=== PATIENT | female | born 1940 | race Caucasian/White ===

== ENCOUNTER 2019-06-08 12:01 | Inpatient (IN) ==
--- NOTE | 2019-06-08 13:03 | Emergency Department Note ---
Nausea/Vomiting/Diarrhea HPI - General Chief complaint: Nausea/Vomiting/Diarrhea Stated complaint: vomiting, diarrhea Time Seen by Provider: 06/08/19 12:51 Source: patient, family Mode of arrival: wheelchair Limitations: no limitations - History of Present Illness HPI Narrative: This 78-year-old female comes accompanied by her daughter from where she lives, [facility], where she resides as a halfway facility due to her disabilities and self-care deficits. She was noted to become weak and even somewhat delirious with lethargy and not her usual smiling self this morning by staff there. She has had a month history of some abdominal pain, nausea and diarrhea.She has had episodes in the past of becoming weak and lethargic when she has had urinary tract infections. She has had these enough in the past that she currently now is on an antibiotic cephalexin and has been so for about 1 week. This was prescribed at [facility] where she has been seen a couple of times. Family also reports that she fell out of bed this morning. Patient has no explanation for this. She believes she injured her right ribs a little bit. There was no head injury. She is not on any chronic anticoagulants. She is on chronic narcotics for low back pain and back surgeries of the past that include 10 mg of hydrocodone 4 times a day and has been for a long period of time. - Related Data Home Medications Medication Instructions Recorded Confirmed magnesium hydroxide 400 mg/5 mL 30 ml PO ONCE ml 12/24/17 06/08/19 oral suspension mirabegron 25 mg tablet,extended 25 mg PO QDAY 12/24/17 06/08/19 release 24 hr tamsulosin 0.4 mg capsule 0.4 mg PO QDAY 12/24/17 06/08/19 tizanidine 4 mg capsule 4 mg PO QHS cap 12/24/17 06/08/19 walker, using at all times 1 dose MISC DAILY #1 each 12/24/17 06/08/19 hydrocodone 10 mg-acetaminophen 1 tab PO QID 07/31/18 06/08/19 325 mg tablet Ferrous Sulfate [Iron] 325 mg PO DAILY 09/29/18 06/08/19 magnesium 250 mg tablet 500 mg PO BID tab 12/16/18 06/08/19 ketorolac 0.5 % eye drops 1 drp OPHTHALMIC QID 02/03/19 06/08/19 prednisolone acetate 1 % eye 1 drp OPHTHALMIC QID 02/03/19 06/08/19 drops,suspension tobramycin 0.3 % eye drops 1 drp OPHTHALMIC QID ml 02/03/19 06/08/19 Cephalexin [Keflex] 1 tab PO DAILY 06/08/19 06/08/19 Previous Rx's Medication Instructions Recorded acetaminophen 325 mg tablet 325 mg PO .COMPLEX PRN #150 tab 12/24/17 docusate sodium 100 mg capsule 100 mg PO QDAY #30 cap 01/08/18 estradiol See Rx Instructions VAGINAL .QOD 01/08/18 #42.5 g meloxicam 7.5 mg tablet 7.5 mg PO QDAY #30 tab 06/24/18 oxybutynin chloride 5 mg tablet 5 mg PO QHS #30 tab 11/12/18 phenazopyridine 97.5 mg tablet 97.5 mg PO TID PRN #30 tab 11/17/18 hydroxyzine HCl 25 mg tablet 25 mg PO QID PRN #30 tab 11/19/18 sodium chloride 1 gram tablet 1,000 mg PO TID #90 tab 12/17/18 blood sugar diagnostic See Rx Instructions .ROUTE 02/03/19 .MEDSUPPLY #50 each blood-glucose meter See Rx Instructions .ROUTE 02/03/19 .MEDSUPPLY #1 each omeprazole 20 mg capsule,delayed See Rx Instructions .ROUTE 03/09/19 release .COMPLEX #30 each diltiazem HCl 90 mg 90 mg PO BID #60 cap 03/18/19 capsule,extended release 12 hr metformin 500 mg tablet 500 mg PO BID #60 tab 03/18/19 metoprolol tartrate 25 mg tablet 25 mg PO BID #60 tab 03/18/19 duloxetine 60 mg capsule,delayed See Rx Instructions .ROUTE 04/13/19 release .COMPLEX #30 each loperamide 2 mg capsule 2 mg PO .COMPLEX PRN #20 cap 04/28/19 furosemide 20 mg tablet 40 mg PO QDAY #60 tab 05/18/19 ondansetron HCl 8 mg tablet 8 mg PO Q8H PRN #30 tab 05/29/19 Allergies Allergy/AdvReac Type Severity Reaction Status Date / Time succinylcholine Allergy Severe Difficulty Verified 06/08/19 12:04 [From Anectine] Breathing ciprofloxacin [From Cipro] Allergy Mild Hives Verified 06/08/19 12:04 Sulfa (Sulfonamide Allergy Mild Hives Verified 06/08/19 12:04 Antibiotics) Past Medical History - Past Medical History Medical history: Denies: CVA, myocardial infarction, TIA - Social History smoking status: Former smoker Physical Exam Limitations: no limitations General appearance: alert, in no apparent distress, thin Head: atraumatic, normocephalic Eye: Present: EOMI ENT: Present: normal oropharynx, mucous membranes moist Neck: Present: trachea midline. Absent: lymphadenopathy, thyromegaly Chest: Present: symmetric chest wall rise, other (Some mild tenderness to palpation in the right lateral chest area.) Respiratory: Present: normal lung sounds bilaterally, rales/crackles (In the right base). Absent: respiratory distress, wheezes, stridor, accessory muscle use, prolonged expiratory phase Cardiovascular: Present: regular rate, tachycardia. Absent: systolic murmur, diastolic murmur Abdominal: Present: soft. Absent: distention, tenderness, guarding, rebound, rigidity, organomegaly, mass Extremities: Absent: pedal edema, pretibial edema, calf tenderness Neurological: Present: alert, oriented X3 Psychiatric: Present: normal affect, normal mood Skin: Present: warm, dry Course Vital Signs Temperature 97.1 F 06/08/19 12:01 Pulse Rate 125 H 06/08/19 12:01 Respiratory Rate 06/08/19 12:01 Blood Pressure 117/70 06/08/19 12:01 Pulse Oximetry (%) 98 06/08/19 12:01 Temperature 97.1 F 06/08/19 12:01 Pulse Rate 113 H 06/08/19 15:46 Respiratory Rate 17 06/08/19 16:31 Blood Pressure 143/81 06/08/19 16:31 Pulse Oximetry (%) 97 06/08/19 15:46 Nausea/Vomiting/Diarrhea - [facility] Narrative Medical decision making narrative: 12:56 PM - weakness and lethargy with history of UTIs causing same but is currently on antibiotic. Also a fall this morning. Broad labs, catheterized urinalysis, chest x-ray with crackles in her right base is necessary as well. No previous cardiac disease but with uncertain source or cause of her weakness will go ahead with EKG as well and a troponin. 1:47 PM - EKG demonstrates left bundle branch block with tachycardia. 2:22 PM - old EKG finally arrives. He did not have the left bundle branch block but similar direction of complexes except in some of the lateral leads. Uncertain transition the left bundle branch block because of the similarities of the QRSs. Will ask for cardiology to assist in an over read. Later discussed the changes and considerations with manager erp, Dr. Willis, and in light of patient without any cardiac specific symptoms patient has simply developed a left bundle branch block and evaluation of coronary artery disease would not necessarily be indicated. A serial troponin could be considered. 5:32 PM - spoke with Dr. Burgess, hospitalist to accept this patient in transfer after reviewing the circumstances. See diagnoses listed. - Lab Data Result diagrams: 06/08/19 12:48 06/08/19 12:48 Lab Results 06/08/19 06/08/19 06/08/19 Range/Units 12:48 12:48 12:48 WBC 12.2 H (4.50-11.00) K/mcL RBC 4.44 (3.59-5.38) M/mcL Hgb 12.9 (11.2-15.7) g/dL Hct 39.9 (34.1-44.9) % MCV 89.9 (80.0-100.0) fL MCH 29.1 (26.0-34.0) pg MCHC 32.3 (31.0-36.0) g/dL RDW 15.2 H (11.5-14.5) % Plt Count 425 (140-440) K/mcL MPV 11.0 H (7.4-10.4) fL Gran % 80.0 H (38.0-78.0) % Lymph % (Auto) 7.2 L (15.5-49.0) % Cottle % (Auto) 12.3 H (1.0-12.0) % Eos % (Auto) 0.3 (0.0-7.0) % Baso % (Auto) 0.2 (0.0-2.0) % Gran # 9.72 H (1.80-8.00) K/mcL Lymph # (Auto) 0.88 L (1.50-4.80) K/mcL Cottle # (Auto) 1.50 H (0.10-0.90) K/mcL Eos # (Auto) 0.04 (0.00-0.70) K/mcL Baso # (Auto) 0.03 (0.00-0.30) K/mcL VBG Lactic Acid (0.5-2.0) mmol/L Sodium 131 L (133-145) mmol/L Potassium 3.6 (3.3-5.1) mmol/L Chloride 87 L (96-108) mmol/L Carbon Dioxide 26 (22-30) mmol/L Anion Gap 18.0 H (8-16) BUN 33 H (8-23) mg/dl Creatinine 1.0 (0.6-1.1) mg/dl GFR Calculation 53 Glucose 234 H (70-105) mg/dL Calcium 8.5 L (8.6-10.4) mg/dl Total Bilirubin 0.4 (0.0-1.0) mg/dL AST 12 (0-37) U/l ALT 11 (0-40) U/l Alkaline Phosphatase 122 H (39-117) U/L Troponin T 0.03 (0-0.03) ng/ml Total Protein 5.9 (5.9-8.4) gm/dL Albumin 3.2 (3.2-5.2) gm/dL Globulin 2.7 (2.2-3.7) gm/dL Albumin/Globulin Ratio 1.2 (1.0-2.3) Urine Color Urine Appearance Urine pH (5.0-9.0) Ur Specific [place] (1.000-1.035) Urine Protein (NEG) mg/dL Urine Glucose (UA) (NEG) mg/dL Urine Ketones (NEG) mg/dL Urine Occult Blood (<0.03) mg/dL Urine Nitrate (NEG) Urine Bilirubin (NEG) mg/dL Urine Urobilinogen (NEG) mg/dL Ur Leukocyte Esterase (NEG) /uL Urine RBC (0-1) /hpf Urine WBC (0-4) /hpf Ur Squamous Epith Cells (0-4) /hpf Ur Transition Epith Cell (0-2) /hpf Urine Bacteria (0) /hpf Urine Mucus (0) /hpf Ur Culture Indicated? 06/08/19 06/08/19 Range/Units 13:22 14:05 WBC (4.50-11.00) K/mcL RBC (3.59-5.38) M/mcL Hgb (11.2-15.7) g/dL Hct (34.1-44.9) % MCV (80.0-100.0) fL MCH (26.0-34.0) pg MCHC (31.0-36.0) g/dL RDW (11.5-14.5) % Plt Count (140-440) K/mcL MPV (7.4-10.4) fL Gran % (38.0-78.0) % Lymph % (Auto) (15.5-49.0) % Cottle % (Auto) (1.0-12.0) % Eos % (Auto) (0.0-7.0) % Baso % (Auto) (0.0-2.0) % Gran # (1.80-8.00) K/mcL Lymph # (Auto) (1.50-4.80) K/mcL Cottle # (Auto) (0.10-0.90) K/mcL Eos # (Auto) (0.00-0.70) K/mcL Baso # (Auto) (0.00-0.30) K/mcL VBG Lactic Acid 1.8 (0.5-2.0) mmol/L Sodium (133-145) mmol/L Potassium (3.3-5.1) mmol/L Chloride (96-108) mmol/L Carbon Dioxide (22-30) mmol/L Anion Gap (8-16) BUN (8-23) mg/dl Creatinine (0.6-1.1) mg/dl GFR Calculation Glucose (70-105) mg/dL Calcium (8.6-10.4) mg/dl Total Bilirubin (0.0-1.0) mg/dL AST (0-37) U/l ALT (0-40) U/l Alkaline Phosphatase (39-117) U/L Troponin T (0-0.03) ng/ml Total Protein (5.9-8.4) gm/dL Albumin (3.2-5.2) gm/dL Globulin (2.2-3.7) gm/dL Albumin/Globulin Ratio (1.0-2.3) Urine Color Yellow Urine Appearance Cloudy Urine pH 5.0 (5.0-9.0) Ur Specific [place] 1.020 (1.000-1.035) Urine Protein 30 A (NEG) mg/dL Urine Glucose (UA) Negative (NEG) mg/dL Urine Ketones 20 A (NEG) mg/dL Urine Occult Blood 0.03 A (<0.03) mg/dL Urine Nitrate Neg (NEG) Urine Bilirubin Neg (NEG) mg/dL Urine Urobilinogen Neg (NEG) mg/dL Ur Leukocyte Esterase 250 A (NEG) /uL Urine RBC 2 H (0-1) /hpf Urine WBC > 182 H (0-4) /hpf Ur Squamous Epith Cells 2 (0-4) /hpf Ur Transition Epith Cell 1 (0-2) /hpf Urine Bacteria Few A (0) /hpf Urine Mucus Few (0) /hpf Ur Culture Indicated? Yes Disposition Pt seen by ADVERTISING OPERATIONS MANAGER/PA only: No Clinical Impression: Lethargy, Pseudomonas urinary tract infection Sepsis Qualifiers: Sepsis type: Pseudomonas Sepsis acute organ dysfunction status: without acute organ dysfunction Qualified Code(s): A41.52 - Sepsis due to Pseudomonas Change in mental status Qualifiers: Altered mental status type: unspecified Qualified Code(s): R41.82 - Altered mental status, unspecified Disposition: Xfer As Inpt ([facility]) Condition: Fair Referrals: Amber Mak ARNP [Primary Care Provider] -
[2019-06-08] MEDS ORDERED: 0.9 % SODIUM CHLORIDE 1,000 ML IV ONE (13:13)
[2019-06-08 13:44] LABS: ALT/SGPT 11 U/l (0-40); AST/SGOT 12 U/l (0-37); Albumin 3.2 gm/dL (3.2-5.2); Albumin/Globulin Ratio 1.2 (1.0-2.3); Alkaline Phosphatase 122 U/L (39-117); Bilirubin,Total 0.4 mg/dL (0.0-1.0); Blood Urea Nitrogen 33 mg/dl (8-23); Calcium 8.5 mg/dl (8.6-10.4); Carbon Dioxide 26 mmol/L (22-30); Chloride 87 mmol/L (96-108); Globulin 2.7 gm/dL (2.2-3.7); Glomerular Filtration Rate 53; Glucose 234 mg/dL (70-105)
[2019-06-08 13:52] LABS: Basophils # (Auto) 0.03 K/mcL (0.00-0.30); Basophils % (Auto) 0.2 % (0.0-2.0); Eosinophils # (Auto) 0.04 K/mcL (0.00-0.70); Eosinophils % (Auto) 0.3 % (0.0-7.0); Hematocrit 39.9 % (34.1-44.9); Hemoglobin 12.9 g/dL (11.2-15.7); Lymphocytes # (Auto) 0.88 K/mcL (1.50-4.80); Lymphocytes % (Auto) 7.2 % (15.5-49.0); Mean Cell Volume 89.9 fL (80.0-100.0); Mean Corpuscular HGB Conc 32.3 g/dL (31.0-36.0); Monocytes % (Auto) 12.3 % (1.0-12.0); Platelet Count 425 K/mcL (140-440); RBC 4.44 M/mcL (3.59-5.38); Red Cell Distribution Width 15.2 % (11.5-14.5); WBC 12.2 K/mcL (4.50-11.00)
--- NOTE | 2019-06-08 13:52 | XRay Report ---
CLINICAL INFORMATION:Confusion. Weakness TECHNIQUE: AP portable semiupright chest x-ray COMPARISON: Previous chest x-rays dated 09/23/2015 and 04/21/2015 FINDINGS:Lungs are negative. No parenchymal infiltrate or mass. No focal abnormality. Heart size and vascularity are normal. No pulmonary edema or pulmonary congestion. Carolee and mediastinum are negative. Incidental note is made of calcification of the mitral valve annulus. There is been previous surgical resection of the distal right clavicle IMPRESSION: 1. Negative AP chest x-ray 2. No interval change since 09/23/2015 Interpreted and Authenticated by: Rob Michaud 06/08/19
[2019-06-08 15:19] LABS: Appearance,Urine CLOUDY; Bacteria,Urine FEW /hpf (0); Bilirubin,Urine NEG (NEG); Color,Urine YELLOW; Culture Indicated,Urine YES; Glucose,Urine (UA) NEGATIVE (NEG); Ketones,Urine 20 mg/dL (NEG); Leukocyte Esterase,Urine 250 /uL (NEG); Mucus,Urine FEW /hpf (0); Nitrate,Urine NEG (NEG); Protein,Urine 30 mg/dL (NEG); Urine Blood 0.03 mg/dL (<0.03); Urine RBC 2 /hpf (0-1); Urine Squamous Epithelial Cell 2 /hpf (0-4); Urine Transitional Epi Cells 1 /hpf (0-2); Urine WBC > 182 /hpf (0-4); Urobilinogen,Urine NEG (NEG)
[2019-06-08] MEDS ORDERED: 0.9 % SODIUM CHLORIDE 500 ML IV ONE (16:07)
[2019-06-08] MEDS ORDERED: LORATADINE 10 MG TABLET PO ONE (16:10)
[2019-06-08] MEDS ORDERED: LEVOFLOXACIN 500 MG/100 ML BAG IV ONE ×3 (16:11→23:54)
--- NOTE | 2019-06-08 18:19 | Internal Med History&Physical ---
Medical - H&P: [facility] Patient information: Note initiated : 06/08/19 at 6:13 pm Service Date, if different from initiated Date: [] Patient: Esme Soriano a 78 y/o F admitted on for vomiting, diarrhea. Chief Complaint: [] Chief complaint: Diarrhea vomiting weakness History of present illness: Ms. Soriano is a 78 year old F resident of [facility] who presents with progressive weakness following multiple episodes of diarrhea vomiting. Patient has had a progressive decline in her functional status and over the last 24 hours have became increasingly confused. She also sustained an unwitnessed fall at the [facility] center due to her increasing weakness she however does not recollect the exact time and events leading up to fall. She was brought in the ER for evaluation. Initial work-up was consistent with low-grade fever, significant pyuria/elevated white count, tachycardia consistent with sepsis. Hospitalist service was consulted. At the time evaluation patient is minimal responsive although she is able to answer some of the questions and respond to review of systems. No family members are present. Most of the history is obtained from review of medical records and ER physician. Patient was started on antibiotic coverage. Blood cultures were unable to be drawn after multiple attempts. Prior urine cultures shows pansensitive Pseudomonas. Patient was started on Levaquin in the ER. Patient has a low- grade fever, endorses to chest pain following trauma from fall. Also endorses to chronic back pain but denies headache photophobia. Unable to provide a detailed history. Feels weak and lethargic. Review systems 10 point review system was performed and is negative except ones discussed above Medical - H&P: [facility] Medical history: Pre-diabetes (Chronic) 12/24/18 A1C 6.3 02/03/2019 discussed results of recent blood sugars and A1c, discussed risk associated with elevated blood sugars, specifically infection, plan to trial metformin and blood sugar checking, encouraged her to be as active as possible, healthy diet, labs in 1 week and again in 6 weeks. Follow-up with me in 8 weeks. 03/18/2019 A1c 6.5 declined, increase metformin twice daily, follow-up in 3 months before next appointment with me Infection due to Pseudomonas aeruginosa [place] Epidemic Strain (Chronic) Lumbar back pain (Chronic) Encounter for mini-mental status examination (Chronic) 03/06/18 Mini mental exam normal 30/30 Systolic murmur (Chronic) Opioid dependence (Chronic) GERD (gastroesophageal reflux disease) (Chronic) 12/24/17 taking omeprazole Macular degeneration (Chronic) 12/24/17 refer to ophthalmology Chronic constipation (Chronic) Take senna twice daily Urinary incontinence (Chronic) 12/24/17 refer to new urologist at patient request Benign heart murmur (Chronic) History of recurrent UTIs (Chronic) with confusion and falling- on chronic methenamine BID now 11/05/2018 recent hospitalization for UTI, urology follow-up appointment scheduled for patient, continue Keflex Chronic right shoulder pain (Chronic) with chronic neck pain 05/07/18 obtain x-rays and start PT 04/28/2019 obtain shoulder & neck x-rays, start PT, continue current pain medication regimen, follow-up 1 month Chronic low back pain (Chronic) Muscle weakness (Chronic) chronic, legs Hypo-osmolality and hyponatremia (Chronic) 12/24/17 recently patient has been refusing her sodium 3 times daily, check labs today 02/11/18 continue sodium chloride at thousand 3 times daily, labs stable with regimen 12/17/2018 she has been off sodium chloride for an unknown time, sodium and chloride low, restart sodium chloride at thousand 3 times daily, check labs in 1 month and follow-up with me in 3 months Vitamin D deficiency (Chronic) Vitamin B 12 deficiency (Chronic) taking B12 twice a day 02/11/18 B12 elevated on labs okay to continue B12 once a day Overactive bladder (Chronic) Chronic pain (Chronic) 12/24/17 MED greater than 120 mg, consult pain Clinic, refer to physical therapy, discussed use of non-for pharmacologic ways to improve pain, gentle stretching, range of motion, use of heat, continue fentanyl 50, plan to taper down hydrocodone use at next refill 01/15/18, discussed this strategy with patient and daughter 05/07/18 cont Cymbalta 60, refer back to [facility] for chronic pain issues, cont care with the pain clinic, fentanyl patch decreased today and hydrocodone dose increased 08/06/18 continue care with the above providers Depression (Chronic) 03/06/18 continue duloxetine 60 daily, she will need a PHQ 9 at follow-up 12/17/2018 PHQ 9= 5. continue duloxetine 60 daily, follow-up 3 months 03/18/2019 reportedly stable, unable to fill out PHQ 9 today because she does not have glasses, continue duloxetine and follow-up in 3 months Hypertension (Chronic) Taken off losartan for hyperkalemia 11/05/18 SNF hasn't been giving her losartan and she needs to take it regularly, check labs today, continue furosemide 40 daily, f/u 6 weeks 12/17/2018 elevated, add diltiazem 60 twice daily, continue metoprolol 50 twice daily, check labs in 1 month, follow-up in 3 months 03/18/2019 elevated today, adjustment made on medication today because of hyperkalemia, decrease metoprolol 25 twice daily, increase diltiazem 90 twice daily, check blood pressure at [facility], bring to next appointment, check labs in 3 months before next appointment with me Osteoporosis (Chronic) last dexa scan 2 years ago, taking fosamax 12/24/17 obtain DEXA scan Muscle pain (Chronic) Arthritis (Chronic) chronic arthritis Incisional hernia (Chronic) repair after C/S Surgical History H/O section (Chronic) x2 H/O colonoscopy (Chronic) done in [place] H/O gastric bypass (Chronic) History of back surgery (Chronic) x2 History of cholecystectomy (Chronic) History of hernia surgery (Chronic) History of hysterectomy (Chronic ~1968) History of shoulder surgery (Chronic) Right History of total bilateral knee replacement (Chronic) Hx of cataract surgery (Chronic) Dr. Ricardo, charu eyes 01/2019 Family History Mother Arthritis Diabetes Father Arthritis Cancer Prostate cancer Brother Cancer Esophageal cancer Social History adopted: No caregiver/support person: No foster care: No household members: alone housing: assisted living facility lives independently: No marital status: education level: high school service: No longterm: No occupational status: retired occupational exposures/hazards: No pets and animals: No leisure activities: games hx recent travel: No sexually active: No smoking status: Former smoker alcohol intake frequency: does not drink substance use type: does not use Medical - H&P: Meds Home Medications Medication Instructions Recorded Confirmed Type acetaminophen 325 mg tablet 325 mg PO .COMPLEX PRN #150 tab 12/24/17 06/08/19 Rx magnesium hydroxide 400 mg/5 mL 30 ml PO ONCE ml 12/24/17 06/08/19 History oral suspension mirabegron 25 mg tablet,extended 25 mg PO QDAY 12/24/17 06/08/19 History release 24 hr tamsulosin 0.4 mg capsule 0.4 mg PO QDAY 12/24/17 06/08/19 History tizanidine 4 mg capsule 4 mg PO QHS cap 12/24/17 06/08/19 History walker, using at all times 1 dose MISC DAILY #1 each 12/24/17 06/08/19 History docusate sodium 100 mg capsule 100 mg PO QDAY #30 cap 01/08/18 06/08/19 Rx estradiol See Rx Instructions VAGINAL .QOD 01/08/18 06/08/19 Rx #42.5 g meloxicam 7.5 mg tablet 7.5 mg PO QDAY #30 tab 06/24/18 06/08/19 Rx hydrocodone 10 mg-acetaminophen 1 tab PO QID 07/31/18 06/08/19 History 325 mg tablet Ferrous Sulfate [Iron] 325 mg PO DAILY 09/29/18 06/08/19 History oxybutynin chloride 5 mg tablet 5 mg PO QHS #30 tab 11/12/18 06/08/19 Rx phenazopyridine 97.5 mg tablet 97.5 mg PO TID PRN #30 tab 11/17/18 06/08/19 Rx hydroxyzine HCl 25 mg tablet 25 mg PO QID PRN #30 tab 11/19/18 06/08/19 Rx magnesium 250 mg tablet 500 mg PO BID tab 12/16/18 06/08/19 History sodium chloride 1 gram tablet 1,000 mg PO TID #90 tab 12/17/18 06/08/19 Rx blood sugar diagnostic See Rx Instructions .ROUTE 02/03/19 06/08/19 Rx .MEDSUPPLY #50 each blood-glucose meter See Rx Instructions .ROUTE 02/03/19 06/08/19 Rx .MEDSUPPLY #1 each ketorolac 0.5 % eye drops 1 drp OPHTHALMIC QID 02/03/19 06/08/19 History prednisolone acetate 1 % eye 1 drp OPHTHALMIC QID 02/03/19 06/08/19 History drops,suspension tobramycin 0.3 % eye drops 1 drp OPHTHALMIC QID ml 02/03/19 06/08/19 History omeprazole 20 mg capsule,delayed See Rx Instructions .ROUTE 03/09/19 06/08/19 Rx release .COMPLEX #30 each diltiazem HCl 90 mg 90 mg PO BID #60 cap 03/18/19 06/08/19 Rx capsule,extended release 12 hr metformin 500 mg tablet 500 mg PO BID #60 tab 03/18/19 06/08/19 Rx metoprolol tartrate 25 mg tablet 25 mg PO BID #60 tab 03/18/19 06/08/19 Rx duloxetine 60 mg capsule,delayed See Rx Instructions .ROUTE 04/13/19 06/08/19 Rx release .COMPLEX #30 each loperamide 2 mg capsule 2 mg PO .COMPLEX PRN #20 cap 04/28/19 06/08/19 Rx furosemide 20 mg tablet 40 mg PO QDAY #60 tab 05/18/19 06/08/19 Rx ondansetron HCl 8 mg tablet 8 mg PO Q8H PRN #30 tab 05/29/19 06/08/19 Rx Cephalexin [Keflex] 1 tab PO DAILY 06/08/19 06/08/19 History Allergies Allergy/AdvReac Type Severity Reaction Status Date / Time succinylcholine Allergy Severe Difficulty Verified 06/08/19 12:04 [From Anectine] Breathing ciprofloxacin [From Cipro] Allergy Mild Hives Verified 06/08/19 12:04 Sulfa (Sulfonamide Allergy Mild Hives Verified 06/08/19 12:04 Antibiotics) Medical - H&P: Exam - Constitutional Vitals: Temp Pulse Resp BP Pulse Ox 97.1 F 113 H 17 143/81 97 06/08/19 12:01 06/08/19 15:46 06/08/19 16:31 06/08/19 16:31 06/08/19 15:46 General appearance: moderate distress (Confused) Exam: Head normocephalic Oral cavity dry Eye movement symmetrical No ear nose discharge Neck no lymphadenopathy S1-S2 occasionally irregular rhythm with ESM grade 2, tachycardia Diminished breath sounds bases Abdomen soft nontender Lower extremity no sinus clubbing, areas of bruising/keratosis Skin no suspicious lesion Psych anxious fatigue lethargic Neuro abnormal higher functions Symmetrical bilateral strength and movement Medical - H&P: Reslt - Labs CBC & Chem 7: 06/09/19 05:11 06/09/19 05:00 Labs: Short CBC 06/08/19 Range/Units 12:48 WBC 12.2 H (4.50-11.00) K/mcL Hgb 12.9 (11.2-15.7) g/dL Hct 39.9 (34.1-44.9) % Plt Count 425 (140-440) K/mcL BMP 06/08/19 12:48 Sodium 131 L Potassium 3.6 Chloride 87 L Carbon Dioxide 26 BUN 33 H Creatinine 1.0 Glucose 234 H Calcium 8.5 L Cardiac Enzymes 06/08/19 Range/Units 12:48 Troponin T 0.03 (0-0.03) ng/ml Liver Function 06/08/19 Range/Units 12:48 Total Bilirubin 0.4 (0.0-1.0) mg/dL AST 12 (0-37) U/l ALT 11 (0-40) U/l Alkaline Phosphatase 122 H (39-117) U/L Albumin 3.2 (3.2-5.2) gm/dL Urine 06/08/19 Range/Units 14:05 Urine Color Yellow Urine Appearance Cloudy Urine pH 5.0 (5.0-9.0) Ur Specific [place] 1.020 (1.000-1.035) Urine Protein 30 A (NEG) mg/dL Urine Glucose (UA) Negative (NEG) mg/dL Medical - H&P: A/P (1) Pseudomonas urinary tract infection Current visit: Yes Status: Acute * Complicated Pseudomonas UTI-start antibiotic coverage based on sensitivities. Recurrent despite prophylactic antibiotics * Septic shock with endorgan dysfunction-secondary to above. Continue loren gement guidelines. Check venous lactate. Continue crystalloids. Pressors if indicated. * Hyponatremia-likely hypovolemic. Continue crystalloids * Diarrhea rule out C. difficile. * DM type II continue CC diet/sliding scale insulin * Anxiety disorder continue Cymbalta * Chronic back pain/DJD - joint disease hold NSAIDs until sepsis resolves. Continue hydrocodone at home dose * History of hypertension hold metoprolol/Cardizem until sepsis resolves * Full Code Plan * Initiate antibiotic coverage for Pseudomonas coverage * Inpatient admit, Loíza 2 score 17 indicating high risk mortality * Sepsis management per guidelines with crystalloids and vasopressors, lactate trending * Stool studies * Monitor renal function * Pre-existing medical condition management on home meds * PT OT nutrition support * Discharge planning likely SNF Time spent on history physical in excess of 65 minutes Additional 35 minutes critical care time spent on management of septic shock
[2019-06-08] MEDS ORDERED: MELATONIN 3 MG TABLET PO PRN (19:54)
[2019-06-08] MEDS ORDERED: ONDANSETRON 4 MG ODT TABLET SL PRN (19:54)
[2019-06-08] MEDS ORDERED: guaiFENesin/CODEINE 10 ML UDC PO PRN (19:54)
[2019-06-08] MEDS ORDERED: ACETAMINOPHEN 325 MG TABLET PO PRN (19:54)
[2019-06-08] MEDS ORDERED: BISACODYL 10 MG SUPP.RECT PR PRN (19:54)
[2019-06-08] MEDS ORDERED: LOPERAMIDE 2 MG CAPSULE PO PRN (19:54)
[2019-06-08] MEDS ORDERED: POTASSIUM CHLORIDE 20 MEQ PACKET PO PRN (19:54)
[2019-06-08] MEDS ORDERED: DEXTROSE 50% 50 ML VIAL IV PRN (19:54)
[2019-06-08] MEDS ORDERED: POLYETHYLENE GLYCOL 3350 17 GM PACKET PO PRN (19:54)
[2019-06-08] MEDS ORDERED: MAGNESIUM SULFATE 2 GM/50 ML BAG IV PRN (19:54)
[2019-06-08] MEDS ORDERED: DEXTROSE 31 GM ORAL.SUSP PO PRN (19:54)
[2019-06-08] MEDS ORDERED: cefTRIAXone 1 GM VIAL ONE (20:01)
[2019-06-08] MEDS: 0.9 % SODIUM CHLORIDE 1,000 ML IV SCH (20:15)
[2019-06-08] MEDS: MAGNESIUM HYDROXIDE 30 ML ORAL.SUSP PO SCH (20:37)
[2019-06-08] MEDS ORDERED: DILTIAZEM HCL 90 MG PO SCH (21:00)
[2019-06-08] MEDS: tiZANidine 4 MG TABLET PO SCH (22:06)
[2019-06-08] MEDS: DOCUSATE SODIUM 100 MG CAPSULE PO SCH (22:07)
[2019-06-08] MEDS: METOPROLOL TARTRATE 25 MG TABLET PO SCH (22:07)
[2019-06-08] MEDS: prednisoLONE 1% OPHTH DROPS 1ML BOTTLE OU SCH (22:07)
[2019-06-08] MEDS: HYDROcodone/APAP 10/325MG TABLET PO SCH (22:07)
[2019-06-08] MEDS: HEPARIN 5,000 UNIT/ML VIAL SQ SCH (22:07)
[2019-06-08] MEDS: SODIUM CHLORIDE 1 GM TABLET PO SCH (22:07)
[2019-06-08] MEDS: 0.9 % SODIUM CHLORIDE 10 ML SYRINGE IV SCH (22:08)
[2019-06-08] MEDS: SENNOSIDES/DOCUSATE SODIUM 1 TAB TABLET PO SCH (22:08)
[2019-06-08] MEDS: TOBRAMYCIN 0.3% OU SCH (22:08)
[2019-06-08] MEDS: ONDANSETRON 4 MG/2 ML VIAL IV PRN (22:56)
[2019-06-08] MEDS ORDERED: NOREPINEPHRINE BITARTRATE 4 MG/4 ML VIAL IV ONE (23:32)
[2019-06-08] MEDS: NOREPINEPHRINE BITARTRATE 16 MG in 0.9 % SODIUM CHLORIDE 234 ML IV SCH (23:45)
[2019-06-09] MEDS: INSULIN LISPRO 1 UNIT/0.01 ML UNIT SQ SCH ×5 (01:18→21:27)
[2019-06-09] MEDS: 0.9 % SODIUM CHLORIDE 250 ML IV SCH ×2 (01:31→14:52)
[2019-06-09] MEDS: ACETAMINOPHEN 650 MG/65 ML BOTTLE IV PRN ×2 (01:45→19:28)
[2019-06-09] MEDS: 0.9 % SODIUM CHLORIDE 10 ML SYRINGE IV SCH ×3 (05:57→20:46)
--- NOTE | 2019-06-09 06:27 | Ultrasound Report ---
CLINICAL INFORMATION: Renal failure. Possible obstructive uropathy TECHNIQUE: Grayscale and color flow Doppler spectral imaging COMPARISON: Previous CT scan dated 06/04/2019 FINDINGS: Previous cholecystectomy. Common bile duct measures 9 mm. No intrahepatic bile duct dilatation. No detectable choledocholithiasis No focal intrahepatic abnormality. Liver contour is smooth. There is minimal free ascitic fluid. Spleen is not enlarged. Normal hepatopedal portal venous flow. Pancreas is not visualized. Right kidney measures 9.2 x 4.4 x 5.0 cm. There is a benign 1.6 cm right renal cyst. There is no hydronephrosis. No solid mass. No detectable calculi. Left kidney measures 8.9 x 4.3 x 4.0 cm. No solid or cystic mass. No hydronephrosis. Bladder is suboptimally evaluated as this patient voided during the examination. There is debris within the urinary bladder. IMPRESSION: 1. No hydronephrosis. 2. Debris within the urinary bladder. 3. Trace ascitic fluid Interpreted and Authenticated by: Rob Michaud 06/09/19
[2019-06-09] MEDS ORDERED: DOCUSATE SODIUM 100 MG CAPSULE PO SCH (09:00)
[2019-06-09] MEDS: DILTIAZEM 120 MG CAP.XL.24H PO SCH (09:07)
[2019-06-09] MEDS: METOPROLOL TARTRATE 25 MG TABLET PO SCH ×2 (09:09→21:41)
[2019-06-09] MEDS ORDERED: MAGNESIUM CITRATE 300 ML ORAL.SOL PO ONE (09:10)
[2019-06-09 09:31] LABS: Hematocrit 35.5 % (34.1-44.9); Hemoglobin 11.7 g/dL (11.2-15.7); Mean Platelet Volume 11.3 fL (7.4-10.4); Platelet Count 416 K/mcL (140-440); RBC 3.86 M/mcL (3.59-5.38); Red Cell Distribution Width 15.8 % (11.5-14.5); WBC 10.9 K/mcL (4.50-11.00)
[2019-06-09 09:40] LABS: Bilirubin,Direct < 0.2 mg/dL (0.0-0.3); Chloride 97 mmol/L (96-108)
[2019-06-09 09:44] LABS: ALT/SGPT 10 U/l (0-40); AST/SGOT 15 U/l (0-37); Albumin 2.6 gm/dL (3.2-5.2); Alkaline Phosphatase 105 U/L (39-117); Bilirubin,Total 0.2 mg/dL (0.0-1.0); Blood Urea Nitrogen 26 mg/dl (8-23); Calcium 7.1 mg/dl (8.6-10.4); Carbon Dioxide 20 mmol/L (22-30); Globulin 2.5 gm/dL (2.2-3.7); Glomerular Filtration Rate 70; Glucose 203 mg/dL (70-105); Lactate Dehydrogenase 345 U/L (94-250); Phosphorous 2.1 mg/dL (2.7-4.5); Triglycerides 92 mg/dl (<150); Uric Acid 8.2 mg/dL (2.5-8.0)
[2019-06-09] MEDS: cefTRIAXone 2 GM in DEXTROSE 5% IN WATER 50 ML IV SCH (10:10)
[2019-06-09] MEDS: DULoxetine 30 MG CAPSULE PO SCH (10:10)
[2019-06-09] MEDS: THIAMINE 100 MG TABLET PO SCH (10:11)
[2019-06-09] MEDS: HYDROcodone/APAP 10/325MG TABLET PO SCH ×4 (10:11→20:45)
[2019-06-09] MEDS: TAMSULOSIN 0.4 MG CAPSULE PO SCH (10:11)
[2019-06-09] MEDS: MELOXICAM 7.5 MG TABLET PO SCH ×2 (10:11→10:16)
[2019-06-09] MEDS: MULTIVIT,THER IRON,CA,FA & MIN 1 TABLET PO SCH (10:11)
[2019-06-09] MEDS: MAGNESIUM OXIDE 400 MG TABLET PO SCH ×2 (10:11→20:45)
[2019-06-09] MEDS: sitaGLIPtin 100 MG TABLET PO SCH (10:11)
[2019-06-09] MEDS: DOCUSATE SODIUM 100 MG CAPSULE PO SCH ×2 (10:12→20:45)
[2019-06-09] MEDS: HEPARIN 5,000 UNIT/ML VIAL SQ SCH ×2 (10:12→20:44)
[2019-06-09] MEDS: SODIUM CHLORIDE 1 GM TABLET PO SCH ×3 (10:20→20:45)
--- NOTE | 2019-06-09 10:24 | Internal Med Progress Note ---
Medical - PN: Subj Patient information: Note initiated : 06/09/19 at 10:21 am Service Date, if different from initiated Date: [] Patient: Esme Soriano a 78 y/o F admitted on 06/08/19 for vomiting, diarrhea. Chief Complaint: [] Interval history: Ms. Soriano is a 78 year old F resident of [facility] who presents with progressive weakness following multiple episodes of diarrhea vomiting. Patient has had a progressive decline in her functional status and over the last 24 hours have became increasingly confused. She also sustained an unwitnessed fall [facility] due to her increasing weakness she however does not recollect the exact time and events leading up to fall. She was brought in the ER for evaluation. Initial work-up was consistent with low-grade fever, significant pyuria/elevated white count, tachycardia consistent with sepsis. Hospitalist service was consulted. At the time evaluation patient is minimal responsive although she is able to answer some of the questions and respond to review of systems. No family members are present. Most of the history is obtained from review of medical records and ER physician. Patient was started on antibiotic coverage. Blood cultures were unable to be drawn after multiple attempts. Prior urine cultures shows pansensitive Pseud omonas. Patient was started on Levaquin in the ER. Patient has a low-grade fever, endorses to chest pain following trauma from fall. Also endorses to chronic back pain but denies headache photophobia. Unable to provide a detailed history. Feels weak and lethargic. 06/09-patient hemodynamically improving currently on vasopressors down from 15 mics to 8 mics. Systolics improved from 60s and now achieving a map over 65. Improving urine output. Improving endorgan dysfunction. More alert lucid and respond to commands. Complaining of suprapubic tenderness however abdominal ultrasound no evidence of hydronephrosis. No family at bedside. Tachycardia down from 120s to low 100. T-max 101.5. Blood cultures pending. Remains critically ill. Continue treatment per guidelines - Constitutional Vitals: Vital Signs Temp Pulse Resp BP Pulse Ox 100.5 F H 85 19 124/74 99 06/09/19 09:17 06/09/19 07:04 06/09/19 08:46 06/09/19 09:16 06/09/19 07:04 Period Temp Pulse Resp BP Sys/Romero Pulse Ox Last 24 Hr 97.1 F-100.6 F 63-125 9-29 63-159/38-119 93-100 Intake and Output 06/08/19 06/09/19 06/09/19 21:59 05:59 13:59 Intake Total 1500 227 23 Output Total 1 320 Balance 1499 -93 23 Weight 118 lb 12.8 oz Intake & Output: Intake & Output 06/08/19 06/09/19 06/09/19 21:59 05:59 13:59 Intake Total 1500 227 23 Output Total 1 320 Balance 1499 -93 23 Weight 118 lb 12.8 oz Intake: IV 1500 227 23 Sodium Chloride 0.9% 1,000 ml @ 1000 Wide Open IV BOLUS ONE Rx#: [id number] Sodium Chloride 0.9% 500 ml @ 500 Wide Open IV B[facility] ONE Rx#: [id number] Levophed 16 mg In Sodium 62 23 Chloride 0.9% 234 ml @ 10 MCG/ MIN 9.375 mls/hr IV Q24H [facility] Rx #:[id number] Output: Urine Catheter Amount 320 # of times incontinent of urine 1 Other: Urine Appearance Cloudy Mucous Threads Fem Cath Cloudy Uretheral (Chakraborty) Cloudy Mucous Threads Urine Color Dark Yellow Fem Cath Pale Uretheral (Chakraborty) Bright Yellow General appearance: no acute distress Exam: Alert oriented Tachycardia improving Chakraborty is draining cloudy urine Complains of suprapubic tenderness Medical - PN: Obj Da - Labs CBC & Chem 7: 06/09/19 05:11 06/09/19 05:00 Labs: Abnormal Lab Results 06/09/19 06/09/19 06/08/19 05:11 05:00 14:05 WBC RDW 15.8 H MPV 11.3 H Gran % Lymph % (Auto) Allen % (Auto) Gran # Lymph # (Auto) Allen # (Auto) Sodium Chloride Carbon Dioxide 20 L Anion Gap 19.0 H BUN 26 H Glucose 203 H Uric Acid 8.2 H Calcium 7.1 L Phosphorus 2.1 L Alkaline Phosphatase Lactate Dehydrogenase 345 H Total Protein 5.1 L Albumin 2.6 L Urine Protein 30 A Urine Ketones 20 A Urine Occult Blood 0.03 A Ur Leukocyte Esterase 250 A Urine RBC 2 H Urine WBC > 182 H Urine Bacteria Few A 06/08/19 06/08/19 12:48 12:48 WBC 12.2 H RDW 15.2 H MPV 11.0 H Gran % 80.0 H Lymph % (Auto) 7.2 L Allen % (Auto) 12.3 H Gran # 9.72 H Lymph # (Auto) 0.88 L Allen # (Auto) 1.50 H Sodium 131 L Chloride 87 L Carbon Dioxide Anion Gap 18.0 H BUN 33 H Glucose 234 H Uric Acid Calcium 8.5 L Phosphorus Alkaline Phosphatase 122 H Lactate Dehydrogenase Total Protein Albumin Urine Protein Urine Ketones Urine Occult Blood Ur Leukocyte Esterase Urine RBC Urine WBC Urine Bacteria Meds: Medications Acetaminophen (Tylenol) 650 mg PO Q4-6HP PRN; Protocol PRN Reason: Per Pain Protocol/Fever > 101 Hydrocodone Bitart/Acetaminophen ([place] 10/325mg) 1 tab PO QID [facility]; Protocol Last Admin: 06/09/19 10:11 Dose: 1 tab Documented by: Bisacodyl (Dulcolax) 10 mg OK Q2-3DAYS PRN PRN Reason: Constipation Dextrose (Dextrose 50%) 0 ml IV UD PRN PRN Reason: Hypoglycemia Diagnostic Test (Pha) (Accu-Chek) 1 each FS ACHS [facility] Last Admin: 06/09/19 08:32 Dose: 1 each Documented by: Diltiazem HCl (Cardizem Cd) 120 mg PO DAILY [facility] Last Admin: 06/09/19 09:07 Dose: Not Given Documented by: Docusate Sodium (Colace) 100 mg PO BID [facility] Last Admin: 06/09/19 10:12 Dose: Not Given Documented by: Duloxetine HCl (Cymbalta) 60 mg PO DAILY [facility] Last Admin: 06/09/19 10:10 Dose: 60 mg Documented by: Glucose (Insta-Glucose) 15 gm PO PRN PRN PRN Reason: Hypoglycemia Guaifenesin/Codeine Phosphate (Robitussin Ac) 10 ml PO Q4HP PRN PRN Reason: Cough Heparin Sodium (Porcine) (Heparin) 5,000 unit SQ Q12 [facility] Last Admin: 06/09/19 10:12 Dose: 5,000 unit Documented by: Sodium Chloride (Sodium Chloride 0.9%) 1,000 mls @ 50 mls/hr IV .Q20H [facility] Stop: 06/11/19 07:53 Last Admin: 06/08/19 20:15 Dose: 50 mls/hr Documented by: Acetaminophen (Ofirmev) 650 mg in 65 mls @ 130 mls/hr IV Q6HP PRN; Protocol PRN Reason: Per Pain Protocol/Fever > 101 Last Infusion: 06/09/19 02:27 Dose: Infused Documented by: Magnesium Sulfate (Magnesium Sulfate) 2 gm in 50 mls @ 50 mls/hr IV UD PRN PRN Reason: MG = or < 1.7 Ceftriaxone Sodium 2 gm/ (Dextrose) 50 mls @ 100 mls/hr IV Q24H [facility]; Protocol Last Admin: 06/09/19 10:10 Dose: 100 mls/hr Documented by: Norepinephrine Bitartrate 16 (mg/ Sodium Chloride) 250 mls @ 9.375 mls/hr IV Q24H [facility]; Protocol Last Titration: 06/09/19 07:12 Dose: 8 mcg/min, 7.5 mls/hr Documented by: Sodium Chloride (Sodium Chloride 0.9%) 250 mls @ 20 mls/hr IV .[id number] [facility] Last Admin: 06/09/19 01:31 Dose: 20 mls/hr Documented by: Insulin Human Lispro (Humalog) 0 unit SQ ACHS [facility]; Protocol Last Admin: 06/09/19 10:10 Dose: 3 units Documented by: Iron Carb/Multivit/[place]/Folic Acid (Multivitamin W/Minerals) 1 tab PO DAILY [facility] Last Admin: 06/09/19 10:11 Dose: 1 tab Documented by: Loperamide HCl (Imodium) 2 mg PO PRN PRN PRN Reason: loose stool Magnesium Hydroxide (Milk Of Magnesia) 30 ml PO ONCE [facility] Last Admin: 06/08/19 20:37 Dose: Not Given Documented by: Magnesium Oxide (Magnesium Oxide) 400 mg PO BID [facility] Last Admin: 06/09/19 10:11 Dose: 400 mg Documented by: Melatonin (Melatonin 3mg Tablet) 3 mg PO HSP PRN PRN Reason: Insomnia Meloxicam (Mobic) 7.5 mg PO QDAY [facility]; Protocol Last Admin: 06/09/19 10:16 Dose: Not Given Documented by: Metoprolol Tartrate (Lopressor) 25 mg PO BID [facility] Last Admin: 06/09/19 09:09 Dose: Not Given Documented by: Ondansetron HCl (Zofran Odt) 4 mg SL Q4-6HP PRN; Protocol PRN Reason: Nausea And Vomiting Ondansetron HCl (Zofran) 4 mg IV Q4-6HP PRN; Protocol PRN Reason: Nausea And Vomiting Last Admin: 06/08/19 22:56 Dose: 4 mg Documented by: Mirabegron [ (Myrbetriq] 25 Mg) 1 dose PO QDAY [facility] Phenazopyridine HCl (Pyridium) 200 mg PO TIDP PRN PRN Reason: Dysuria Polyethylene Glycol (Miralax) 17 gm PO DAILYP PRN PRN Reason: Constipation Potassium Chloride (Klor-Con) 40 meq PO DAILYP PRN PRN Reason: K+ < 3.5 Prednisolone Acetate (Pred Forte Ophth Drops) 1 gtt OU QID [facility] Last Admin: 06/08/19 22:07 Dose: Not Given Documented by: Senna/Docusate Sodium (Senna Plus Tablet) 1 tab PO [facility] Last Admin: 06/08/19 22:08 Dose: Not Given Documented by: Sitagliptin Phosphate (Januvia) 100 mg PO DAILY [facility] Last Admin: 06/09/19 10:11 Dose: 100 mg Documented by: Sodium Chloride (Saline Flush) 10 ml IV Q8 [facility] Last Admin: 06/09/19 05:57 Dose: Not Given Documented by: Sodium Chloride (Sodium Chloride) 1 gm PO TID [facility] Last Admin: 06/09/19 10:20 Dose: 1 gm Documented by: Tamsulosin HCl (Flomax) 0.4 mg PO QDAY [facility] Last Admin: 06/09/19 10:11 Dose: 0.4 mg Documented by: Thiamine HCl (Vitamin B1) 100 mg PO DAILY [facility] Last Admin: 06/09/19 10:11 Dose: 100 mg Documented by: Tizanidine HCl (Zanaflex) 4 mg PO QHS [facility] Last Admin: 06/08/19 22:06 Dose: 4 mg Documented by: Tobramycin Sulfate (Tobrex 0.3% Ophth Drops) 1 gtt OU QID [facility] Last Admin: 06/08/19 22:08 Dose: Not Given Documented by: Medical - PN: A/P - Time Spent With Patient Total time spent is greater than 50% in coordination of care (as documented) at patient's floor/unit and/or counseling patient: 25 - 35 minutes (Critical care time) (1) Pseudomonas urinary tract infection Status: Acute Assessment and plan: * Complicated Pseudomonas UTI with cystitis. Continue antibiotic coverage. No evidence of obstructive uropathy on imaging * Septic shock with endorgan dysfunction-secondary to above. Continue weaning vasopressors. * Hyponatremia-likely hypovolemic. Clinically improved with crystalloids. Sodium up from 05 22-1 3 6 * Diarrhea-resolved. Currently more formed stool * DM type II continue CC diet/sliding scale insulin * Anxiety disorder continue Cymbalta * Chronic back pain/DJD - joint disease hold NSAIDs until sepsis resolves. Continue hydrocodone at home dose * History of hypertension held metoprolol/Cardizem until shock resolves * Full Code Plan * Continue antibiotic coverage for Pseudomonas coverage * wean vasopressors * Monitor renal function * PT OT nutrition support * Case management coordinate SNF transfer on discharge Current Visit: Yes
[2019-06-09 10:35] LABS: Anisocytosis FEW (NONE SEEN); Band Neutrophils % 10 % (0-10); Lymphocytes % 9 % (15-49); Monocytes % (Manual) 12 % (1-12); Platelet Estimate NORMAL (NORMAL); RBC Morphology ABNORM (NORMAL); Segmented Neutrophils % 69 % (38-78)
[2019-06-09] MEDS: Mirabegron [Myrbetriq] 25 MG PO SCH (10:56)
[2019-06-09] MEDS: TOBRAMYCIN 0.3% OU SCH ×4 (10:58→20:45)
[2019-06-09] MEDS: prednisoLONE 1% OPHTH DROPS 1ML BOTTLE OU SCH ×4 (10:59→20:45)
[2019-06-09] MEDS: VANCOMYCIN ORAL SOL 1,000 MG/10 ML BOTTLE PO SCH ×4 (12:39→20:43)
[2019-06-09] MEDS ORDERED: 0.9 % SODIUM CHLORIDE 500 ML IV ONE (13:53)
--- NOTE | 2019-06-09 14:39 | Procedure Note ---
Procedures - Central Line Placement Left IJ Consent obtained: verbal consent, written consent Time out performed: Yes Patient placed on monitor/pulse ox: Yes MD prep: mask, sterile gown, sterile gloves, cap Central line prep: 2% Chlorhexidine scrub, large sterile drapes applied, proper hand hygiene Local anesthesia used: lidocaine 1% Ultrasound used for placement: Yes Central line lumen inserted: quad, 20 cm Post procedure: sutured in place, good blood return, all ports aspirated, flushed, capped, sterile dressing applied Post procedure x-ray: tip of catheter in good position, no pneumothorax seen, other (Catheter withdrawn 3 cm following chest imaging confirming catheter in right atrium) Patient tolerated procedure: well, no complications Complications: none
[2019-06-09] MEDS: ONDANSETRON 4 MG/2 ML VIAL IV PRN ×2 (14:51→20:44)
[2019-06-09] MEDS: NOREPINEPHRINE BITARTRATE 16 MG in 0.9 % SODIUM CHLORIDE 234 ML IV SCH (14:53)
--- NOTE | 2019-06-09 15:10 | XRay Report ---
CLINICAL INFORMATION:Status post left central venous catheter placement TECHNIQUE: AP portable semiupright chest x-ray COMPARISON: Previous chest x-ray dated 06/08/2019 FINDINGS:Left central venous catheter with its tip in the right atrium. This should be pulled back approximately 3 cm. There is no pneumothorax. No acute pulmonary parenchymal infiltrate. Heart size and vascularity are within normal limits. There is lucency below the right hemidiaphragm consistent with interposed bowel. IMPRESSION: 1. Left central venous catheter with its tip in the right atrium 2. No pneumothorax Interpreted and Authenticated by: Rob Michaud 06/09/19
[2019-06-09] MEDS: MAGNESIUM HYDROXIDE 30 ML ORAL.SUSP PO SCH (18:50)
[2019-06-09] MEDS: 0.9 % SODIUM CHLORIDE 1,000 ML IV SCH ×2 (19:27→20:31)
[2019-06-09] MEDS: tiZANidine 4 MG TABLET PO SCH (20:45)
[2019-06-09] MEDS: SENNOSIDES/DOCUSATE SODIUM 1 TAB TABLET PO SCH (20:45)
[2019-06-10] MEDS: NOREPINEPHRINE BITARTRATE 16 MG in 0.9 % SODIUM CHLORIDE 234 ML IV SCH (00:13)
[2019-06-10] MEDS: 0.9 % SODIUM CHLORIDE 250 ML IV SCH ×3 (02:39→17:32)
[2019-06-10] MEDS: ACETAMINOPHEN 650 MG/65 ML BOTTLE IV PRN ×2 (03:13→11:51)
[2019-06-10 07:17] LABS: Hematocrit 32.2 % (34.1-44.9); Hemoglobin 10.7 g/dL (11.2-15.7); Mean Cell Volume 90.4 fL (80.0-100.0); Mean Corpuscular HGB Conc 33.2 g/dL (31.0-36.0); Mean Platelet Volume 11.3 fL (7.4-10.4); Platelet Count 351 K/mcL (140-440); RBC 3.56 M/mcL (3.59-5.38)
[2019-06-10 07:25] LABS: ALT/SGPT 9 U/l (0-40); AST/SGOT 9 U/l (0-37); Albumin 2.4 gm/dL (3.2-5.2); Alkaline Phosphatase 91 U/L (39-117); Bilirubin,Direct < 0.2 mg/dL (0.0-0.3); Bilirubin,Total 0.2 mg/dL (0.0-1.0); Calcium 7.5 mg/dl (8.6-10.4); Carbon Dioxide 21 mmol/L (22-30); Chloride 102 mmol/L (96-108); Globulin 2.3 gm/dL (2.2-3.7); Glomerular Filtration Rate 82; Glucose 189 mg/dL (70-105); Lactate Dehydrogenase 233 U/L (94-250); Triglycerides 121 mg/dl (<150)
[2019-06-10 07:31] LABS: Blood Urea Nitrogen 19 mg/dl (8-23); Phosphorous 1.6 mg/dL (2.7-4.5)
[2019-06-10 08:49] LABS: Anisocytosis FEW (NONE SEEN); Band Neutrophils % 5 % (0-10); Lymphocytes % 4 % (15-49); Monocytes % (Manual) 7 % (1-12); Platelet Estimate NORMAL (NORMAL); RBC Morphology ABNORM (NORMAL); Segmented Neutrophils % 84 % (38-78)
[2019-06-10] MEDS: INSULIN LISPRO 1 UNIT/0.01 ML UNIT SQ SCH ×4 (09:00→20:33)
[2019-06-10] MEDS: VANCOMYCIN ORAL SOL 1,000 MG/10 ML BOTTLE PO SCH ×4 (09:31→20:35)
[2019-06-10] MEDS: 0.9 % SODIUM CHLORIDE 10 ML SYRINGE IV SCH ×3 (09:31→20:33)
[2019-06-10] MEDS: cefTRIAXone 2 GM in DEXTROSE 5% IN WATER 50 ML IV SCH (09:31)
[2019-06-10] MEDS: DILTIAZEM 120 MG CAP.XL.24H PO SCH (09:50)
[2019-06-10] MEDS: HYDROcodone/APAP 10/325MG TABLET PO SCH ×4 (09:50→20:34)
[2019-06-10] MEDS: DULoxetine 30 MG CAPSULE PO SCH (09:50)
[2019-06-10] MEDS: HEPARIN 5,000 UNIT/ML VIAL SQ SCH ×2 (09:51→20:33)
[2019-06-10] MEDS: METOPROLOL TARTRATE 25 MG TABLET PO SCH ×2 (09:51→20:32)
[2019-06-10] MEDS: MELOXICAM 7.5 MG TABLET PO SCH (09:51)
[2019-06-10] MEDS: MULTIVIT,THER IRON,CA,FA & MIN 1 TABLET PO SCH (09:51)
[2019-06-10] MEDS: MAGNESIUM OXIDE 400 MG TABLET PO SCH ×2 (09:51→20:32)
[2019-06-10] MEDS: sitaGLIPtin 100 MG TABLET PO SCH (09:51)
[2019-06-10] MEDS: THIAMINE 100 MG TABLET PO SCH (09:51)
[2019-06-10] MEDS: DOCUSATE SODIUM 100 MG CAPSULE PO SCH ×2 (09:51→20:33)
[2019-06-10] MEDS: SODIUM CHLORIDE 1 GM TABLET PO SCH ×3 (09:51→20:32)
[2019-06-10] MEDS: TAMSULOSIN 0.4 MG CAPSULE PO SCH (09:51)
[2019-06-10] MEDS: TOBRAMYCIN 0.3% OU SCH ×4 (09:52→20:34)
[2019-06-10] MEDS: prednisoLONE 1% OPHTH DROPS 1ML BOTTLE OU SCH ×4 (09:52→20:33)
[2019-06-10] MEDS: Mirabegron [Myrbetriq] 25 MG PO SCH (09:52)
--- NOTE | 2019-06-10 10:50 | Internal Med Progress Note ---
Medical - PN: Subj Patient information: Note initiated : 06/10/19 at 10:47 am Service Date, if different from initiated Date: [] Patient: Esme Soriano a 78 y/o F admitted on 06/08/19 for vomiting, diarrhea. Chief Complaint: [] Interval history: Ms. Soriano is a 78 year old F resident of [facility] who presents with progressive weakness following multiple episodes of diarrhea vomiting. Patient has had a progressive decline in her functional status and over the last 24 hours have became increasingly confused. She also sustained an unwitnessed fall at the [facility] due to her increasing weakness she however does not recollect the exact time and events leading up to fall. She was brought in the ER for evaluation. Initial work-up was consistent with low-grade fever, significant pyuria/elevated white count, tachycardia consistent with sepsis. Hospitalist service was consulted. At the time evaluation patient is minimal responsive although she is able to answer some of the questions and respond to review of systems. No family members are present. Most of the history is obtained from review of medical records and ER physician. Patient was started on antibiotic coverage. Blood cultures were unable to be drawn after multiple attempts. Prior urine cultures shows pansensitive Pseud omonas. Patient was started on Levaquin in the ER. Patient has a low-grade fever, endorses to chest pain following trauma from fall. Also endorses to chronic back pain but denies headache photophobia. Unable to provide a detailed history. Feels weak and lethargic. 06/09-patient hemodynamically improving currently on vasopressors down from 15 mics to 8 mics. Systolics improved from 60s and now achieving a map over 65. Improving urine output. Improving endorgan dysfunction. More alert lucid and respond to commands. Complaining of suprapubic tenderness however abdominal ultrasound no evidence of hydronephrosis. No family at bedside. Tachycardia down from 120s to low 100. T-max 101.5. Blood cultures pending. Remains critically ill. Continue treatment per guidelines 06/10-patient continues to improve. Down to 5 mics Levophed. Gradually improving urine output. Hemodynamic stabilizing. Tachycardia improving. Persistent fever 100.5 T-max. C. difficile positive. Currently on vancomycin 250 4 times daily. De-escalate Rocephin based on urine cultures. Abdominal ultrasound no evidence of obstructive uropathy. patient alert and respond to commands. Ongoing physical therapy. White count downtrending. Potassium 3.2 on replacement. Sodium improved to 136. Phosphorus down to 1.6 start replacement. Creatinine improved 0.7 - Constitutional Vitals: Vital Signs Temp Pulse Resp BP Pulse Ox 100.0 F H 85 24 H 138/66 99 06/10/19 08:14 06/09/19 07:04 06/10/19 08:14 06/10/19 08:01 06/10/19 08:14 Period Temp Pulse Resp BP Sys/Romero Pulse Ox Last 24 Hr 99.2 F-100.1 F 13-38 65-149/38-125 97-100 Intake and Output 06/09/19 06/10/19 06/10/19 21:59 05:59 13:59 Intake Total 1835 362 23 Output Total 154 63 Balance 1681 299 23 Weight 122 lb 6.4 oz Intake & Output: Intake & Output 06/09/19 06/10/19 06/10/19 21:59 05:59 13:59 Intake Total 1835 362 23 Output Total 154 63 Balance 1681 299 23 Weight 122 lb 6.4 oz Intake: IV 1835 362 23 Sodium Chloride 0.9% 1,000 ml @ 1000 50 mls/hr IV .Q20H [facility] Rx#: [id number] Sodium Chloride 0.9% 250 ml @ 250 250 20 mls/hr IV .[id number] [facility] Rx#: [id number] Sodium Chloride 0.9% 500 ml @ 500 Wide Open IV [facility] Rx#: [id number] Levophed 16 mg In Sodium 20 47 23 Chloride 0.9% 234 ml @ 10 MCG/ MIN 9.375 mls/hr IV Q24H [facility] Rx #:[id number] Output: Urine Catheter Amount 154 63 Other: Meal Dinner Percent of Meal Consumed 0% Feeding Ability Assist with Tray Set Up Urine Appearance Cloudy Sediment Mucous Threads Uretheral (Chakraborty) Cloudy Mucous Threads Urine Color Pale Pale Uretheral (Chakraborty) Bright Yellow General appearance: no acute distress Exam: Alert oriented Telemetry intermittent tachycardia Diminished breath sounds bases Abdomen tender Left IJ central line Medical - PN: Obj Da - Labs CBC & Chem 7: 06/10/19 04:06 06/10/19 04:06 Labs: Abnormal Lab Results 06/10/19 06/10/19 06/09/19 04:06 04:06 05:11 WBC RBC 3.56 L Hgb 10.7 L Hct 32.2 L RDW 15.0 H 15.8 H MPV 11.3 H 11.3 H Gran % Lymph % (Auto) Iron % (Auto) Gran # Lymph # (Auto) Iron # (Auto) Seg Neutrophils % 84 H Lymphocytes % 4 L 9 L RBC Morphology Abnorm A Abnorm A Anisocytosis Few A Few A Sodium Potassium 3.2 L Chloride Carbon Dioxide 21 L Anion Gap BUN Glucose 189 H Uric Acid Calcium 7.5 L Phosphorus 1.6 L Alkaline Phosphatase Lactate Dehydrogenase Total Protein 4.7 L Albumin 2.4 L Urine Protein Urine Ketones Urine Occult Blood Ur Leukocyte Esterase Urine RBC Urine WBC Urine Bacteria 06/09/19 06/08/19 06/08/19 05:00 14:05 12:48 WBC RBC Hgb Hct RDW MPV Gran % Lymph % (Auto) Iron % (Auto) Gran # Lymph # (Auto) Iron # (Auto) Seg Neutrophils % Lymphocytes % RBC Morphology Anisocytosis Sodium 131 L Potassium Chloride 87 L Carbon Dioxide 20 L Anion Gap 19.0 H 18.0 H BUN 26 H 33 H Glucose 203 H 234 H Uric Acid 8.2 H Calcium 7.1 L 8.5 L Phosphorus 2.1 L Alkaline Phosphatase 122 H Lactate Dehydrogenase 345 H Total Protein 5.1 L Albumin 2.6 L Urine Protein 30 A Urine Ketones 20 A Urine Occult Blood 0.03 A Ur Leukocyte Esterase 250 A Urine RBC 2 H Urine WBC > 182 H Urine Bacteria Few A 06/08/19 12:48 WBC 12.2 H RBC Hgb Hct RDW 15.2 H MPV 11.0 H Gran % 80.0 H Lymph % (Auto) 7.2 L Iron % (Auto) 12.3 H Gran # 9.72 H Lymph # (Auto) 0.88 L Iron # (Auto) 1.50 H Seg Neutrophils % Lymphocytes % RBC Morphology Anisocytosis Sodium Potassium Chloride Carbon Dioxide Anion Gap BUN Glucose Uric Acid Calcium Phosphorus Alkaline Phosphatase Lactate Dehydrogenase Total Protein Albumin Urine Protein Urine Ketones Urine Occult Blood Ur Leukocyte Esterase Urine RBC Urine WBC Urine Bacteria Meds: Medications Acetaminophen (Tylenol) 650 mg PO Q4-6HP PRN; Protocol PRN Reason: Per Pain Protocol/Fever > 101 Hydrocodone Bitart/Acetaminophen ([place] 10/325mg) 1 tab PO QID SNOW; Protocol Last Admin: 06/10/19 09:50 Dose: 1 tab Documented by: Bisacodyl (Dulcolax) 10 mg RI Q2-3DAYS PRN PRN Reason: Constipation Dextrose (Dextrose 50%) 0 ml IV UD PRN PRN Reason: Hypoglycemia Diagnostic Test (Pha) (Accu-Chek) 1 each FS ACHS [facility] Last Admin: 06/10/19 09:50 Dose: 1 each Documented by: Diltiazem HCl (Cardizem Cd) 120 mg PO DAILY [facility] Last Admin: 06/10/19 09:50 Dose: 120 mg Documented by: Docusate Sodium (Colace) 100 mg PO BID [facility] Last Admin: 06/10/19 09:51 Dose: Not Given Documented by: Duloxetine HCl (Cymbalta) 60 mg PO DAILY [facility] Last Admin: 06/10/19 09:50 Dose: 60 mg Documented by: Glucose (Insta-Glucose) 15 gm PO PRN PRN PRN Reason: Hypoglycemia Guaifenesin/Codeine Phosphate (Robitussin Ac) 10 ml PO Q4HP PRN PRN Reason: Cough Heparin Sodium (Porcine) (Heparin) 5,000 unit SQ Q12 [facility] Last Admin: 06/10/19 09:51 Dose: 5,000 unit Documented by: Sodium Chloride (Sodium Chloride 0.9%) 1,000 mls @ 50 mls/hr IV .Q20H [facility] Stop: 06/11/19 07:53 Last Admin: 06/09/19 20:31 Dose: 50 mls/hr Documented by: Acetaminophen (Ofirmev) 650 mg in 65 mls @ 130 mls/hr IV Q6HP PRN; Protocol PRN Reason: Per Pain Protocol/Fever > 101 Last Infusion: 06/10/19 03:45 Dose: Infused Documented by: Magnesium Sulfate (Magnesium Sulfate) 2 gm in 50 mls @ 50 mls/hr IV UD PRN PRN Reason: MG = or < 1.7 Ceftriaxone Sodium 2 gm/ (Dextrose) 50 mls @ 100 mls/hr IV Q24H [facility]; Protocol Last Admin: 06/10/19 09:31 Dose: 100 mls/hr Documented by: Norepinephrine Bitartrate 16 (mg/ Sodium Chloride) 250 mls @ 9.375 mls/hr IV Q24H [facility]; Protocol Last Titration: 06/10/19 06:00 Dose: 5.33 mcg/min, 5 mls/hr Documented by: Sodium Chloride (Sodium Chloride 0.9%) 250 mls @ 20 mls/hr IV .[id number] [facility] Last Admin: 06/10/19 03:55 Dose: 20 mls/hr Documented by: Insulin Human Lispro (Humalog) 0 unit SQ ACHS [facility]; Protocol Last Admin: 06/09/19 21:27 Dose: Not Given Documented by: Iron Carb/Multivit/Immunochemist/Folic Acid (Multivitamin W/Minerals) 1 tab PO DAILY [facility] Last Admin: 06/10/19 09:51 Dose: 1 tab Documented by: Magnesium Hydroxide (Milk Of Magnesia) 30 ml PO ONCE [facility] Last Admin: 06/09/19 18:50 Dose: Not Given Documented by: Magnesium Oxide (Magnesium Oxide) 400 mg PO BID [facility] Last Admin: 06/10/19 09:51 Dose: 400 mg Documented by: Melatonin (Melatonin 3mg Tablet) 3 mg PO HSP PRN PRN Reason: Insomnia Last Admin: 06/09/19 20:45 Dose: 3 mg Documented by: Meloxicam (Mobic) 7.5 mg PO QDAY [facility]; Protocol Last Admin: 06/10/19 09:51 Dose: 7.5 mg Documented by: Metoprolol Tartrate (Lopressor) 25 mg PO BID [facility] Last Admin: 06/10/19 09:51 Dose: 25 mg Documented by: Ondansetron HCl (Zofran Odt) 4 mg SL Q4-6HP PRN; Protocol PRN Reason: Nausea And Vomiting Ondansetron HCl (Zofran) 4 mg IV Q4-6HP PRN; Protocol PRN Reason: Nausea And Vomiting Last Admin: 06/09/19 20:44 Dose: 4 mg Documented by: Mirabegron [ (Myrbetriq] 25 Mg) 1 dose PO QDAY [facility] Last Admin: 06/10/19 09:52 Dose: Not Given Documented by: Phenazopyridine HCl (Pyridium) 200 mg PO TIDP PRN PRN Reason: Dysuria Polyethylene Glycol (Miralax) 17 gm PO DAILYP PRN PRN Reason: Constipation Potassium Chloride (Klor-Con) 40 meq PO DAILYP PRN PRN Reason: K+ < 3.5 Last Admin: 06/10/19 09:31 Dose: 40 meq Documented by: Prednisolone Acetate (Pred Forte Ophth Drops) 1 gtt OU QID [facility] Last Admin: 06/10/19 09:52 Dose: Not Given Documented by: Senna/Docusate Sodium (Senna Plus Tablet) 1 tab PO HS [facility] Last Admin: 06/09/19 20:45 Dose: Not Given Documented by: Sitagliptin Phosphate (Januvia) 100 mg PO DAILY [facility] Last Admin: 06/10/19 09:51 Dose: 100 mg Documented by: Sodium Chloride (Saline Flush) 10 ml IV Q8 [facility] Last Admin: 06/10/19 09:31 Dose: 10 ml Documented by: Sodium Chloride (Sodium Chloride) 1 gm PO TID [facility] Last Admin: 06/10/19 09:51 Dose: 1 gm Documented by: Tamsulosin HCl (Flomax) 0.4 mg PO QDAY [facility] Last Admin: 06/10/19 09:51 Dose: 0.4 mg Documented by: Thiamine HCl (Vitamin B1) 100 mg PO DAILY [facility] Last Admin: 06/10/19 09:51 Dose: 100 mg Documented by: Tizanidine HCl (Zanaflex) 4 mg PO QHS [facility] Last Admin: 06/09/19 20:45 Dose: 4 mg Documented by: Tobramycin Sulfate (Tobrex 0.3% Ophth Drops) 1 gtt OU QID [facility] Last Admin: 06/10/19 09:52 Dose: Not Given Documented by: Vancomycin HCl (Vancomycin Oral Irina) 250 mg PO QID [facility]; Protocol Last Admin: 06/10/19 09:31 Dose: 250 mg Documented by: Medical - PN: A/P - Time Spent With Patient Total time spent is greater than 50% in coordination of care (as documented) at patient's floor/unit and/or counseling patient: Greater than 35 minutes (Critical care time) (1) Pseudomonas urinary tract infection Status: Acute Assessment and plan: * Septic shock with endorgan dysfunction-secondary to above. Wean vasopressors as tolerated. Hemodynamic stabilizing. Improving endorgan dysfunction. * Complicated Pseudomonas/E. coli UTI with cystitis. Continue Rocephin. Repeat UA in 24 hours. * C. difficile enterocolitis continue oral vancomycin. Improved diarrhea * Hyponatremia-likely hypovolemic. Normalized sodium at 136 * Low phosphorus and potassium on replacement * Diarrhea-resolved. Currently more formed stool * DM type II continue CC diet/sliding scale insulin * Anxiety disorder continue Cymbalta * Chronic back pain/DJD - joint disease hold NSAIDs until sepsis resolves. Continue hydrocodone at home dose * History of hypertension held metoprolol/Cardizem until shock resolves * Full Code Plan * Continue antibiotic coverage based on culture sensitivities * wean vasopressors as tolerated * Prior medical condition management as above * Replace potassium and phosphorus * Oral vancomycin * PT OT nutrition support * Case management coordinate SNF transfer on discharge Current Visit: Yes
[2019-06-10] MEDS: PHENAZOPYRIDINE 200 MG TABLET PO PRN (11:00)
[2019-06-10 13:15] LABS: Appearance,Urine CLEAR; Bacteria,Urine 0 /hpf (0); Bilirubin,Urine NEG (NEG); Color,Urine YELLOW; Culture Indicated,Urine YES; Glucose,Urine (UA) NEGATIVE (NEG); Ketones,Urine 20 mg/dL (NEG); Leukocyte Esterase,Urine 250 /uL (NEG); Mucus,Urine FEW /hpf (0); Nitrate,Urine NEG (NEG); Protein,Urine NEG (NEG); Specific Gravity,Urine 1.026 (1.000-1.035); Urine Blood NEG mg/dL (<0.03); Urine Budding Yeast MOD /hpf (0); Urine RBC 4 /hpf (0-1); Urine Squamous Epithelial Cell 1 /hpf (0-4); Urine Transitional Epi Cells 1 /hpf (0-2); Urine WBC 174 /hpf (0-4); Urobilinogen,Urine NEG (NEG)
[2019-06-10] MEDS: 0.9 % SODIUM CHLORIDE 1,000 ML IV SCH (17:31)
[2019-06-10] MEDS: MAGNESIUM HYDROXIDE 30 ML ORAL.SUSP PO SCH (19:27)
[2019-06-10] MEDS: NEUTRA PHOS 1 PACKET PO SCH (20:32)
[2019-06-10] MEDS: tiZANidine 4 MG TABLET PO SCH (20:32)
[2019-06-10] MEDS: SENNOSIDES/DOCUSATE SODIUM 1 TAB TABLET PO SCH (20:34)
[2019-06-11] MEDS: NOREPINEPHRINE BITARTRATE 16 MG in 0.9 % SODIUM CHLORIDE 234 ML IV SCH (03:17)
[2019-06-11] MEDS: 0.9 % SODIUM CHLORIDE 250 ML IV SCH (03:17)
[2019-06-11] MEDS: PHENAZOPYRIDINE 200 MG TABLET PO PRN (04:03)
[2019-06-11] MEDS: 0.9 % SODIUM CHLORIDE 10 ML SYRINGE IV SCH ×3 (05:47→21:03)
[2019-06-11] MEDS ORDERED: MAGNESIUM CITRATE 300 ML ORAL.SOL PO ONE (08:01)
[2019-06-11 08:30] LABS: Mean Corpuscular HGB Conc 32.3 g/dL (31.0-36.0); Platelet Count 273 K/mcL (140-440); RBC 3.37 M/mcL (3.59-5.38); Red Cell Distribution Width 15.3 % (11.5-14.5); WBC 12.5 K/mcL (4.50-11.00)
[2019-06-11 08:35] LABS: Bilirubin,Direct < 0.2 mg/dL (0.0-0.3); Chloride 101 mmol/L (96-108)
[2019-06-11 08:36] LABS: ALT/SGPT 12 U/l (0-40); AST/SGOT 14 U/l (0-37); Albumin 2.4 gm/dL (3.2-5.2); Alkaline Phosphatase 105 U/L (39-117); Bilirubin,Total 0.3 mg/dL (0.0-1.0); Blood Urea Nitrogen 15 mg/dl (8-23); Calcium 7.6 mg/dl (8.6-10.4); Carbon Dioxide 18 mmol/L (22-30); Globulin 2.4 gm/dL (2.2-3.7); Glomerular Filtration Rate 86; Glucose 156 mg/dL (70-105); Lactate Dehydrogenase 313 U/L (94-250); Phosphorous 1.5 mg/dL (2.7-4.5); Triglycerides 127 mg/dl (<150)
[2019-06-11] MEDS: INSULIN LISPRO 1 UNIT/0.01 ML UNIT SQ SCH ×4 (09:52→20:59)
[2019-06-11] MEDS: sitaGLIPtin 100 MG TABLET PO SCH (09:53)
[2019-06-11] MEDS: SODIUM CHLORIDE 1 GM TABLET PO SCH ×3 (09:53→21:02)
[2019-06-11] MEDS: DULoxetine 30 MG CAPSULE PO SCH (09:53)
[2019-06-11] MEDS: MULTIVIT,THER IRON,CA,FA & MIN 1 TABLET PO SCH (09:53)
[2019-06-11] MEDS: MAGNESIUM OXIDE 400 MG TABLET PO SCH ×2 (09:53→21:01)
[2019-06-11] MEDS: TAMSULOSIN 0.4 MG CAPSULE PO SCH (09:53)
[2019-06-11] MEDS: DILTIAZEM 120 MG CAP.XL.24H PO SCH (09:53)
[2019-06-11] MEDS: NEUTRA PHOS 1 PACKET PO SCH ×2 (09:53→21:01)
[2019-06-11] MEDS: MELOXICAM 7.5 MG TABLET PO SCH (09:53)
[2019-06-11] MEDS: METOPROLOL TARTRATE 25 MG TABLET PO SCH ×2 (09:53→21:04)
[2019-06-11] MEDS: DOCUSATE SODIUM 100 MG CAPSULE PO SCH ×2 (09:53→21:02)
[2019-06-11] MEDS: prednisoLONE 1% OPHTH DROPS 1ML BOTTLE OU SCH ×4 (09:54→21:02)
[2019-06-11] MEDS: HYDROcodone/APAP 10/325MG TABLET PO SCH ×4 (09:54→21:01)
[2019-06-11] MEDS: HEPARIN 5,000 UNIT/ML VIAL SQ SCH ×2 (09:54→20:58)
[2019-06-11] MEDS: Mirabegron [Myrbetriq] 25 MG PO SCH (09:54)
[2019-06-11] MEDS: cefTRIAXone 2 GM in DEXTROSE 5% IN WATER 50 ML IV SCH (09:55)
[2019-06-11] MEDS: VANCOMYCIN ORAL SOL 1,000 MG/10 ML BOTTLE PO SCH ×4 (09:56→20:52)
[2019-06-11] MEDS: THIAMINE 100 MG TABLET PO SCH (09:56)
[2019-06-11] MEDS: TOBRAMYCIN 0.3% OU SCH ×4 (09:56→21:03)
--- NOTE | 2019-06-11 09:56 | Internal Med Progress Note ---
Medical - PN: Subj Patient information: Note initiated : 06/11/19 at 9:52 am Service Date, if different from initiated Date: [] Patient: Esme Soriano a 78 y/o F admitted on 06/08/19 for vomiting, diarrhea. Chief Complaint: [] Interval history: Ms. Soriano is a 78 year old F resident of [facility] who presents with progressive weakness following multiple episodes of diarrhea vomiting. Patient has had a progressive decline in her functional status and over the last 24 hours have became increasingly confused. She also sustained an unwitnessed fall at the [facility] due to her increasing weakness she however does not recollect the exact time and events leading up to fall. She was brought in the ER for evaluation. Initial work-up was consistent with low-grade fever, significant pyuria/elevated white count, tachycardia consistent with sepsis. Hospitalist service was consulted. At the time evaluation patient is minimal responsive although she is able to answer some of the questions and respond to review of systems. No family members are present. Most of the history is obtained from review of medical records and ER physician. Patient was started on antibiotic coverage. Blood cultures were unable to be drawn after multiple attempts. Prior urine cultures shows pansensitive Pseudo monas. Patient was started on Levaquin in the ER. Patient has a low-grade fever, endorses to chest pain following trauma from fall. Also endorses to chronic back pain but denies headache photophobia. Unable to provide a detailed history. Feels weak and lethargic. 06/09-patient hemodynamically improving currently on vasopressors down from 15 mics to 8 mics. Systolics improved from 60s and now achieving a map over 65. Improving urine output. Improving endorgan dysfunction. More alert lucid and respond to commands. Complaining of suprapubic tenderness however abdominal ultrasound no evidence of hydronephrosis. No family at bedside. Tachycardia down from 120s to low 100. T-max 101.5. Blood cultures pending. Remains critically ill. Continue treatment per guidelines 06/10-patient continues to improve. Down to 5 mics Levophed. Gradually improving urine output. Hemodynamic stabilizing. Tachycardia improving. Persistent fever 100.5 T-max. C. difficile positive. Currently on vancomycin 250 4 times daily. De-escalate Rocephin based on urine cultures. Abdominal ultrasound no evidence of obstructive uropathy. patient alert and respond to commands. Ongoing physical therapy. White count downtrending. Potassium 3.2 on replacement. Sodium improved to 136. Phosphorus down to 1.6 start replacement. Creatinine improved 0.7 06/11-patient doing a lot better. Off vasopressors since 1 AM. No overnight fever chills. Complains of abdominal discomfort and severe constipation. Currently on antibiotics for UTI and C. difficile. Start mag citrate. White count 12.5, potassium improved to 4.3. Phosphorus down to 1.5, repeat UA persistent pyuria. No overnight fever chills. More alert lucid. No family at bedside. Transfer to medical floor. - Constitutional Vitals: Vital Signs Temp Pulse Resp BP Pulse Ox 99.9 F H 85 21 132/86 94 06/11/19 09:03 06/09/19 07:04 06/11/19 09:03 06/11/19 09:03 06/11/19 09:03 Period Temp Pulse Resp BP Sys/Romero Pulse Ox Last 24 Hr 98.8 F-100.7 F 13-27 73-142/42-126 90-100 Intake and Output 06/10/19 06/11/19 06/11/19 21:59 05:59 13:59 Intake Total 220 360 Output Total 520 165 Balance -300 195 Weight 129 lb 14.4 oz Intake & Output: Intake & Output 06/10/19 06/11/19 06/11/19 21:59 05:59 13:59 Intake Total 220 360 Output Total 520 165 Balance -300 195 Weight 129 lb 14.4 oz Intake: IV 220 Sodium Chloride 0.9% 1,000 ml @ 220 50 mls/hr IV .Q20H [facility] Rx#: [id number] Oral 360 Output: Urine Catheter Amount 520 165 Other: Meal Nourishment/Supplement Percent of Meal Consumed 50% Feeding Ability Assist with Tray Set Up Nourishment/Supplement name yogurt Urine Appearance Clear Clear Uretheral (Chakraborty) Clear Clear Urine Color [place] Uretheral (Chakraborty) [place] General appearance: no acute distress Exam: Alert oriented Nonlabored breathing Chakraborty's catheter leaking around insertion site. No anxiety No telemetry events Medical - PN: Obj Da - Labs CBC & Chem 7: 06/11/19 05:00 06/11/19 05:00 Labs: Abnormal Lab Results 06/11/19 06/11/19 06/10/19 05:00 05:00 10:03 WBC 12.5 H RBC 3.37 L Hgb 10.0 L Hct 31.0 L RDW 15.3 H MPV 12.0 H Gran % Lymph % (Auto) [place] % (Auto) Gran # Lymph # (Auto) [place] # (Auto) Seg Neutrophils % Lymphocytes % RBC Morphology Anisocytosis Sodium Potassium Chloride Carbon Dioxide 18 L Anion Gap BUN Glucose 156 H Uric Acid Calcium 7.6 L Phosphorus 1.5 L Alkaline Phosphatase Lactate Dehydrogenase 313 H Total Protein 4.8 L Albumin 2.4 L Urine Protein Urine Ketones 20 A Urine Occult Blood Ur Leukocyte Esterase 250 A Urine RBC 4 H Urine WBC 174 H Urine Bacteria Urine Yeast (Budding) Mod A 06/10/19 06/10/19 06/09/19 04:06 04:06 05:11 WBC RBC 3.56 L Hgb 10.7 L Hct 32.2 L RDW 15.0 H 15.8 H MPV 11.3 H 11.3 H Gran % Lymph % (Auto) [place] % (Auto) Gran # Lymph # (Auto) [place] # (Auto) Seg Neutrophils % 84 H Lymphocytes % 4 L 9 L RBC Morphology Abnorm A Abnorm A Anisocytosis Few A Few A Sodium Potassium 3.2 L Chloride Carbon Dioxide 21 L Anion Gap BUN Glucose 189 H Uric Acid Calcium 7.5 L Phosphorus 1.6 L Alkaline Phosphatase Lactate Dehydrogenase Total Protein 4.7 L Albumin 2.4 L Urine Protein Urine Ketones Urine Occult Blood Ur Leukocyte Esterase Urine RBC Urine WBC Urine Bacteria Urine Yeast (Budding) 06/09/19 06/08/19 06/08/19 05:00 14:05 12:48 WBC RBC Hgb Hct RDW MPV Gran % Lymph % (Auto) [place] % (Auto) Gran # Lymph # (Auto) [place] # (Auto) Seg Neutrophils % Lymphocytes % RBC Morphology Anisocytosis Sodium 131 L Potassium Chloride 87 L Carbon Dioxide 20 L Anion Gap 19.0 H 18.0 H BUN 26 H 33 H Glucose 203 H 234 H Uric Acid 8.2 H Calcium 7.1 L 8.5 L Phosphorus 2.1 L Alkaline Phosphatase 122 H Lactate Dehydrogenase 345 H Total Protein 5.1 L Albumin 2.6 L Urine Protein 30 A Urine Ketones 20 A Urine Occult Blood 0.03 A Ur Leukocyte Esterase 250 A Urine RBC 2 H Urine WBC > 182 H Urine Bacteria Few A Urine Yeast (Budding) 06/08/19 12:48 WBC 12.2 H RBC Hgb Hct RDW 15.2 H MPV 11.0 H Gran % 80.0 H Lymph % (Auto) 7.2 L [place] % (Auto) 12.3 H Gran # 9.72 H Lymph # (Auto) 0.88 L [place] # (Auto) 1.50 H Seg Neutrophils % Lymphocytes % RBC Morphology Anisocytosis Sodium Potassium Chloride Carbon Dioxide Anion Gap BUN Glucose Uric Acid Calcium Phosphorus Alkaline Phosphatase Lactate Dehydrogenase Total Protein Albumin Urine Protein Urine Ketones Urine Occult Blood Ur Leukocyte Esterase Urine RBC Urine WBC Urine Bacteria Urine Yeast (Budding) Meds: Medications Acetaminophen (Tylenol) 650 mg PO Q4-6HP PRN; Protocol PRN Reason: Per Pain Protocol/Fever > 101 Last Admin: 06/11/19 05:47 Dose: 650 mg Documented by: Hydrocodone Bitart/Acetaminophen ([place] 10/325mg) 1 tab PO QID [facility]; Protocol Last Admin: 06/10/19 20:34 Dose: 1 tab Documented by: Bisacodyl (Dulcolax) 10 mg PA Q2-3DAYS PRN PRN Reason: Constipation Dextrose (Dextrose 50%) 0 ml IV UD PRN PRN Reason: Hypoglycemia Diagnostic Test (Pha) (Accu-Chek) 1 each FS ACHS [facility] Last Admin: 06/10/19 20:33 Dose: 1 each Documented by: Diltiazem HCl (Cardizem Cd) 120 mg PO DAILY [facility] Last Admin: 06/10/19 09:50 Dose: 120 mg Documented by: Docusate Sodium (Colace) 100 mg PO BID [facility] Last Admin: 06/10/19 20:33 Dose: Not Given Documented by: Duloxetine HCl (Cymbalta) 60 mg PO DAILY [facility] Last Admin: 06/10/19 09:50 Dose: 60 mg Documented by: Glucose (Insta-Glucose) 15 gm PO PRN PRN PRN Reason: Hypoglycemia Guaifenesin/Codeine Phosphate (Robitussin Ac) 10 ml PO Q4HP PRN PRN Reason: Cough Heparin Sodium (Porcine) (Heparin) 5,000 unit SQ Q12 [facility] Last Admin: 06/10/19 20:33 Dose: 5,000 unit Documented by: Acetaminophen (Ofirmev) 650 mg in 65 mls @ 130 mls/hr IV Q6HP PRN; Protocol PRN Reason: Per Pain Protocol/Fever > 101 Last Infusion: 06/10/19 12:43 Dose: Infused Documented by: Magnesium Sulfate (Magnesium Sulfate) 2 gm in 50 mls @ 50 mls/hr IV UD PRN PRN Reason: MG = or < 1.7 Ceftriaxone Sodium 2 gm/ (Dextrose) 50 mls @ 100 mls/hr IV Q24H [facility]; Protocol Last Admin: 06/10/19 09:31 Dose: 100 mls/hr Documented by: Norepinephrine Bitartrate 16 (mg/ Sodium Chloride) 250 mls @ 9.375 mls/hr IV Q24H [facility]; Protocol Last Admin: 06/11/19 03:17 Dose: Not Given Documented by: Sodium Chloride (Sodium Chloride 0.9%) 250 mls @ 20 mls/hr IV .[id number] [facility] Last Admin: 06/11/19 03:17 Dose: Not Given Documented by: Insulin Human Lispro (Humalog) 0 unit SQ ACHS [facility]; Protocol Last Admin: 06/10/19 20:33 Dose: Not Given Documented by: Iron Carb/Multivit/[place]/Folic Acid (Multivitamin W/Minerals) 1 tab PO DAILY [facility] Last Admin: 06/10/19 09:51 Dose: 1 tab Documented by: Magnesium Hydroxide (Milk Of Magnesia) 30 ml PO ONCE [facility] Last Admin: 06/10/19 19:27 Dose: Not Given Documented by: Magnesium Oxide (Magnesium Oxide) 400 mg PO BID [facility] Last Admin: 06/10/19 20:32 Dose: 400 mg Documented by: Melatonin (Melatonin 3mg Tablet) 3 mg PO HSP PRN PRN Reason: Insomnia Last Admin: 06/09/19 20:45 Dose: 3 mg Documented by: Meloxicam (Mobic) 7.5 mg PO QDAY [facility]; Protocol Last Admin: 06/10/19 09:51 Dose: 7.5 mg Documented by: Metoprolol Tartrate (Lopressor) 25 mg PO BID [facility] Last Admin: 06/10/19 20:32 Dose: 25 mg Documented by: Ondansetron HCl (Zofran Odt) 4 mg SL Q4-6HP PRN; Protocol PRN Reason: Nausea And Vomiting Last Admin: 06/10/19 16:38 Dose: 4 mg Documented by: Ondansetron HCl (Zofran) 4 mg IV Q4-6HP PRN; Protocol PRN Reason: Nausea And Vomiting Last Admin: 06/09/19 20:44 Dose: 4 mg Documented by: Mirabegron [ (Myrbetriq] 25 Mg) 1 dose PO QDAY [facility] Last Admin: 06/10/19 09:52 Dose: Not Given Documented by: Phenazopyridine HCl (Pyridium) 200 mg PO TIDP PRN PRN Reason: Dysuria Last Admin: 06/11/19 04:03 Dose: 200 mg Documented by: Polyethylene Glycol (Miralax) 17 gm PO DAILYP PRN PRN Reason: Constipation Potassium Chloride (Klor-Con) 40 meq PO DAILYP PRN PRN Reason: K+ < 3.5 Last Admin: 06/10/19 09:31 Dose: 40 meq Documented by: Potassium/Phosphorus/Sodium (Neutra Phos) 2 packet PO BID [facility] Last Admin: 06/10/19 20:32 Dose: 2 packet Documented by: Prednisolone Acetate (Pred Forte Ophth Drops) 1 gtt OU QID [facility] Last Admin: 06/10/19 20:33 Dose: Not Given Documented by: Senna/Docusate Sodium (Senna Plus Tablet) 1 tab PO [facility] Last Admin: 06/10/19 20:34 Dose: Not Given Documented by: Sitagliptin Phosphate (Januvia) 100 mg PO DAILY [facility] Last Admin: 06/10/19 09:51 Dose: 100 mg Documented by: Sodium Chloride (Saline Flush) 10 ml IV Q8 [facility] Last Admin: 06/11/19 05:47 Dose: 10 ml Documented by: Sodium Chloride (Sodium Chloride) 1 gm PO TID [facility] Last Admin: 06/10/19 20:32 Dose: 1 gm Documented by: Tamsulosin HCl (Flomax) 0.4 mg PO QDAY [facility] Last Admin: 06/10/19 09:51 Dose: 0.4 mg Documented by: Thiamine HCl (Vitamin B1) 100 mg PO DAILY [facility] Last Admin: 06/10/19 09:51 Dose: 100 mg Documented by: Tizanidine HCl (Zanaflex) 4 mg PO QHS [facility] Last Admin: 06/10/19 20:32 Dose: 4 mg Documented by: Tobramycin Sulfate (Tobrex 0.3% Ophth Drops) 1 gtt OU QID [facility] Last Admin: 06/10/19 20:34 Dose: Not Given Documented by: Vancomycin HCl (Vancomycin Oral Irina) 250 mg PO QID [facility]; Protocol Last Admin: 06/10/19 20:35 Dose: 250 mg Documented by: Medical - PN: A/P - Time Spent With Patient Total time spent is greater than 50% in coordination of care (as documented) at patient's floor/unit and/or counseling patient: 25 - 35 minutes (1) Pseudomonas urinary tract infection Status: Acute Assessment and plan: * Complicated Pseudomonas/E. coli UTI with cystitis. Continue Rocephin. Repeat UA persistent pyuria * C. difficile enterocolitis clinical improvement noted on oral vancomycin. * Septic shock with endorgan dysfunction-secondary to E. coli UTI/C. difficile e nterocolitis. Clinically resolved now off pressors * Low phosphorus and potassium on replacement * Hyponatremia-likely hypovolemic. Resolved * Constipation start bowel protocol * DM type II continue CC diet/sliding scale insulin * Anxiety disorder continue Cymbalta * Chronic back pain/DJD -stable on home dose opioids * History of hypertension held metoprolol/Cardizem until shock resolves * Full Code Plan * Continue antibiotics * Transition to medical floor * Continue pre-existing medical condition management as above * Replace electrolytes as indicated * PT OT nutrition support * Case management coordinate SNF transfer on discharge Current Visit: Yes
[2019-06-11] MEDS ORDERED: ONDANSETRON 4 MG/2 ML VIAL IV PRN (10:24)
[2019-06-11] MEDS ORDERED: POTASSIUM CHLORIDE 20 MEQ PACKET PO PRN (10:24)
[2019-06-11] MEDS ORDERED: ACETAMINOPHEN 325 MG TABLET PO PRN (10:24)
[2019-06-11] MEDS ORDERED: DEXTROSE 31 GM ORAL.SUSP PO PRN (10:24)
[2019-06-11] MEDS ORDERED: PHENAZOPYRIDINE 200 MG TABLET PO PRN (10:24)
[2019-06-11] MEDS ORDERED: guaiFENesin/CODEINE 10 ML UDC PO PRN (10:24)
[2019-06-11] MEDS ORDERED: ONDANSETRON 4 MG ODT TABLET SL PRN (10:24)
[2019-06-11] MEDS ORDERED: MELATONIN 3 MG TABLET PO PRN (10:24)
[2019-06-11] MEDS ORDERED: DEXTROSE 50% 50 ML VIAL IV PRN (10:24)
[2019-06-11] MEDS ORDERED: MAGNESIUM SULFATE 2 GM/50 ML BAG IV PRN (10:24)
[2019-06-11] MEDS ORDERED: POLYETHYLENE GLYCOL 3350 17 GM PACKET PO PRN (10:24)
[2019-06-11] MEDS ORDERED: 0.9 % SODIUM CHLORIDE 250 ML IV SCH (10:24)
[2019-06-11] MEDS ORDERED: MAGNESIUM HYDROXIDE 30 ML ORAL.SUSP PO SCH (10:24)
[2019-06-11] MEDS ORDERED: BISACODYL 10 MG SUPP.RECT PR PRN (10:24)
[2019-06-11 10:35] LABS: Anisocytosis FEW (NONE SEEN); Band Neutrophils % 2 % (0-10); Lymphocytes % 1 % (15-49); Monocytes % (Manual) 3 % (1-12); Platelet Estimate NORMAL (NORMAL); RBC Morphology ABNORM (NORMAL); Segmented Neutrophils % 94 % (38-78)
[2019-06-11] MEDS: SENNOSIDES/DOCUSATE SODIUM 1 TAB TABLET PO SCH (21:02)
[2019-06-11] MEDS: tiZANidine 4 MG TABLET PO SCH (21:02)
[2019-06-12] MEDS: ACETAMINOPHEN 650 MG/65 ML BOTTLE IV PRN (01:25)
[2019-06-12] MEDS ORDERED: MAGIC MOUTHWASH SSP PRN (08:23)
[2019-06-12] MEDS: 0.9 % SODIUM CHLORIDE 10 ML SYRINGE IV SCH ×3 (08:24→22:07)
[2019-06-12 08:25] LABS: Hematocrit 30.5 % (34.1-44.9); Hemoglobin 9.9 g/dL (11.2-15.7); Mean Cell Volume 92.4 fL (80.0-100.0); Mean Corpuscular HGB Conc 32.5 g/dL (31.0-36.0); Mean Platelet Volume 11.6 fL (7.4-10.4); Platelet Count 274 K/mcL (140-440); Red Cell Distribution Width 16.2 % (11.5-14.5); WBC 15.3 K/mcL (4.50-11.00)
[2019-06-12] MEDS: prednisoLONE 1% OPHTH DROPS 1ML BOTTLE OU SCH ×4 (08:25→21:47)
[2019-06-12] MEDS: TOBRAMYCIN 0.3% OU SCH ×4 (08:26→21:47)
[2019-06-12 08:53] LABS: ALT/SGPT 17 U/l (0-40); AST/SGOT 18 U/l (0-37); Albumin 2.4 gm/dL (3.2-5.2); Alkaline Phosphatase 118 U/L (39-117); Bilirubin,Direct < 0.2 mg/dL (0.0-0.3); Bilirubin,Total 0.2 mg/dL (0.0-1.0); Blood Urea Nitrogen 15 mg/dl (8-23); Calcium 8.2 mg/dl (8.6-10.4); Carbon Dioxide 18 mmol/L (22-30); Chloride 106 mmol/L (96-108); Globulin 2.5 gm/dL (2.2-3.7); Glomerular Filtration Rate 82; Glucose 200 mg/dL (70-105); Lactate Dehydrogenase 358 U/L (94-250); Triglycerides 133 mg/dl (<150); Uric Acid 5.9 mg/dL (2.5-8.0)
[2019-06-12] MEDS: cefTRIAXone 2 GM in DEXTROSE 5% IN WATER 50 ML IV SCH (08:59)
[2019-06-12] MEDS: Mirabegron [Myrbetriq] 25 MG PO SCH (08:59)
[2019-06-12] MEDS ORDERED: DILTIAZEM 120 MG CAP.XL.24H PO SCH (09:00)
[2019-06-12] MEDS: VANCOMYCIN ORAL SOL 1,000 MG/10 ML BOTTLE PO SCH ×4 (09:00→21:48)
[2019-06-12 09:07] LABS: Phosphorous 1.4 mg/dL (2.7-4.5)
[2019-06-12] MEDS: NEUTRA PHOS 1 PACKET PO SCH ×2 (09:54→21:43)
[2019-06-12] MEDS: DULoxetine 30 MG CAPSULE PO SCH (09:55)
[2019-06-12] MEDS: THIAMINE 100 MG TABLET PO SCH (09:55)
[2019-06-12] MEDS: MELOXICAM 7.5 MG TABLET PO SCH (09:55)
[2019-06-12] MEDS: HEPARIN 5,000 UNIT/ML VIAL SQ SCH (09:55)
[2019-06-12] MEDS: MAGNESIUM OXIDE 400 MG TABLET PO SCH ×2 (09:56→21:42)
[2019-06-12] MEDS: SODIUM CHLORIDE 1 GM TABLET PO SCH ×3 (09:56→21:42)
[2019-06-12] MEDS: sitaGLIPtin 100 MG TABLET PO SCH (09:56)
[2019-06-12] MEDS: METOPROLOL TARTRATE 25 MG TABLET PO SCH ×2 (09:56→21:46)
[2019-06-12] MEDS: TAMSULOSIN 0.4 MG CAPSULE PO SCH (09:57)
[2019-06-12] MEDS: DOCUSATE SODIUM 100 MG CAPSULE PO SCH ×2 (09:57→21:42)
[2019-06-12] MEDS: MULTIVIT,THER IRON,CA,FA & MIN 1 TABLET PO SCH (09:57)
[2019-06-12] MEDS: HYDROcodone/APAP 10/325MG TABLET PO SCH ×4 (09:57→21:46)
[2019-06-12] MEDS ORDERED: ACETAMINOPHEN 325 MG TABLET PO PRN (09:58)
[2019-06-12] MEDS ORDERED: hydrOXYzine 25 MG TABLET PO PRN (09:58)
[2019-06-12] MEDS ORDERED: ONDANSETRON 4 MG ODT TABLET PO PRN (09:58)
--- NOTE | 2019-06-12 10:01 | Internal Med Progress Note ---
Medical - PN: Subj Patient information: Note initiated : 06/12/19 at 9:57 am Service Date, if different from initiated Date: [] Patient: Esme Soriano a 78 y/o F admitted on 06/08/19 for vomiting, diarrhea. Chief Complaint: [] Interval history: Ms. Soriano is a 78 year old F resident of [facility] who presents with progressive weakness following multiple episodes of diarrhea vomiting. Patient has had a progressive decline in her functional status and over the last 24 hours have became increasingly confused. She also sustained an unwitnessed fall at the [place] [facility] due to her increasing weakness she however does not recollect the exact time and events leading up to fall. She was brought in the ER for evaluation. Initial work-up was consistent with low-grade fever, significant pyuria/elevated white count, tachycardia consistent with sepsis. Hospitalist service was consulted. At the time evaluation patient is minimal responsive although she is able to answer some of the questions and respond to review of systems. No family members are present. Most of the history is obtained from review of medical records and ER physician. Patient was started on antibiotic coverage. Blood cultures were unable to be drawn after multiple attempts. Prior urine cultures shows pansensitive Pseudo monas. Patient was started on Levaquin in the ER. Patient has a low-grade fever, endorses to chest pain following trauma from fall. Also endorses to chronic back pain but denies headache photophobia. Unable to provide a detailed history. Feels weak and lethargic. 06/09-patient hemodynamically improving currently on vasopressors down from 15 mics to 8 mics. Systolics improved from 60s and now achieving a map over 65. Improving urine output. Improving endorgan dysfunction. More alert lucid and respond to commands. Complaining of suprapubic tenderness however abdominal ultrasound no evidence of hydronephrosis. No family at bedside. Tachycardia down from 120s to low 100. T-max 101.5. Blood cultures pending. Remains critically ill. Continue treatment per guidelines 06/10-patient continues to improve. Down to 5 mics Levophed. Gradually improving urine output. Hemodynamic stabilizing. Tachycardia improving. Persistent fever 100.5 T-max. C. difficile positive. Currently on vancomycin 250 4 times daily. De-escalate Rocephin based on urine cultures. Abdominal ultrasound no evidence of obstructive uropathy. patient alert and respond to commands. Ongoing physical therapy. White count downtrending. Potassium 3.2 on replacement. Sodium improved to 136. Phosphorus down to 1.6 start replacement. Creatinine improved 0.7 06/11-patient doing a lot better. Off vasopressors since 1 AM. No overnight fever chills. Complains of abdominal discomfort and severe constipation. Currently on antibiotics for UTI and C. difficile. Start mag citrate. White count 12.5, potassium improved to 4.3. Phosphorus down to 1.5, repeat UA persistent pyuria. No overnight fever chills. More alert lucid. No family at bedside. Transfer to medical floor. 06/12-patient doing well. No overnight event. Multiple bowel movements. White count up to 15.3, sodium 140 phosphorus down to 1.4. Continue replacement. Stable hemodynamics. No fever chills. Anticipate discharge 24 hours. Ongoing physical therapy nutrition support. DC Rocephin in 24 hours. Continue oral vancomycin for C. difficile on discharge - Constitutional Vitals: Vital Signs Temp Pulse Resp BP Pulse Ox 97.9 F 90 20 111/61 96 06/12/19 07:12 06/12/19 07:12 06/12/19 07:12 06/12/19 07:12 06/12/19 07:12 Period Temp Pulse Resp BP Sys/Romero Pulse Ox Last 24 Hr 97.6 F-99.7 F 85-93 20-24 99-131/56-73 96-100 Intake and Output 06/11/19 06/12/19 06/12/19 21:59 05:59 13:59 Intake Total 220 480 65 Output Total 200 Balance 20 480 65 Weight 129 lb 8 oz Intake & Output: Intake & Output 06/11/19 06/12/19 06/12/19 21:59 05:59 13:59 Intake Total 220 480 65 Output Total 200 Balance 20 480 65 Weight 129 lb 8 oz Intake: IV 65 Oral 220 480 Output: Void Amount 200 Other: Meal Dinner Breakfast Percent of Meal Consumed 80% 25% Feeding Ability Independent Assist with Tray Set Up Urine Appearance Clear Urine Color [place] Urine Odor Normal Stool Size Small Stool Color Brown Stool Consistency Radha # Bowel Movements 1 General appearance: no acute distress Exam: Alert oriented Nonlabored breathing No anxiety No lymphedema Chakraborty is draining clear urine Medical - PN: Obj Da - Labs CBC & Chem 7: 06/12/19 05:45 06/12/19 05:45 Labs: Abnormal Lab Results 06/12/19 06/12/19 06/11/19 05:45 05:45 05:00 WBC 15.3 H RBC 3.30 L Hgb 9.9 L Hct 30.5 L RDW 16.2 H MPV 11.6 H Seg Neutrophils % Lymphocytes % RBC Morphology Anisocytosis Potassium Carbon Dioxide 18 L 18 L Glucose 200 H 156 H Calcium 8.2 L 7.6 L Phosphorus 1.4 L 1.5 L Magnesium 2.8 H Alkaline Phosphatase 118 H Lactate Dehydrogenase 358 H 313 H Total Protein 4.9 L 4.8 L Albumin 2.4 L 2.4 L Urine Ketones Ur Leukocyte Esterase Urine RBC Urine WBC Urine Yeast (Budding) 06/11/19 06/10/19 06/10/19 05:00 10:03 04:06 WBC 12.5 H RBC 3.37 L Hgb 10.0 L Hct 31.0 L RDW 15.3 H MPV 12.0 H Seg Neutrophils % 94 H Lymphocytes % 1 L RBC Morphology Abnorm A Anisocytosis Few A Potassium 3.2 L Carbon Dioxide 21 L Glucose 189 H Calcium 7.5 L Phosphorus 1.6 L Magnesium Alkaline Phosphatase Lactate Dehydrogenase Total Protein 4.7 L Albumin 2.4 L Urine Ketones 20 A Ur Leukocyte Esterase 250 A Urine RBC 4 H Urine WBC 174 H Urine Yeast (Budding) Mod A 06/10/19 06/09/19 04:06 05:11 WBC RBC 3.56 L Hgb 10.7 L Hct 32.2 L RDW 15.0 H MPV 11.3 H Seg Neutrophils % 84 H Lymphocytes % 4 L 9 L RBC Morphology Abnorm A Abnorm A Anisocytosis Few A Few A Potassium Carbon Dioxide Glucose Calcium Phosphorus Magnesium Alkaline Phosphatase Lactate Dehydrogenase Total Protein Albumin Urine Ketones Ur Leukocyte Esterase Urine RBC Urine WBC Urine Yeast (Budding) Meds: Medications Acetaminophen (Tylenol) 650 mg PO Q4-6HP PRN; Protocol PRN Reason: Per Pain Protocol/Fever > 101 Hydrocodone Bitart/Acetaminophen ([place] 10/325mg) 1 tab PO QID [facility]; Protocol Last Admin: 06/11/19 21:01 Dose: 1 tab Documented by: Bisacodyl (Dulcolax) 10 mg [place] Q2-3DAYS PRN PRN Reason: Constipation Dextrose (Dextrose 50%) 0 ml IV UD PRN PRN Reason: Hypoglycemia Diagnostic Test (Pha) (Accu-Chek) 1 each FS ACHS [facility] Last Admin: 06/12/19 07:57 Dose: 1 each Documented by: Diltiazem HCl (Cardizem Sr) 120 mg PO DAILY [facility] Docusate Sodium (Colace) 100 mg PO BID [facility] Last Admin: 06/11/19 21:02 Dose: 100 mg Documented by: Duloxetine HCl (Cymbalta) 60 mg PO DAILY [facility] Glucose (Insta-Glucose) 15 gm PO PRN PRN PRN Reason: Hypoglycemia Guaifenesin/Codeine Phosphate (Robitussin Ac) 10 ml PO Q4HP PRN PRN Reason: Cough Heparin Sodium (Porcine) (Heparin) 5,000 unit SQ Q12 [facility] Last Admin: 06/11/19 20:58 Dose: 5,000 unit Documented by: Ceftriaxone Sodium 2 gm/ (Dextrose) 50 mls @ 100 mls/hr IV Q24H [facility]; Protocol Last Admin: 06/12/19 08:59 Dose: 100 mls/hr Documented by: Magnesium Sulfate (Magnesium Sulfate) 2 gm in 50 mls @ 50 mls/hr IV UD PRN PRN Reason: MG = or < 1.7 Acetaminophen (Ofirmev) 650 mg in 65 mls @ 130 mls/hr IV Q6HP PRN; Protocol PRN Reason: Per Pain Protocol/Fever > 101 Last Infusion: 06/12/19 07:30 Dose: Infused Documented by: Insulin Human Lispro (Humalog) 0 unit SQ ACHS [facility]; Protocol Last Admin: 06/11/19 20:59 Dose: 3 units Documented by: Iron Carb/Multivit/Autoglazier/Folic Acid (Multivitamin W/Minerals) 1 tab PO DAILY [facility] Magnesium Oxide (Magnesium Oxide) 400 mg PO BID [facility] Last Admin: 06/11/19 21:01 Dose: 400 mg Documented by: Melatonin (Melatonin 3mg Tablet) 3 mg PO HSP PRN PRN Reason: Insomnia Meloxicam (Mobic) 7.5 mg PO QDAY [facility]; Protocol Metoprolol Tartrate (Lopressor) 25 mg PO BID [facility] Last Admin: 06/11/19 21:04 Dose: Not Given Documented by: Magic Mouthwash ( Viscous Lidocaine/Benadryl/Maalox) 0 dose SSP Q4-6HP PRN PRN Reason: MOUTH SORES Ondansetron HCl (Zofran Odt) 4 mg SL Q4-6HP PRN; Protocol PRN Reason: Nausea And Vomiting Last Admin: 06/11/19 14:41 Dose: 4 mg Documented by: Ondansetron HCl (Zofran) 4 mg IV Q4-6HP PRN; Protocol PRN Reason: Nausea And Vomiting Mirabegron [ (Myrbetriq] 25 Mg) 1 dose PO QDAY [facility] Last Admin: 06/12/19 08:59 Dose: Not Given Documented by: Phenazopyridine HCl (Pyridium) 200 mg PO TIDP PRN PRN Reason: Dysuria Polyethylene Glycol (Miralax) 17 gm PO DAILYP PRN PRN Reason: Constipation Potassium Chloride (Klor-Con) 40 meq PO DAILYP PRN PRN Reason: K+ < 3.5 Potassium/Phosphorus/Sodium (Neutra Phos) 2 packet PO BID [facility] Last Admin: 06/11/19 21:01 Dose: 2 packet Documented by: Prednisolone Acetate (Pred Forte Ophth Drops) 1 gtt OU QID [facility] Last Admin: 06/12/19 08:25 Dose: Not Given Documented by: Senna/Docusate Sodium (Senna Plus Tablet) 1 tab PO HS [facility] Last Admin: 06/11/19 21:02 Dose: 1 tab Documented by: Sitagliptin Phosphate (Januvia) 100 mg PO DAILY [facility] Sodium Chloride (Saline Flush) 10 ml IV Q8 [facility] Last Admin: 06/12/19 08:24 Dose: 10 ml Documented by: Sodium Chloride (Sodium Chloride) 1 gm PO TID [facility] Last Admin: 06/11/19 21:02 Dose: 1 gm Documented by: Tamsulosin HCl (Flomax) 0.4 mg PO QDAY [facility] Thiamine HCl (Vitamin B1) 100 mg PO DAILY [facility] Tizanidine HCl (Zanaflex) 4 mg PO QHS [facility] Last Admin: 06/11/19 21:02 Dose: 4 mg Documented by: Tobramycin Sulfate (Tobrex 0.3% Ophth Drops) 1 gtt OU QID [facility] Last Admin: 06/12/19 08:26 Dose: Not Given Documented by: Vancomycin HCl (Vancomycin Oral Irina) 250 mg PO QID [facility]; Protocol Last Admin: 06/12/19 09:00 Dose: 250 mg Documented by: Medical - PN: A/P - Time Spent With Patient Total time spent is greater than 50% in coordination of care (as documented) at patient's floor/unit and/or counseling patient: 25 - 35 minutes (1) Pseudomonas urinary tract infection Status: Acute Assessment and plan: * Complicated Pseudomonas/E. coli UTI with cystitis. Continue Rocephin for additional 24 hours * C. difficile enterocolitis clinical improvement noted on oral vancomycin. * Septic shock with endorgan dysfunction-secondary to E. coli UTI/C. difficile enterocolitis. Off pressors. Clinically resolved. However white count over 15,000 * Low phosphorus continue replacement * Hypovolemic hyponatremia-resolved with crystalloids * Rebound constipation resolved with bowel protocol * DM type II continue CC diet/sliding scale insulin * Anxiety disorder stable on Cymbalta * Chronic back pain/DJD -stable on home dose opioids * History of hypertension restart metoprolol/Cardizem * Full Code Plan * DC Rocephin in 24 hours, continue oral vancomycin * DC Chakraborty's catheter * PT OT/nutrition support/high-protein calorie supplements * Continue pre-existing medical condition management as above * Replace phosphorus * SNF transfer coordination per case management Current Visit: Yes
[2019-06-12 10:14] LABS: Anisocytosis 1+ (NONE SEEN); Lymphocytes % 2 % (15-49); Monocytes % (Manual) 3 % (1-12); Myelocytes % 1 % (0-0); Platelet Estimate NORMAL (NORMAL); RBC Morphology ABNORM (NORMAL); Segmented Neutrophils % 94 % (38-78)
[2019-06-12] MEDS: INSULIN LISPRO 1 UNIT/0.01 ML UNIT SQ SCH ×4 (10:24→21:43)
--- NOTE | 2019-06-12 13:44 | Internal Med Progress Note ---
Medical - PN: Subj Patient information: Note initiated : 06/12/19 at 1:38 pm Service Date, if different from initiated Date: [] Patient: Esme Soriano a 78 y/o F admitted on 06/08/19 for vomiting, diarrhea. Chief Complaint: [] Interval history: Ms. Soriano is a 78 year old F resident of [facility] who presents with progressive weakness following multiple episodes of diarrhea vomiting. Patient has had a progressive decline in her functional status and over the last 24 hours have became increasingly confused. She also sustained an unwitnessed fall at the [facility] due to her increasing weakness she however does not recollect the exact time and events leading up to fall. She was brought in the ER for evaluation. Initial work-up was consistent with low-grade fever, significant pyuria/elevated white count, tachycardia consistent with sepsis. Hospitalist service was consulted. At the time evaluation patient is minimal responsive although she is able to answer some of the questions and respond to review of systems. No family members are present. Most of the history is obtained from review of medical records and ER physician. Patient was started on antibiotic coverage. Blood cultures were unable to be drawn after multiple attempts. Prior urine cultures shows pansensitive Pseudom onas. Patient was started on Levaquin in the ER. Patient has a low-grade fever, endorses to chest pain following trauma from fall. Also endorses to chronic back pain but denies headache photophobia. Unable to provide a detailed history. Feels weak and lethargic. 06/09-patient hemodynamically improving currently on vasopressors down from 15 mics to 8 mics. Systolics improved from 60s and now achieving a map over 65. Improving urine output. Improving endorgan dysfunction. More alert lucid and respond to commands. Complaining of suprapubic tenderness however abdominal ultrasound no evidence of hydronephrosis. No family at bedside. Tachycardia down from 120s to low 100. T-max 101.5. Blood cultures pending. Remains critically ill. Continue treatment per guidelines 06/10-patient continues to improve. Down to 5 mics Levophed. Gradually improving urine output. Hemodynamic stabilizing. Tachycardia improving. Persistent fever 100.5 T-max. C. difficile positive. Currently on vancomycin 250 4 times daily. De-escalate Rocephin based on urine cultures. Abdominal ultrasound no evidence of obstructive uropathy. patient alert and respond to commands. Ongoing physical therapy. White count downtrending. Potassium 3.2 on replacement. Sodium improved to 136. Phosphorus down to 1.6 start replacement. Creatinine improved 0.7 06/11-patient doing a lot better. Off vasopressors since 1 AM. No overnight fever chills. Complains of abdominal discomfort and severe constipation. Currently on antibiotics for UTI and C. difficile. Start mag citrate. White count 12.5, potassium improved to 4.3. Phosphorus down to 1.5, repeat UA persistent pyuria. No overnight fever chills. More alert lucid. No family at bedside. Transfer to medical floor. 06/12-patient doing well. No overnight event. Multiple bowel movements. White count up to 15.3, sodium 140 phosphorus down to 1.4. Continue replacement. Stable hemodynamics. No fever chills. Anticipate discharge 24 hours. Ongoing physical thera 06/13 - Constitutional Vitals: Vital Signs Temp Pulse Resp BP Pulse Ox 97.9 F 90 20 111/61 96 06/12/19 07:12 06/12/19 07:12 06/12/19 07:12 06/12/19 07:12 06/12/19 07:12 Period Temp Pulse Resp BP Sys/Romero Pulse Ox Last 24 Hr 97.6 F-98.3 F 85-93 20-24 99-131/56-67 96-98 Intake and Output 06/11/19 06/12/19 06/12/19 21:59 05:59 13:59 Intake Total 220 480 65 Output Total 200 Balance 20 480 65 Weight 58.74 kg 58.74 kg Patient Weight 06/13/19 05:59 Weight 58.74 kg Intake & Output: Intake & Output 06/11/19 06/12/19 06/12/19 21:59 05:59 13:59 Intake Total 220 480 65 Output Total 200 Balance 20 480 65 Weight 58.74 kg 58.74 kg Intake: IV 65 Oral 220 480 Output: Void Amount 200 Other: Meal Dinner Breakfast Percent of Meal Consumed 80% 25% Feeding Ability Independent Assist with Tray Set Up Urine Appearance Clear Urine Color [place] Urine Odor Normal Stool Size Small Stool Color Brown Stool Consistency Radha # Bowel Movements 1 Exam: General: Alert, Awake, No acute Distress Eyes/N/T: EOMI, Head/Neck: neck supple, CV: RRR, No murmurs, Pulm: Clear b/l, no wheezing/rhonchi/rales Abd: soft, nontender, +BS x4 Ext: no clubbing/cyanosis/edema Neuro: Alert, no focal deficits, moves all extremities, Skin: warm/dry Medical - PN: Obj Da - Labs CBC & Chem 7: 06/12/19 05:45 06/12/19 13:58 Labs: Abnormal Lab Results 06/12/19 06/12/19 06/11/19 05:45 05:45 05:00 WBC 15.3 H RBC 3.30 L Hgb 9.9 L Hct 30.5 L RDW 16.2 H MPV 11.6 H Seg Neutrophils % 94 H Lymphocytes % 2 L Myelocytes % 1 H RBC Morphology Abnorm A Anisocytosis 1+ A Potassium Carbon Dioxide 18 L 18 L Glucose 200 H 156 H Calcium 8.2 L 7.6 L Phosphorus 1.4 L 1.5 L Magnesium 2.8 H Alkaline Phosphatase 118 H Lactate Dehydrogenase 358 H 313 H Total Protein 4.9 L 4.8 L Albumin 2.4 L 2.4 L Urine Ketones Ur Leukocyte Esterase Urine RBC Urine WBC Urine Yeast (Budding) 06/11/19 06/10/19 06/10/19 05:00 10:03 04:06 WBC 12.5 H RBC 3.37 L Hgb 10.0 L Hct 31.0 L RDW 15.3 H MPV 12.0 H Seg Neutrophils % 94 H Lymphocytes % 1 L Myelocytes % RBC Morphology Abnorm A Anisocytosis Few A Potassium 3.2 L Carbon Dioxide 21 L Glucose 189 H Calcium 7.5 L Phosphorus 1.6 L Magnesium Alkaline Phosphatase Lactate Dehydrogenase Total Protein 4.7 L Albumin 2.4 L Urine Ketones 20 A Ur Leukocyte Esterase 250 A Urine RBC 4 H Urine WBC 174 H Urine Yeast (Budding) Mod A 06/10/19 04:06 WBC RBC 3.56 L Hgb 10.7 L Hct 32.2 L RDW 15.0 H MPV 11.3 H Seg Neutrophils % 84 H Lymphocytes % 4 L Myelocytes % RBC Morphology Abnorm A Anisocytosis Few A Potassium Carbon Dioxide Glucose Calcium Phosphorus Magnesium Alkaline Phosphatase Lactate Dehydrogenase Total Protein Albumin Urine Ketones Ur Leukocyte Esterase Urine RBC Urine WBC Urine Yeast (Budding) Meds: Medications Acetaminophen (Tylenol) 650 mg PO Q4-6HP PRN; Protocol PRN Reason: Per Pain Protocol/Fever > 101 Hydrocodone Bitart/Acetaminophen ([place] 10/325mg) 1 tab PO QID [facility]; Protocol Last Admin: 06/12/19 09:57 Dose: 1 tab Documented by: Bisacodyl (Dulcolax) 10 mg [place] Q2-3DAYS PRN PRN Reason: Constipation Dextrose (Dextrose 50%) 0 ml IV UD PRN PRN Reason: Hypoglycemia Diagnostic Test (Pha) (Accu-Chek) 1 each FS ACHS [facility] Last Admin: 06/12/19 11:48 Dose: 1 each Documented by: Diltiazem HCl (Cardizem Sr) 120 mg PO DAILY [facility] Last Admin: 06/12/19 09:57 Dose: 120 mg Documented by: Docusate Sodium (Colace) 100 mg PO BID [facility] Last Admin: 06/12/19 09:57 Dose: 100 mg Documented by: Duloxetine HCl (Cymbalta) 60 mg PO DAILY [facility] Last Admin: 06/12/19 09:55 Dose: 60 mg Documented by: Ferrous Sulfate (Ferrous Sulfate) 325 mg PO QAMCC [facility] Furosemide (Lasix) 40 mg PO QDAY [facility] Glucose (Insta-Glucose) 15 gm PO PRN PRN PRN Reason: Hypoglycemia Guaifenesin/Codeine Phosphate (Robitussin Ac) 10 ml PO Q4HP PRN PRN Reason: Cough Heparin Sodium (Porcine) (Heparin) 5,000 unit SQ Q12 [facility] Last Admin: 06/12/19 09:55 Dose: 5,000 unit Documented by: Hydroxyzine HCl (Atarax) 25 mg PO QIDP PRN PRN Reason: urticaria Ceftriaxone Sodium 2 gm/ (Dextrose) 50 mls @ 100 mls/hr IV Q24H [facility]; Protocol Last Admin: 06/12/19 08:59 Dose: 100 mls/hr Documented by: Magnesium Sulfate (Magnesium Sulfate) 2 gm in 50 mls @ 50 mls/hr IV UD PRN PRN Reason: MG = or < 1.7 Acetaminophen (Ofirmev) 650 mg in 65 mls @ 130 mls/hr IV Q6HP PRN; Protocol PRN Reason: Per Pain Protocol/Fever > 101 Last Infusion: 06/12/19 07:30 Dose: Infused Documented by: Insulin Human Lispro (Humalog) 0 unit SQ ACHS [facility]; Protocol Last Admin: 06/12/19 10:24 Dose: 3 units Documented by: Iron Carb/Multivit/Kitchen Hand/Folic Acid (Multivitamin W/Minerals) 1 tab PO DAILY [facility] Last Admin: 06/12/19 09:57 Dose: 1 tab Documented by: Magnesium Oxide (Magnesium Oxide) 400 mg PO BID [facility] Last Admin: 06/12/19 09:56 Dose: 400 mg Documented by: Melatonin (Melatonin 3mg Tablet) 3 mg PO HSP PRN PRN Reason: Insomnia Meloxicam (Mobic) 7.5 mg PO QDAY [facility]; Protocol Last Admin: 06/12/19 09:55 Dose: 7.5 mg Documented by: [facility]) [facility] Metoprolol Tartrate (Lopressor) 25 mg PO BID [facility] Last Admin: 06/12/19 09:56 Dose: 25 mg Documented by: Magic Mouthwash ( Viscous Lidocaine/Benadryl/Maalox) 0 dose SSP Q4-6HP PRN PRN Reason: MOUTH SORES Ondansetron HCl (Zofran) 4 mg IV Q4-6HP PRN; Protocol PRN Reason: Nausea And Vomiting Ondansetron HCl (Zofran Odt) 8 mg PO Q8HP PRN PRN Reason: nausea and vomiting Mirabegron [ (Myrbetriq] 25 Mg) 1 dose PO QDAY [facility] Last Admin: 06/12/19 08:59 Dose: Not Given Documented by: Phenazopyridine HCl (Pyridium) 200 mg PO TIDP PRN PRN Reason: Dysuria Polyethylene Glycol (Miralax) 17 gm PO DAILYP PRN PRN Reason: Constipation Potassium Chloride (Klor-Con) 40 meq PO DAILYP PRN PRN Reason: K+ < 3.5 Potassium/Phosphorus/Sodium (Neutra Phos) 2 packet PO BID [facility] Last Admin: 06/12/19 09:54 Dose: 2 packet Documented by: Prednisolone Acetate (Pred Forte Ophth Drops) 1 gtt OU QID [facility] Last Admin: 06/12/19 13:16 Dose: Not Given Documented by: Senna/Docusate Sodium (Senna Plus Tablet) 1 tab PO HS [facility] Last Admin: 06/11/19 21:02 Dose: 1 tab Documented by: Sitagliptin Phosphate (Januvia) 100 mg PO DAILY [facility] Last Admin: 06/12/19 09:56 Dose: 100 mg Documented by: Sodium Chloride (Saline Flush) 10 ml IV Q8 [facility] Last Admin: 06/12/19 08:24 Dose: 10 ml Documented by: Sodium Chloride (Sodium Chloride) 1 gm PO TID [facility] Last Admin: 06/12/19 09:56 Dose: 1 gm Documented by: Tamsulosin HCl (Flomax) 0.4 mg PO QDAY [facility] Last Admin: 06/12/19 09:57 Dose: 0.4 mg Documented by: Thiamine HCl (Vitamin B1) 100 mg PO DAILY [facility] Last Admin: 06/12/19 09:55 Dose: 100 mg Documented by: Tizanidine HCl (Zanaflex) 4 mg PO QHS [facility] Last Admin: 06/11/19 21:02 Dose: 4 mg Documented by: Tobramycin Sulfate (Tobrex 0.3% Ophth Drops) 1 gtt OU QID [facility] Last Admin: 06/12/19 13:16 Dose: Not Given Documented by: Vancomycin HCl (Vancomycin Oral Irina) 250 mg PO QID [facility]; Protocol Last Admin: 06/12/19 09:00 Dose: 250 mg Documented by: Medical - PN: A/P - Time Spent With Patient Total time spent is greater than 50% in coordination of care (as documented) at patient's floor/unit and/or counseling patient: - Narrative A/P Narrative: A: *Complicated Pseudomonas/E. coli UTI: *C. difficile enterocolitis clinical improvement noted on oral vancomycin. *Septic shock with endorgan dysfunction: secondary to E. coli UTI/C. difficile enterocolitis -Off pressors. Clinically resolved. However white count over 15,000, no bands *Hypophosphorus: *Hypovolemic hyponatremia: resolved with crystalloids *Rebound constipation resolved with bowel protocol *DM type II: *Anxiety disorder: stable on Cymbalta *Chronic back pain/DJD: stable on home dose opioids *HTN: Plan: -DC Rocephin after today, continue oral vancomycin -PT OT/nutrition support/high-protein calorie supplements -Replace phosphorus prn -restart home metoprolol/Cardizem at lower doses -CC diet/sliding scale insulin -SNF transfer coordination per case management -ppx: Lovenox
--- NOTE | 2019-06-12 13:49 | Discharge Summary ---
Medical - DS: Prov Patient information: Note initiated : 06/12/19 at 1:44 pm Service Date, if different from initiated Date: [] Patient: Esme Soriano 78 y/o F admitted on 06/08/19 for vomiting, diarrhea. Chief Complaint: [] Date of admission: 06/08/19 19:36 Discharge date: 06/13/19 Primary care physician: Amber Mak Consults: 06/08/19 17:28 Consult to Physician [CONS] Stat Comment: Consulting Provider: Michael Fish Reason For Exam: Physician to Consult 06/10/19 09:36 Consult to Physician [CONS] Routine Comment: Consulting Provider: Lucas Fisher Reason For Exam: Physician to Consult Medical - DS: Meds - Discharge Medications Prescriptions: Diltiazem [Cardizem] 30 mg PO TIDAC #90 tab Metoprolol Tartrate [Lopressor] 12.5 mg PO BID #30 tab Vancomycin Oral Irina 250 mg PO QID #1 bottle Active and Home Medications: Home Medications acetaminophen 325 mg tablet 325 mg PO .COMPLEX PRN #150 tab 12/24/17 [Rx Confir med 06/08/19 Last Taken Unknown] magnesium hydroxide 400 mg/5 mL oral suspension 30 ml PO ONCE ml 12/24/17 [History Confirmed 06/08/19 Last Taken Unknown] mirabegron 25 mg tablet,extended release 24 hr 25 mg PO QDAY 12/24/17 [History Confirmed 06/08/19 Last Taken Unknown] tamsulosin 0.4 mg capsule 0.4 mg PO QDAY 12/24/17 [History Confirmed 06/08/19 Last Taken Unknown] tizanidine 4 mg capsule 4 mg PO QHS cap 12/24/17 [History Confirmed 06/08/19 Last Taken Unknown] darcy, using at all times 1 dose MISC DAILY #1 each 12/24/17 [History Confirmed 06/08/19 Last Taken Unknown] docusate sodium 100 mg capsule 100 mg PO QDAY #30 cap 01/08/18 [Rx Confirmed 06/08/19 Last Taken Unknown] estradiol See Rx Instructions VAGINAL .QOD #42.5 g 01/08/18 [Rx Confirmed 06/08/19 Last Taken Unknown] meloxicam 7.5 mg tablet 7.5 mg PO QDAY #30 tab 06/24/18 [Rx Confirmed 06/08/19 Last Taken Unknown] hydrocodone 10 mg-acetaminophen 325 mg tablet 1 tab PO QID 07/31/18 [History Confirmed 06/08/19 Last Taken 09/29/18 06:00] Ferrous Sulfate [Iron] 325 mg PO DAILY 09/29/18 [History Confirmed 06/08/19 Last Taken Unknown] oxybutynin chloride 5 mg tablet 5 mg PO QHS #30 tab 11/12/18 [Rx Confirmed 06/08/19 Last Taken Unknown] phenazopyridine 97.5 mg tablet 97.5 mg PO TID PRN #30 tab 11/17/18 [Rx Confirmed 06/08/19 Last Taken Unknown] hydroxyzine HCl 25 mg tablet 25 mg PO QID PRN #30 tab 11/19/18 [Rx Confirmed Last Taken Unknown] magnesium 250 mg tablet 500 mg PO BID tab 12/16/18 [History Confirmed 06/08/19 Last Taken Unknown] sodium chloride 1 gram tablet 1,000 mg PO TID #90 tab 12/17/18 [Rx Confirmed 06/08/19 Last Taken Unknown] blood sugar diagnostic See Rx Instructions .ROUTE .MEDSUPPLY #50 each 02/03/19 [Rx Confirmed 06/08/19 Last Taken Unknown] blood-glucose meter See Rx Instructions .ROUTE .MEDSUPPLY #1 each 02/03/19 [Rx Confirmed 06/08/19 Last Taken Unknown] ketorolac 0.5 % eye drops 1 drp OPHTHALMIC QID 02/03/19 [History Confirmed 06/08/19 Last Taken Unknown] prednisolone acetate 1 % eye drops,suspension 1 drp OPHTHALMIC QID 02/03/19 [History Confirmed 06/08/19 Last Taken Unknown] tobramycin 0.3 % eye drops 1 drp OPHTHALMIC QID ml 02/03/19 [History Confirmed 06/08/19 Last Taken Unknown] omeprazole 20 mg capsule,delayed release See Rx Instructions .ROUTE .COMPLEX #30 each 03/09/19 [Rx Confirmed 06/08/19 Last Taken Unknown] diltiazem HCl 90 mg capsule,extended release 12 hr 90 mg PO BID #60 cap 03/18/19 [Rx Confirmed 06/08/19 Last Taken Unknown] metformin 500 mg tablet 500 mg PO BID #60 tab 03/18/19 [Rx Confirmed 06/08/19 Last Taken Unknown] metoprolol tartrate 25 mg tablet 25 mg PO BID #60 tab 03/18/19 [Rx Confirmed 06/08/19 Last Taken Unknown] duloxetine 60 mg capsule,delayed release See Rx Instructions .ROUTE .COMPLEX #30 each 04/13/19 [Rx Confirmed 06/08/19 Last Taken Unknown] loperamide 2 mg capsule 2 mg PO .COMPLEX PRN #20 cap 04/28/19 [Rx Confirmed 06/08/19 Last Taken Unknown] furosemide 20 mg tablet 40 mg PO QDAY #60 tab 05/18/19 [Rx Confirmed 06/08/19 Last Taken Unknown] ondansetron HCl 8 mg tablet 8 mg PO Q8H PRN #30 tab 05/29/19 [Rx Confirmed 06/08/19 Last Taken Unknown] Cephalexin [Keflex] 1 tab PO DAILY 06/08/19 [History Confirmed 06/08/19 Last Ta mauro Unknown] Medical - DS: Hosp Hospital Course: Ms. Soriano is a 78 year old F resident of [facility] who presents with progressive weakness following multiple episodes of diarrhea vomiting. Patient has had a progressive decline in her functional status and over the last 24 hours have became increasingly confused. She also sustained an unwitnessed fall at the [facility] due to her increasing weakness she however does not recollect the exact time and events leading up to fall. She was brought in the ER for evaluation. Initial work-up was consistent with low-grade fever, significant pyuria/elevated white count, tachycardia consistent with sepsis. Hospitalist service was consulted. At the time evaluation patient is minimal responsive although she is able to answer some of the questions and respond to review of systems. No family members are present. Most of the history is obtained from review of medical records and ER physician. Patient was started on antibiotic coverage. Blood cultures were unable to be drawn after multiple attempts. Prior urine cultures shows pansensitive Pseudomonas. Patient was started on Levaquin in the ER. Patient has a low- grade fever, endorses to chest pain following trauma from fall. Also endorses to chronic back pain but denies headache photophobia. Unable to provide a detailed history. Feels weak and lethargic. 06/09-patient hemodynamically improving currently on vasopressors down from 15 mics to 8 mics. Systolics improved from 60s and now achieving a map over 65. Improving urine output. Improving endorgan dysfunction. More alert lucid and respond to commands. Complaining of suprapubic tenderness however abdominal ultrasound no evidence of hydronephrosis. No family at bedside. Tachycardia down from 120s to low 100. T-max 101.5. Blood cultures pending. Remains critically ill. Continue treatment per guidelines 06/10-patient continues to improve. Down to 5 mics Levophed. Gradually improving urine output. Hemodynamic stabilizing. Tachycardia improving. Persistent fever 100.5 T-max. C. difficile positive. Currently on vancomycin 250 4 times daily. De-escalate Rocephin based on urine cultures. Abdominal ultrasound no evidence of obstructive uropathy. patient alert and respond to commands. Ongoing physical therapy. White count downtrending. Potassium 3.2 on replacement. Sodium improved to 136. Phosphorus down to 1.6 start replacement. Creatinine improved 0.7 06/11-patient doing a lot better. Off vasopressors since 1 AM. No overnight fev er chills. Complains of abdominal discomfort and severe constipation. Currently on antibiotics for UTI and C. difficile. Start mag citrate. White count 12.5, potassium improved to 4.3. Phosphorus down to 1.5, repeat UA persistent pyuria. No overnight fever chills. More alert lucid. No family at bedside. Transfer to medical floor. 06/12-patient doing well. No overnight event. Multiple bowel movements. White count up to 15.3, sodium 140 phosphorus down to 1.4. Continue replacement. Stable hemodynamics. No fever chills. Anticipate discharge 24 hours. Ongoing physical thera 06/13 Doing well. No overnight events. No complaints. Made adjustments in her diltiazem and metoprolol for low normal blood pressures. Stable for discharge. A: *Complicated E. coli UTI: *C. difficile enterocolitis clinical improvement noted on oral vancomycin. *Septic shock with endorgan dysfunction: secondary to E. coli UTI/C. difficile enterocolitis *Hypophos: resolved *Hypovolemic hyponatremia: resolved with crystalloids *Rebound constipation resolved with bowel protocol *DM type II: *Anxiety disorder: stable on Cymbalta *Chronic back pain/DJD: stable on home dose opioids *HTN: Discharge diagnosis: Complicated UTI C. difficile colitis septic shock electrolyte imbalance Secondary discharge diagnosis: Hyponatremia diabetes anxiety chronic back pain hypertension - Time Spent with Patient Total time spent providing and/or coordinating discharge services: Greater than 30 minutes Medical - DS: Exam - Constitutional Vitals: Vital Signs Temp Pulse Resp BP Pulse Ox 06/12/19 07:12 97.9 F 90 20 111/61 96 06/12/19 04:20 97.6 F 93 H 20 131/67 97 06/11/19 23:35 98.3 F 85 20 99/56 97 06/11/19 18:50 97.9 F 87 24 H 110/60 98 Intake and Output 06/11/19 06/12/19 06/12/19 21:59 05:59 13:59 Intake Total 220 480 65 Output Total 200 Balance 20 480 65 Intake: IV 65 Oral 220 480 Output: Void Amount 200 Other: Meal Dinner Breakfast Percent of Meal Consumed 80% 25% Feeding Ability Independent Assist with Tray Set Up Urine Appearance Clear Urine Color Shirley Urine Odor Normal Stool Size Small Stool Color Brown Stool Consistency Radha # Bowel Movements 1 Weight 58.74 kg 58.74 kg Patient Weight 06/13/19 05:59 Weight 58.74 kg Medical - DS: Data Labs on day of discharge: Labs from last 24 hours 06/12/19 06/12/19 05:45 05:45 WBC 15.3 H RBC 3.30 L Hgb 9.9 L Hct 30.5 L MCV 92.4 MCH 30.0 MCHC 32.5 RDW 16.2 H Plt Count 274 MPV 11.6 H Total Counted 100 Seg Neutrophils % 94 H Band Neutrophils % Not Reportable Lymphocytes % 2 L Monocytes % (Manual) 3 Myelocytes % 1 H Platelet Estimate Normal RBC Morphology Abnorm A Anisocytosis 1+ A Sodium 140 Potassium 4.3 Chloride 106 Carbon Dioxide 18 L Anion Gap 16.0 BUN 15 Creatinine 0.7 GFR Calculation 82 Glucose 200 H Uric Acid 5.9 Calcium 8.2 L Phosphorus 1.4 L Magnesium 2.8 H Total Bilirubin 0.2 Direct Bilirubin < 0.2 GGT 14 AST 18 ALT 17 Alkaline Phosphatase 118 H Lactate Dehydrogenase 358 H Total Protein 4.9 L Albumin 2.4 L Globulin 2.5 Albumin/Globulin Ratio 1.0 Triglycerides 133 Preliminary micro results at discharge 06/09/19 12:20 Blood Culture - Preliminary Blood 06/09/19 12:10 Blood Culture - Preliminary Blood 06/08/19 22:19 Blood Culture - Preliminary Blood Medical - DS: A/P - Patient/Caregiver Discharge Instructions Activity: increase activity as tolerated Diet: Consistent Carbohydrate Prescriptions: Diltiazem [Cardizem] 30 mg PO TIDAC #90 tab Metoprolol Tartrate [Lopressor] 12.5 mg PO BID #30 tab Vancomycin Oral Irina 250 mg PO QID #1 bottle - Follow up Plan Follow up with: Amber Mak ARNP [Primary Care Provider] - Disposition: Xfer SNF Prognosis: Fair Rehab Potential: Fair I certify that the patient requires SNF services: Yes Overall status at discharge: patient is progressing back to baseline
[2019-06-12 14:52] LABS: Blood Urea Nitrogen 14 mg/dl (8-23); Calcium 7.7 mg/dl (8.6-10.4); Carbon Dioxide 21 mmol/L (22-30); Chloride 104 mmol/L (96-108); Glomerular Filtration Rate 82; Glucose 263 mg/dL (70-105); Phosphorous 1.3 mg/dL (2.7-4.5)
[2019-06-12] MEDS ORDERED: PHOSPHORUS 250 MG TABLET PO ONE (15:12)
[2019-06-12] MEDS ORDERED: SODIUM PHOSPHATE 30 MMOL in DEXTROSE 5% IN WATER 500 ML IV ONE (15:13)
[2019-06-12] MEDS: metFORMIN 500 MG TABLET PO SCH (16:15)
[2019-06-12] MEDS: SENNOSIDES/DOCUSATE SODIUM 1 TAB TABLET PO SCH (21:42)
[2019-06-12] MEDS: tiZANidine 4 MG TABLET PO SCH (21:43)
[2019-06-13] MEDS: ACETAMINOPHEN 650 MG/65 ML BOTTLE IV PRN ×2 (03:07→06:59)
[2019-06-13] MEDS: 0.9 % SODIUM CHLORIDE 10 ML SYRINGE IV SCH (06:58)
[2019-06-13] MEDS: INSULIN LISPRO 1 UNIT/0.01 ML UNIT SQ SCH (07:47)
[2019-06-13] MEDS ORDERED: FERROUS SULFATE 325 MG TABLET PO SCH (08:00)
--- NOTE | 2019-06-13 08:13 | Internal Med Progress Note ---
Medical - PN: Subj Patient information: Note initiated : 06/13/19 at 8:12 am Service Date, if different from initiated Date: [] Patient: Esme Soriano a 78 y/o F admitted on 06/08/19 for vomiting, diarrhea. Chief Complaint: [] Interval history: Ms. Soriano is a 78 year old F resident of [facility] who presents with progressive weakness following multiple episodes of diarrhea vomiting. Patient has had a progressive decline in her functional status and over the last 24 hours have became increasingly confused. She also sustained an unwitnessed fall at the [facility] due to her increasing weakness she however does not recollect the exact time and events leading up to fall. She was brought in the ER for evaluation. Initial work-up was consistent with low-grade fever, significant pyuria/elevated white count, tachycardia consistent with sepsis. Hospitalist service was consulted. At the time evaluation patient is minimal responsive although she is able to answer some of the questions and respond to review of systems. No family members are present. Most of the history is obtained from review of medical records and ER physician. Patient was started on antibiotic coverage. Blood cultures were unable to be drawn after multiple attempts. Prior urine cultures shows pansensitive Pseudom onas. Patient was started on Levaquin in the ER. Patient has a low-grade fever, endorses to chest pain following trauma from fall. Also endorses to chronic back pain but denies headache photophobia. Unable to provide a detailed history. Feels weak and lethargic. 06/09-patient hemodynamically improving currently on vasopressors down from 15 mics to 8 mics. Systolics improved from 60s and now achieving a map over 65. Improving urine output. Improving endorgan dysfunction. More alert lucid and respond to commands. Complaining of suprapubic tenderness however abdominal ultrasound no evidence of hydronephrosis. No family at bedside. Tachycardia down from 120s to low 100. T-max 101.5. Blood cultures pending. Remains critically ill. Continue treatment per guidelines 06/10-patient continues to improve. Down to 5 mics Levophed. Gradually improving urine output. Hemodynamic stabilizing. Tachycardia improving. Persistent fever 100.5 T-max. C. difficile positive. Currently on vancomycin 250 4 times daily. De-escalate Rocephin based on urine cultures. Abdominal ultrasound no evidence of obstructive uropathy. patient alert and respond to commands. Ongoing physical therapy. White count downtrending. Potassium 3.2 on replacement. Sodium improved to 136. Phosphorus down to 1.6 start replacement. Creatinine improved 0.7 06/11-patient doing a lot better. Off vasopressors since 1 AM. No overnight fever chills. Complains of abdominal discomfort and severe constipation. Currently on antibiotics for UTI and C. difficile. Start mag citrate. White count 12.5, potassium improved to 4.3. Phosphorus down to 1.5, repeat UA persistent pyuria. No overnight fever chills. More alert lucid. No family at bedside. Transfer to medical floor. 06/12-patient doing well. No overnight event. Multiple bowel movements. White count up to 15.3, sodium 140 phosphorus down to 1.4. Continue replacement. Stable hemodynamics. No fever chills. Anticipate discharge 24 hours. Ongoing physical thera 06/13 BP was little bit low during the night and evening metoprolol held.. Otherwise no overnight events - Constitutional Vitals: Vital Signs Temp Pulse Resp BP Pulse Ox 97.6 F 103 H 20 98/69 92 06/13/19 07:44 06/13/19 07:11 06/13/19 07:11 06/13/19 07:11 06/13/19 07:11 Period Temp Pulse Resp BP Sys/Romero Pulse Ox Last 24 Hr 97.6 F-99.2 F 80-103 16-20 89-126/51-73 92-97 Intake and Output 06/12/19 06/13/19 06/13/19 21:59 05:59 13:59 Intake Total 75 425 65 Output Total 1 Balance 74 425 65 Weight 62.823 kg Intake & Output: Intake & Output 06/12/19 06/13/19 06/13/19 21:59 05:59 13:59 Intake Total 75 425 65 Output Total 1 Balance 74 425 65 Weight 62.823 kg Intake: IV 65 65 Oral 75 360 Output: # of times incontinent of urine 1 Other: Meal Dinner Percent of Meal Consumed 0% Feeding Ability Independent Stool Size Smear Stool Color Brown Exam: General: Alert, Awake, No acute Distress Eyes/N/T: EOMI, Head/Neck: neck supple, CV: RRR, No murmurs, Pulm: Clear b/l, no wheezing/rhonchi/rales Abd: soft, +BS x4 Ext: no clubbing/cyanosis, trace b/l LE edema Neuro: Alert, no focal deficits, moves all extremities, Skin: warm/dry Medical - PN: Obj Da - Labs CBC & Chem 7: 06/12/19 05:45 06/12/19 13:58 Labs: Abnormal Lab Results 06/12/19 06/12/19 06/12/19 13:58 05:45 05:45 WBC 15.3 H RBC 3.30 L Hgb 9.9 L Hct 30.5 L RDW 16.2 H MPV 11.6 H Seg Neutrophils % 94 H Lymphocytes % 2 L Myelocytes % 1 H RBC Morphology Abnorm A Anisocytosis 1+ A Carbon Dioxide 21 L 18 L Glucose 263 H 200 H Calcium 7.7 L 8.2 L Phosphorus 1.3 L 1.4 L Magnesium 2.8 H Alkaline Phosphatase 118 H Lactate Dehydrogenase 358 H Total Protein 4.9 L Albumin 2.4 L Urine Ketones Ur Leukocyte Esterase Urine RBC Urine WBC Urine Yeast (Budding) 06/11/19 06/11/19 06/10/19 05:00 05:00 10:03 WBC 12.5 H RBC 3.37 L Hgb 10.0 L Hct 31.0 L RDW 15.3 H MPV 12.0 H Seg Neutrophils % 94 H Lymphocytes % 1 L Myelocytes % RBC Morphology Abnorm A Anisocytosis Few A Carbon Dioxide 18 L Glucose 156 H Calcium 7.6 L Phosphorus 1.5 L Magnesium Alkaline Phosphatase Lactate Dehydrogenase 313 H Total Protein 4.8 L Albumin 2.4 L Urine Ketones 20 A Ur Leukocyte Esterase 250 A Urine RBC 4 H Urine WBC 174 H Urine Yeast (Budding) Mod A 06/10/19 04:06 WBC RBC Hgb Hct RDW MPV Seg Neutrophils % 84 H Lymphocytes % 4 L Myelocytes % RBC Morphology Abnorm A Anisocytosis Few A Carbon Dioxide Glucose Calcium Phosphorus Magnesium Alkaline Phosphatase Lactate Dehydrogenase Total Protein Albumin Urine Ketones Ur Leukocyte Esterase Urine RBC Urine WBC Urine Yeast (Budding) Meds: Medications Acetaminophen (Tylenol) 650 mg PO Q4-6HP PRN; Protocol PRN Reason: Per Pain Protocol/Fever > 101 Hydrocodone Bitart/Acetaminophen ([place] 10/325mg) 1 tab PO QID SNOW; Protocol Last Admin: 06/12/19 21:46 Dose: Not Given Documented by: Bisacodyl (Dulcolax) 10 mg FL Q2-3DAYS PRN PRN Reason: Constipation Dextrose (Dextrose 50%) 0 ml IV UD PRN PRN Reason: Hypoglycemia Diagnostic Test (Pha) (Accu-Chek) 1 each FS ACHS [facility] Last Admin: 06/13/19 06:56 Dose: 1 each Documented by: Diltiazem HCl (Cardizem Sr) 120 mg PO DAILY [facility] Last Admin: 06/12/19 09:57 Dose: 120 mg Documented by: Docusate Sodium (Colace) 100 mg PO BID [facility] Last Admin: 06/12/19 21:42 Dose: 100 mg Documented by: Duloxetine HCl (Cymbalta) 60 mg PO DAILY [facility] Last Admin: 06/12/19 09:55 Dose: 60 mg Documented by: Enoxaparin Sodium (Lovenox) 40 mg SQ DAILY [facility] Ferrous Sulfate (Ferrous Sulfate) 325 mg PO QAMCC SNOW Furosemide (Lasix) 40 mg PO QDAY [facility] Glucose (Insta-Glucose) 15 gm PO PRN PRN PRN Reason: Hypoglycemia Guaifenesin/Codeine Phosphate (Robitussin Ac) 10 ml PO Q4HP PRN PRN Reason: Cough Hydroxyzine HCl (Atarax) 25 mg PO QIDP PRN PRN Reason: urticaria Ceftriaxone Sodium 2 gm/ (Dextrose) 50 mls @ 100 mls/hr IV Q24H [facility]; Protocol Last Admin: 06/12/19 08:59 Dose: 100 mls/hr Documented by: Magnesium Sulfate (Magnesium Sulfate) 2 gm in 50 mls @ 50 mls/hr IV UD PRN PRN Reason: MG = or < 1.7 Acetaminophen (Ofirmev) 650 mg in 65 mls @ 130 mls/hr IV Q6HP PRN; Protocol PRN Reason: Per Pain Protocol/Fever > 101 Last Infusion: 06/13/19 07:22 Dose: Infused Documented by: Insulin Human Lispro (Humalog) 0 unit SQ ACHS [facility]; Protocol Last Admin: 06/13/19 07:47 Dose: 1 units Documented by: Iron Carb/Multivit/Weinert/Folic Acid (Multivitamin W/Minerals) 1 tab PO DAILY S Last Admin: 06/12/19 09:57 Dose: 1 tab Documented by: Magnesium Oxide (Magnesium Oxide) 400 mg PO BID [facility] Last Admin: 06/12/19 21:42 Dose: 400 mg Documented by: Melatonin (Melatonin 3mg Tablet) 3 mg PO HSP PRN PRN Reason: Insomnia Meloxicam (Mobic) 7.5 mg PO QDAY [facility]; Protocol Last Admin: 06/12/19 09:55 Dose: 7.5 mg Documented by: Metformin HCl (Glucophage) 500 mg PO BIDCC [facility] Last Admin: 06/12/19 16:15 Dose: 500 mg Documented by: Metoprolol Tartrate (Lopressor) 25 mg PO BID [facility] Last Admin: 06/12/19 21:46 Dose: Not Given Documented by: Magic Mouthwash ( Viscous Lidocaine/Benadryl/Maalox) 0 dose SSP Q4-6HP PRN PRN Reason: MOUTH SORES Last Admin: 06/12/19 22:21 Dose: 1 dose Documented by: Ondansetron HCl (Zofran) 4 mg IV Q4-6HP PRN; Protocol PRN Reason: Nausea And Vomiting Ondansetron HCl (Zofran Odt) 8 mg PO Q8HP PRN PRN Reason: nausea and vomiting Mirabegron [ (Myrbetriq] 25 Mg) 1 dose PO QDAY [facility] Last Admin: 06/12/19 08:59 Dose: Not Given Documented by: Phenazopyridine HCl (Pyridium) 200 mg PO TIDP PRN PRN Reason: Dysuria Polyethylene Glycol (Miralax) 17 gm PO DAILYP PRN PRN Reason: Constipation Potassium Chloride (Klor-Con) 40 meq PO DAILYP PRN PRN Reason: K+ < 3.5 Potassium/Phosphorus/Sodium (Neutra Phos) 2 packet PO BID [facility] Last Admin: 06/12/19 21:43 Dose: 2 packet Documented by: Prednisolone Acetate (Pred Forte Ophth Drops) 1 gtt OU QID [facility] Last Admin: 06/12/19 21:47 Dose: Not Given Documented by: Senna/Docusate Sodium (Senna Plus Tablet) 1 tab PO [facility] Last Admin: 06/12/19 21:42 Dose: 1 tab Documented by: Sitagliptin Phosphate (Januvia) 100 mg PO DAILY [facility] Last Admin: 06/12/19 09:56 Dose: 100 mg Documented by: Sodium Chloride (Saline Flush) 10 ml IV Q8 [facility] Last Admin: 06/13/19 06:58 Dose: 10 ml Documented by: Sodium Chloride (Sodium Chloride) 1 gm PO TID [facility] Last Admin: 06/12/19 21:42 Dose: 1 gm Documented by: Tamsulosin HCl (Flomax) 0.4 mg PO QDAY [facility] Last Admin: 06/12/19 09:57 Dose: 0.4 mg Documented by: Thiamine HCl (Vitamin B1) 100 mg PO DAILY [facility] Last Admin: 06/12/19 09:55 Dose: 100 mg Documented by: Tizanidine HCl (Zanaflex) 4 mg PO QHS [facility] Last Admin: 06/12/19 21:43 Dose: 4 mg Documented by: Tobramycin Sulfate (Tobrex 0.3% Ophth Drops) 1 gtt OU QID [facility] Last Admin: 06/12/19 21:47 Dose: Not Given Documented by: Vancomycin HCl (Vancomycin Oral Irina) 250 mg PO QID [facility]; Protocol Last Admin: 06/12/19 21:48 Dose: 250 mg Documented by: Medical - PN: A/P - Time Spent With Patient Total time spent is greater than 50% in coordination of care (as documented) at patient's floor/unit and/or counseling patient: - Narrative A/P Narrative: A: *Complicated Pseudomonas/E. coli UTI: *C. difficile enterocolitis clinical improvement noted on oral vancomycin. *Septic shock with endorgan dysfunction: secondary to E. coli UTI/C. difficile enterocolitis -Off pressors. Clinically resolved. However white count over 15,000, no bands *Hypophos: *Hypovolemic hyponatremia: resolved with crystalloids *Rebound constipation resolved with bowel protocol *DM type II: *Anxiety disorder: stable on Cymbalta *Chronic back pain/DJD: stable on home dose opioids *HTN: Plan: -DC Rocephin after today, continue oral vancomycin -PT OT/nutrition support/high-protein calorie supplements -Replace phosphorus prn -restart home metoprolol/Cardizem at lower doses -cont home lasix -CC diet/sliding scale insulin/metformin/sitagliptin -SNF transfer coordination per case management -ppx: Lovenox
[2019-06-13] MEDS ORDERED: METOPROLOL TARTRATE 25 MG TABLET PO SCH (09:00)
[2019-06-13] MEDS ORDERED: ENOXAPARIN 40 MG/0.4 ML SYRINGE SQ SCH (09:00)
[2019-06-13] MEDS ORDERED: FUROSEMIDE 20 MG TABLET PO SCH (09:00)
[2019-06-13] MEDS: NEUTRA PHOS 1 PACKET PO SCH (09:10)
[2019-06-13] MEDS: DULoxetine 30 MG CAPSULE PO SCH (09:10)
[2019-06-13] MEDS: cefTRIAXone 2 GM in DEXTROSE 5% IN WATER 50 ML IV SCH (09:11)
[2019-06-13] MEDS: sitaGLIPtin 100 MG TABLET PO SCH (09:11)
[2019-06-13] MEDS: THIAMINE 100 MG TABLET PO SCH (09:15)
[2019-06-13] MEDS: SODIUM CHLORIDE 1 GM TABLET PO SCH (09:15)
[2019-06-13] MEDS: TAMSULOSIN 0.4 MG CAPSULE PO SCH (09:15)
[2019-06-13] MEDS: DOCUSATE SODIUM 100 MG CAPSULE PO SCH (09:16)
[2019-06-13] MEDS: MELOXICAM 7.5 MG TABLET PO SCH (09:16)
[2019-06-13] MEDS: VANCOMYCIN ORAL SOL 1,000 MG/10 ML BOTTLE PO SCH (09:18)
[2019-06-13 09:31] LABS: Hematocrit 31.8 % (34.1-44.9); Mean Cell Volume 96.1 fL (80.0-100.0); Mean Corpuscular HGB Conc 31.4 g/dL (31.0-36.0); Mean Platelet Volume 11.6 fL (7.4-10.4); Platelet Count 244 K/mcL (140-440); RBC 3.31 M/mcL (3.59-5.38); Red Cell Distribution Width 17.2 % (11.5-14.5); WBC 13.8 K/mcL (4.50-11.00)
[2019-06-13 09:34] LABS: ALT/SGPT 17 U/l (0-40); AST/SGOT 15 U/l (0-37); Albumin/Globulin Ratio 0.7 (1.0-2.3); Alkaline Phosphatase 121 U/L (39-117); Bilirubin,Direct < 0.2 mg/dL (0.0-0.3); Bilirubin,Total 0.2 mg/dL (0.0-1.0); Blood Urea Nitrogen 16 mg/dl (8-23); Calcium 7.5 mg/dl (8.6-10.4); Carbon Dioxide 18 mmol/L (22-30); Chloride 103 mmol/L (96-108); Globulin 2.7 gm/dL (2.2-3.7); Glomerular Filtration Rate 82; Glucose 157 mg/dL (70-105); Lactate Dehydrogenase 383 U/L (94-250); Phosphorous 3.6 mg/dL (2.7-4.5); Triglycerides 103 mg/dl (<150); Uric Acid 5.8 mg/dL (2.5-8.0)
[2019-06-13] MEDS: metFORMIN 500 MG TABLET PO SCH (09:36)
[2019-06-13] MEDS: MAGNESIUM OXIDE 400 MG TABLET PO SCH (09:37)
[2019-06-13] MEDS: MULTIVIT,THER IRON,CA,FA & MIN 1 TABLET PO SCH (09:42)
[2019-06-13] MEDS: Mirabegron [Myrbetriq] 25 MG PO SCH (09:43)
[2019-06-13] MEDS: prednisoLONE 1% OPHTH DROPS 1ML BOTTLE OU SCH (09:43)
[2019-06-13] MEDS: TOBRAMYCIN 0.3% OU SCH (09:43)
[2019-06-13] MEDS: HYDROcodone/APAP 10/325MG TABLET PO SCH (09:55)
[2019-06-13 10:16] LABS: Anisocytosis 1+ (NONE SEEN); Band Neutrophils % 1 % (0-10); Lymphocytes % 1 % (15-49); Platelet Estimate NORMAL (NORMAL); RBC Morphology ABNORM (NORMAL); Segmented Neutrophils % 98 % (38-78)
[2019-06-13] MEDS ORDERED: DILTIAZEM 30 MG TABLET PO SCH (11:30)
== END 2019-06-13 11:23 | DRG 871 ==
LOC: ED 12:01 → ICU 12:01 → OBSVTOIN 19:36 → ICU 19:37 → MEDSUR 06-11 12:15
PROVIDERS: ADMIT Internal Medicine; ATTEND Internal Medicine

== ENCOUNTER 2019-06-17 15:13 | Inpatient (IN) ==
--- NOTE | 2019-06-17 15:27 | Emergency Department Note ---
Abdominal Pain HPI - General Chief Complaint: Abdominal Pain Stated Complaint: Abdominal Pain, No BM x4 days. Time Seen by Provider: 06/17/19 15:20 Source: patient, EMS Mode of arrival: EMS Limitations: no limitations - History of Present Illness HPI Narrative: 78-year old patient presenting to the [facility] emergency department with a chief complaint of abdominal pain. Patient reports the pain is acute for past several days. Patient noting pain is cramping. Patient reporting pain is moderate. Patient with exacerbating factors of nothing. Patient with ameliorating factors of nothing. Patient with associated symptoms of constipation . Patient without associated symptoms of nausea, vomiting, diarrhea, decreased appetite, fever, blood in stool, hematemesis, dysuria, frequency, hematuria, weight loss, cough, shortness of breath, orthopnea, exertional component. - Related Data Home Medications Medication Instructions Recorded Confirmed magnesium hydroxide 400 mg/5 mL 30 ml PO ONCE ml 12/24/17 06/17/19 oral suspension mirabegron 25 mg tablet,extended 25 mg PO QDAY 12/24/17 06/17/19 release 24 hr tamsulosin 0.4 mg capsule 0.4 mg PO QDAY 12/24/17 06/17/19 tizanidine 4 mg capsule 4 mg PO QHS cap 12/24/17 06/17/19 walker, using at all times 1 dose MISC DAILY #1 each 12/24/17 06/17/19 Ferrous Sulfate [Iron] 325 mg PO DAILY 09/29/18 06/17/19 magnesium 250 mg tablet 500 mg PO BID tab 12/16/18 06/17/19 ketorolac 0.5 % eye drops 1 drp OPHTHALMIC QID 02/03/19 06/17/19 prednisolone acetate 1 % eye 1 drp OPHTHALMIC QID 02/03/19 06/17/19 drops,suspension tobramycin 0.3 % eye drops 1 drp OPHTHALMIC QID ml 02/03/19 06/17/19 Metoprolol Tartrate [Lopressor] 25 mg PO BID 06/17/19 06/17/19 Previous Rx's Medication Instructions Recorded acetaminophen 325 mg tablet 325 mg PO .COMPLEX PRN #150 tab 12/24/17 docusate sodium 100 mg capsule 100 mg PO QDAY #30 cap 01/08/18 estradiol See Rx Instructions VAGINAL .QOD 09/19/18 #42.5 g meloxicam 7.5 mg tablet 7.5 mg PO QDAY #30 tab 06/24/18 oxybutynin chloride 5 mg tablet 5 mg PO QHS #30 tab 11/12/18 phenazopyridine 97.5 mg tablet 97.5 mg PO TID PRN #30 tab 11/17/18 hydroxyzine HCl 25 mg tablet 25 mg PO QID PRN #30 tab 11/19/18 sodium chloride 1 gram tablet 1,000 mg PO TID #90 tab 12/17/18 blood sugar diagnostic See Rx Instructions .ROUTE 02/03/19 .MEDSUPPLY #50 each blood-glucose meter See Rx Instructions .ROUTE 02/03/19 .MEDSUPPLY #1 each omeprazole 20 mg capsule,delayed See Rx Instructions .ROUTE 03/09/19 release .COMPLEX #30 each metformin 500 mg tablet 500 mg PO BID #60 tab 03/18/19 duloxetine 60 mg capsule,delayed See Rx Instructions .ROUTE 04/13/19 release .COMPLEX #30 each loperamide 2 mg capsule 2 mg PO .COMPLEX PRN #20 cap 04/28/19 furosemide 20 mg tablet 40 mg PO QDAY #60 tab 05/18/19 ondansetron HCl 8 mg tablet 8 mg PO Q8H PRN #30 tab 05/29/19 Diltiazem [Cardizem] 30 mg PO TIDAC #90 tab 06/13/19 HYDROcodone/ACETAMINOPHEN [[place] 1 tab PO QID PRN #20 tab 06/13/19 10-325 Tablet] Allergies Allergy/AdvReac Type Severity Reaction Status Date / Time succinylcholine Allergy Severe Difficulty Verified 06/08/19 12:04 [From Anectine] Breathing ciprofloxacin [From Cipro] Allergy Mild Hives Verified 06/08/19 12:04 Sulfa (Sulfonamide Allergy Mild Hives Verified 06/08/19 12:04 Antibiotics) Review of Systems All systems ED: reviewed and negative except as stated. Abdominal Pain PMH - Past Medical History PMFSH Narrative: All Active Problems (Last Reviewed 05/29/19 @ 10:13 by CATHIE Padron) Sepsis (Acute) Change in mental status (Acute) Lethargy (Acute) Pseudomonas urinary tract infection (Acute) Positive occult stool blood test (Chronic) Diarrhea (Acute) Hyperkalemia (Acute) Pre-diabetes (Chronic) Infection due to Pseudomonas aeruginosa [place] Epidemic Strain (Chronic) Lumbar back pain (Chronic) UTI symptoms (Chronic) Encounter for mini-mental status examination (Chronic) Systolic murmur (Chronic) Opioid dependence (Chronic) GERD (gastroesophageal reflux disease) (Chronic) Macular degeneration (Chronic) Chronic constipation (Chronic) Urinary incontinence (Chronic) Benign heart murmur (Chronic) History of recurrent UTIs (Chronic) Chronic right shoulder pain (Chronic) Chronic low back pain (Chronic) Muscle weakness (Chronic) Hypo-osmolality and hyponatremia (Chronic) Vitamin D deficiency (Chronic) Vitamin B 12 deficiency (Chronic) Overactive bladder (Chronic) Chronic pain (Chronic) Depression (Chronic) Hypertension (Chronic) Osteoporosis (Chronic) Muscle pain (Chronic) Arthritis (Chronic) Medical history: Denies: CVA, myocardial infarction, TIA - Social History Smoking status: Never smoker Physical Exam Vital signs are assessed for evidence of hemodynamic instability. Pt is hypotensive on presentation. General: Alert, interactive, appropriate Head: Atraumatic, normocephalic Eyes: Extraocular movements intact, PERRLA Neck: Trachea midline, full range of motion Chest: Symmetrical chest wall rise, clear to auscultation bilateral without wheezes rales crackles or rubs Cardiovascular: Patient with excellent perfusion to the extremities, regular rate and rhythm without M/R/G Abdomen: Patient primarily tenderness to the abdomen diffusely, patient without exam suggestive of peritonitis, nondistended, normoactive bowel sounds, no masses, no hepatosplenomegaly, no rebound, and no guarding Extremities: Full range of motion joints, warm well perfused Neuro: Alert, less verbal than baseline, cranial nerves II through XII grossly intact Psychiatric: Normal affect normal mood Limitations: no limitations Course Vital Signs Temperature 99.9 F H 06/17/19 15:14 Pulse Rate 94 H 06/17/19 15:14 Respiratory Rate 22 06/17/19 15:14 Blood Pressure 83/68 06/17/19 15:14 Pulse Oximetry (%) 93 06/17/19 15:14 Temperature 99.9 F H 06/17/19 15:14 Pulse Rate 50 L 06/17/19 16:47 Respiratory Rate 17 06/17/19 16:16 Blood Pressure 123/69 06/17/19 17:31 Pulse Oximetry (%) 82 L 06/17/19 16:47 Abdominal Pain - MDM Narrative Medical decision making narrative: Initial work-up for this issue included the following laboratory evaluation CBC, CMP, urinalysis as well as CT imaging. Differential diagnosis considered included: obstruction, perforation, mesenteric ischemia, Crohn's disease, ulcerative colitis, viral gastroenteritis, spontaneous bacterial peritonitis, ketoacidosis, adrenal insufficiency, fo odborne illness, IBS, constipation, AAA, abdominal compartment syndrome, abdominal migraine, chronic abdominal pain, colonic pseudoobstruction, zoster, hypercalcemia, hypothyroidism, appendicitis, diverticulitis, nephrolithiasis, pyelonephritis, acute urinary retention, cystitis, colitis, pelvic inflammatory disease, ovarian torsion, ruptured ovarian cyst, endometriosis, endometritis, GC/chlamydia, fibroids, ovarian hyperstimulation, malignancy, salpingitis, tubo- ovarian abscess. CT abdomen reveals bowel obstruction patient has had previous Kristin-en-Y reconstruction. Discussed the case with Dr. Barker who will admit the patient for ongoing management. - Lab Data Result diagrams: 06/17/19 15:29 06/17/19 15:29 Lab Results 06/17/19 06/17/19 06/17/19 Range/Units 15:29 15:29 16:50 WBC 23.3 H (4.50-11.00) K/mcL RBC 3.25 L (3.59-5.38) M/mcL Hgb 9.7 L (11.2-15.7) g/dL Hct 29.2 L (34.1-44.9) % MCV 89.8 (80.0-100.0) fL MCH 29.8 (26.0-34.0) pg MCHC 33.2 (31.0-36.0) g/dL RDW 17.9 H (11.5-14.5) % Plt Count 191 (140-440) K/mcL MPV 13.2 H (7.4-10.4) fL Gran % 94.2 H (38.0-78.0) % Lymph % (Auto) 1.8 L (15.5-49.0) % [place] % (Auto) 3.7 (1.0-12.0) % Eos % (Auto) 0.1 (0.0-7.0) % Baso % (Auto) 0.2 (0.0-2.0) % Gran # 21.90 H (1.80-8.00) K/mcL Lymph # (Auto) 0.43 L (1.50-4.80) K/mcL [place] # (Auto) 0.86 (0.10-0.90) K/mcL Eos # (Auto) 0.03 (0.00-0.70) K/mcL Baso # (Auto) 0.04 (0.00-0.30) K/mcL Sodium 135 (133-145) mmol/L Potassium 5.5 H (3.3-5.1) mmol/L Chloride 98 (96-108) mmol/L Carbon Dioxide 16 L (22-30) mmol/L Anion Gap 21.0 H (8-16) BUN 29 H (8-23) mg/dl Creatinine 1.2 H (0.6-1.1) mg/dl GFR Calculation 43 Glucose 227 H (70-105) mg/dL Calcium 7.8 L (8.6-10.4) mg/dl Total Bilirubin 0.4 (0.0-1.0) mg/dL AST 24 (0-37) U/l ALT 23 (0-40) U/l Alkaline Phosphatase 229 H (39-117) U/L Total Protein 5.4 L (5.9-8.4) gm/dL Albumin 2.3 L (3.2-5.2) gm/dL Globulin 3.1 (2.2-3.7) gm/dL Albumin/Globulin Ratio 0.7 L (1.0-2.3) Urine Color Nava Urine Appearance Clear Urine pH 5.0 (5.0-9.0) Ur Specific [place] 1.024 (1.000-1.035) Urine Protein 30 A (NEG) mg/dL Urine Glucose (UA) Negative (NEG) mg/dL Urine Ketones 5/tr A (NEG) mg/dL Urine Occult Blood 0.03 A (<0.03) mg/dL Urine Nitrate Neg (NEG) Urine Bilirubin Neg (NEG) mg/dL Urine Urobilinogen Neg (NEG) mg/dL Ur Leukocyte Esterase 25 A (NEG) /uL Urine RBC 7 H (0-1) /hpf Urine WBC 16 H (0-4) /hpf Ur Squamous Epith Cells 2 (0-4) /hpf Urine Bacteria 0 (0) /hpf Hyaline Casts 21 H (0-2) /lpf Urine Mucus Few (0) /hpf Urine Yeast (Budding) Mod A (0) /hpf Ur Culture Indicated? Yes Disposition Pt seen by PUBLIC RELATIONS PROFESSIONAL/PA only: No Clinical Impression: Small bowel obstruction Disposition: Xfer As Inpt ([facility]) Condition: Serious Referrals: Amber Mak ARNP [Primary Care Provider] -
[2019-06-17 16:20] LABS: Chloride 98 mmol/L (96-108)
--- NOTE | 2019-06-17 16:30 | Cat Scan Report ---
CLINICAL INFORMATION: Abdominal pain. No bowel movement COMPARISON: Abdomen and pelvic CT approximately two weeks prior: 06/04/2019 TECHNIQUE: 0.625 mm helical slices were obtained from the mid heart through the subtrochanteric regions. Following reconstruction, 2.5 mm sagittal, coronal and axial reformatted images were processed and reviewed at bone and soft tissue windows.The exam was performed using radiation dose optimization techniques including, but not limited to, automated exposure control, adjustment of the mA and/or kV according to patient size and use of iterative reconstruction technique. FINDINGS: Lung bases show new small bilateral pleural effusions. There is mild bibasilar atelectasis. The heart is moderately enlarged with very heavy calcification in the mitral annulus and valve region. Abdominal images show the noncontrast liver are unremarkable. The gallbladder is surgically absent. Common bile duct has returned to normal caliber - 6 mm. Previously, it measured 11 mm. The noncontrast pancreas, right adrenal gland and spleen are normal. A 15 mm simple cyst lateral right kidney is stable. No significant renal lesions. Mild atrophy of the right kidney - 8 cm length. Left kidney normal size 10 cm length. A 20 mm benign adenoma, in the left adrenal gland is stable. Right adrenal gland is normal. Pelvic images show hysterectomy and oophorectomy changes. Urinary bladder unremarkable. Kristin-en-Y gastric bypass changes are appreciated. There is marked dilatation of the distal esophagus, gastric pouch Kristin limb and also the distal aspect of the biliopancreatic limb. The remainder of the small bowel is moderately dilated to a transition point in the left upper quadrant where there is likely an adhesion or stricture. The distal ileum is decompressed. There is less than normal amount of stool and gas seen within the colon. Sigmoid diverticulosis noted, but no evidence of diverticulitis. There is no free air, free fluid or adenopathy. Moderate subcutaneous edema is seen throughout the abdomen, most prominent in both flank regions, seen before. Bone windows show degenerative changes in the lower lumbar spine with L4-5 fusion changes no focal osseous lesions IMPRESSION: 1. High-grade mid small bowel obstruction in the left upper quadrant due to adhesion or stricture. There is moderate dilatation of the proximal small bowel including the gastric pouch, Kristin limb and the distal aspect of biliopancreatic limb. There is no free air to suggest perforation or free fluid to suggest third spacing. 2. Return of the common bile duct normal diameter - 6 mm. 3. Mild atrophy - right kidney. 4. Small bilateral pleural effusions - new. Please consider the possibility of CHF. 5. Sigmoid diverticulosis, but no evidence of diverticulitis 6. Large amount of subcutaneous edema in the abdominal wall particularly both flank regions. A 4.1 cm fluid collection over the right trochanteric bursa has increased. 7. 20 mm benign adenoma left adrenal gland - stable Interpreted and Authenticated by: Rob Anglin 06/17/19
[2019-06-17 16:40] LABS: Basophils # (Auto) 0.04 K/mcL (0.00-0.30); Basophils % (Auto) 0.2 % (0.0-2.0); Eosinophils # (Auto) 0.03 K/mcL (0.00-0.70); Eosinophils % (Auto) 0.1 % (0.0-7.0); Granulocytes % (Auto) 94.2 % (38.0-78.0); Hematocrit 29.2 % (34.1-44.9); Hemoglobin 9.7 g/dL (11.2-15.7); Lymphocytes # (Auto) 0.43 K/mcL (1.50-4.80); Lymphocytes % (Auto) 1.8 % (15.5-49.0); Mean Cell Volume 89.8 fL (80.0-100.0); Mean Corpuscular HGB Conc 33.2 g/dL (31.0-36.0); Mean Platelet Volume 13.2 fL (7.4-10.4); Monocytes # (Auto) 0.86 K/mcL (0.10-0.90); Monocytes % (Auto) 3.7 % (1.0-12.0); Platelet Count 191 K/mcL (140-440); RBC 3.25 M/mcL (3.59-5.38); Red Cell Distribution Width 17.9 % (11.5-14.5); WBC 23.3 K/mcL (4.50-11.00)
[2019-06-17 16:50] LABS: ALT/SGPT 23 U/l (0-40); AST/SGOT 24 U/l (0-37); Bilirubin,Total 0.4 mg/dL (0.0-1.0); Blood Urea Nitrogen 29 mg/dl (8-23); Calcium 7.8 mg/dl (8.6-10.4); Carbon Dioxide 16 mmol/L (22-30); Glomerular Filtration Rate 43; Glucose 227 mg/dL (70-105)
[2019-06-17 18:04] LABS: Albumin 2.3 gm/dL (3.2-5.2); Albumin/Globulin Ratio 0.7 (1.0-2.3); Alkaline Phosphatase 229 U/L (39-117); Globulin 3.1 gm/dL (2.2-3.7)
[2019-06-17 18:14] LABS: Appearance,Urine CLEAR; Bacteria,Urine 0 /hpf (0); Bilirubin,Urine NEG (NEG); Color,Urine AMBER; Culture Indicated,Urine YES; Glucose,Urine (UA) NEGATIVE (NEG); Ketones,Urine 5/TR mg/dL (NEG); Leukocyte Esterase,Urine 25 /uL (NEG); Mucus,Urine FEW /hpf (0); Nitrate,Urine NEG (NEG); Protein,Urine 30 mg/dL (NEG); Specific Gravity,Urine 1.024 (1.000-1.035); Urine Blood 0.03 mg/dL (<0.03); Urine Budding Yeast MOD /hpf (0); Urine Hyaline Cast 21 /lpf (0-2); Urine RBC 7 /hpf (0-1); Urine Squamous Epithelial Cell 2 /hpf (0-4); Urine WBC 16 /hpf (0-4); Urobilinogen,Urine NEG (NEG)
[2019-06-17] MEDS ORDERED: 0.9 % SODIUM CHLORIDE 1,000 ML IV ONE ×2 (18:24→18:26)
--- NOTE | 2019-06-17 20:22 | General Surgery Consult Note ---
History of Present Illness Patient information: Note initiated : 06/17/19 at 8:16 pm Service Date, if different from initiated Date: [] Patient: Esme Soriano 78 y/o F admitted on for Abdominal Pain, No BM x4 days.. Chief Complaint: [] Reason for consult: abdominal pain Requesting physician: Bernardo Lees History of present illness: 78-year-old female admitted for possible Small bowel obstruction and exacerbation of renal failure. Patient also has increasing leukocytosis. The patient was recently hospitalized on 08 June through May 2019 with findings of UTI sepsis, C. difficile enterocolitis, septic shock, chronic constipation, diabetes mellitus, chronic pain. She presented with progressive decline for about 24 hours and was seen in the emergency room with sepsis. She was treated for urinary tract infection. Urine grew out Pseudomonas which was treated with Levaquin. She needed pressors. During that hospitalization, but improved. She was found to be C. difficile positive and was treated with oral vancomycin. She also had significant abdominal discomfort with severe constipation and was treated with mag citrate. She had multiple bowel movements thereafter and was felt to be stable for discharge on . The shannan ghter states that since she arrived at the facility. She has continued to complain of abdominal pain and it was noted that her abdomen was more distended. She returned today with findings of 23,000 white count with elevated BUN/creatinine. Her last bowel movement was the day of discharge. She states that she has had flatus over the past 2 days. She states that she had nausea and vomiting. CT scan shows dilated stomach Kristin-en-Y limb and distal small bowel with decompressed colon. She is status post gastric bypass many years ago. Patient appears to be critically ill and is admitted. She will be treated for narcotic induced constipation and will have follow-up x-rays tomorrow. Discussed with the daughter the potential that she may need laparotomy. If her bowel distention increases. Review of Systems ROS unobtainable: due to mental status Past History Past medical history: Recent UTI with sepsis. Recent C. difficile enterocolitis. Chronic opioid dependence. Chronic constipation complicated by opioids. Chronic pain syndrome. Hypertension. Past surgical history: 2. History of gastric bypass. History of chronic back surgery 2. History of cholecystectomy. Incisional hernia repair. Hysterectomy. Right shoulder surgery. Bilateral total knee replacement Past family history: Diabetes mellitus. Prostate cancer. Esophageal cancer Past social history: Former smoker. Denies alcohol use Denies drug use Medications and Allergies Home Medications Medication Instructions Recorded Confirmed Type acetaminophen 325 mg tablet 325 mg PO .COMPLEX PRN #150 tab 12/24/17 06/17/19 Rx magnesium hydroxide 400 mg/5 mL 30 ml PO ONCE ml 12/24/17 06/17/19 History oral suspension mirabegron 25 mg tablet,extended 25 mg PO QDAY 12/24/17 06/17/19 History release 24 hr tamsulosin 0.4 mg capsule 0.4 mg PO QDAY 12/24/17 06/17/19 History tizanidine 4 mg capsule 4 mg PO QHS cap 12/24/17 06/17/19 History walker, using at all times 1 dose MISC DAILY #1 each 12/24/17 06/17/19 History docusate sodium 100 mg capsule 100 mg PO QDAY #30 cap 01/08/18 06/17/19 Rx estradiol See Rx Instructions VAGINAL .QOD 01/08/18 06/17/19 Rx #42.5 g meloxicam 7.5 mg tablet 7.5 mg PO QDAY #30 tab 06/24/18 06/17/19 Rx Ferrous Sulfate [Iron] 325 mg PO DAILY 09/29/18 06/17/19 History oxybutynin chloride 5 mg tablet 5 mg PO QHS #30 tab 11/12/18 06/17/19 Rx phenazopyridine 97.5 mg tablet 97.5 mg PO TID PRN #30 tab 11/17/18 06/17/19 Rx hydroxyzine HCl 25 mg tablet 25 mg PO QID PRN #30 tab 11/19/18 06/17/19 Rx magnesium 250 mg tablet 500 mg PO BID tab 12/16/18 06/17/19 History sodium chloride 1 gram tablet 1,000 mg PO TID #90 tab 12/17/18 06/17/19 Rx blood sugar diagnostic See Rx Instructions .ROUTE 02/03/19 06/17/19 Rx .MEDSUPPLY #50 each blood-glucose meter See Rx Instructions .ROUTE 02/03/19 06/17/19 Rx .MEDSUPPLY #1 each ketorolac 0.5 % eye drops 1 drp OPHTHALMIC QID 02/03/19 06/17/19 History prednisolone acetate 1 % eye 1 drp OPHTHALMIC QID 02/03/19 06/17/19 History drops,suspension tobramycin 0.3 % eye drops 1 drp OPHTHALMIC QID ml 02/03/19 06/17/19 History omeprazole 20 mg capsule,delayed See Rx Instructions .ROUTE 03/09/19 06/17/19 Rx release .COMPLEX #30 each metformin 500 mg tablet 500 mg PO BID #60 tab 03/18/19 06/17/19 Rx duloxetine 60 mg capsule,delayed See Rx Instructions .ROUTE 04/13/19 06/17/19 Rx release .COMPLEX #30 each loperamide 2 mg capsule 2 mg PO .COMPLEX PRN #20 cap 04/28/19 06/17/19 Rx furosemide 20 mg tablet 40 mg PO QDAY #60 tab 05/18/19 06/17/19 Rx ondansetron HCl 8 mg tablet 8 mg PO Q8H PRN #30 tab 05/29/19 06/17/19 Rx Diltiazem [Cardizem] 30 mg PO TIDAC #90 tab 06/13/19 06/17/19 Rx HYDROcodone/ACETAMINOPHEN [[place] 1 tab PO QID PRN #20 tab 06/13/19 06/17/19 Rx 10-325 Tablet] Metoprolol Tartrate [Lopressor] 25 mg PO BID 06/17/19 06/17/19 History Allergies Allergy/AdvReac Type Severity Reaction Status Date / Time succinylcholine Allergy Severe Difficulty Verified 06/08/19 12:04 [From Anectine] Breathing ciprofloxacin [From Cipro] Allergy Mild Hives Verified 06/08/19 12:04 Sulfa (Sulfonamide Allergy Mild Hives Verified 06/08/19 12:04 Antibiotics) Exam Temp Pulse Resp BP Pulse Ox 99.9 F H 50 L 17 123/69 82 L 06/17/19 15:14 06/17/19 16:47 06/17/19 16:16 06/17/19 17:31 06/17/19 16:47 - General physical appearance well developed, well nourished, no distress - Eyes PERRL, normal ocular movement - ENT normal pinna, normal nares, no hearing loss, no congestion, other (edentulous; dry oral mucosa) - Head Head exam IM: Present: atraumatic, normocephalic - Neck no masses, no bruits, trachea midline, no lymphadenopathy, no venous distension - Cardiovascular Cardiovascular exam IM: Present: normal rate and rhythm, RRR, +S1, +S2. Absent: JVD, tachycardia - Respiratory normal expansion, normal respiratory effort, clear to auscultation - Abdomen Abdomen: Present: soft, tender (abdomen is distended and diffusely tender; active bowel sounds; no masses), bowel sounds, surgical scars (. Healed surgical scars) Hernia: Present: none - Genitourinary Present: normal external genitalia - Rectum Rectum: Present: normal sphincter tone, no hemorrhoids, no tenderness, no masses, no bleeding - Integumentary Present: no rash, no growths, no abnormal pigmentation, other (ulceration, right posterior calf;Diffuse anasarca.) - Neurologic Present: normal coordination, normal sensation, other (no gross motor deficit) - Musculoskeletal Present: normal gait, normal posture - Psychiatric Present: oriented to time, oriented to person, oriented to place, speech is normal, memory intact Results - Labs 06/17/19 15:29 06/17/19 15:29 Abnormal lab results 06/17/19 06/17/19 06/17/19 Range/Units 15:29 15:29 16:50 WBC 23.3 H (4.50-11.00) K/mcL RBC 3.25 L (3.59-5.38) M/mcL Hgb 9.7 L (11.2-15.7) g/dL Hct 29.2 L (34.1-44.9) % RDW 17.9 H (11.5-14.5) % MPV 13.2 H (7.4-10.4) fL Gran % 94.2 H (38.0-78.0) % Lymph % (Auto) 1.8 L (15.5-49.0) % Gran # 21.90 H (1.80-8.00) K/mcL Lymph # (Auto) 0.43 L (1.50-4.80) K/mcL Potassium 5.5 H (3.3-5.1) mmol/L Carbon Dioxide 16 L (22-30) mmol/L Anion Gap 21.0 H (8-16) BUN 29 H (8-23) mg/dl Creatinine 1.2 H (0.6-1.1) mg/dl Glucose 227 H (70-105) mg/dL Calcium 7.8 L (8.6-10.4) mg/dl Alkaline Phosphatase 229 H (39-117) U/L Total Protein 5.4 L (5.9-8.4) gm/dL Albumin 2.3 L (3.2-5.2) gm/dL Albumin/Globulin Ratio 0.7 L (1.0-2.3) Urine Protein 30 A (NEG) mg/dL Urine Ketones 5/tr A (NEG) mg/dL Urine Occult Blood 0.03 A (<0.03) mg/dL Ur Leukocyte Esterase 25 A (NEG) /uL Urine RBC 7 H (0-1) /hpf Urine WBC 16 H (0-4) /hpf Hyaline Casts 21 H (0-2) /lpf Urine Yeast (Budding) Mod A (0) /hpf Diabetes panel 06/17/19 Range/Units 15:29 Sodium 135 (133-145) mmol/L Potassium 5.5 H (3.3-5.1) mmol/L Chloride 98 (96-108) mmol/L Carbon Dioxide 16 L (22-30) mmol/L BUN 29 H (8-23) mg/dl Creatinine 1.2 H (0.6-1.1) mg/dl Glucose 227 H (70-105) mg/dL Calcium 7.8 L (8.6-10.4) mg/dl AST 24 (0-37) U/l ALT 23 (0-40) U/l Alkaline Phosphatase 229 H (39-117) U/L Total Protein 5.4 L (5.9-8.4) gm/dL Albumin 2.3 L (3.2-5.2) gm/dL Calcium panel 06/17/19 Range/Units 15:29 Calcium 7.8 L (8.6-10.4) mg/dl Albumin 2.3 L (3.2-5.2) gm/dL Pituitary panel 06/17/19 Range/Units 15:29 Sodium 135 (133-145) mmol/L Potassium 5.5 H (3.3-5.1) mmol/L Chloride 98 (96-108) mmol/L Carbon Dioxide 16 L (22-30) mmol/L BUN 29 H (8-23) mg/dl Creatinine 1.2 H (0.6-1.1) mg/dl Glucose 227 H (70-105) mg/dL Calcium 7.8 L (8.6-10.4) mg/dl Adrenal panel 06/17/19 Range/Units 15:29 Sodium 135 (133-145) mmol/L Potassium 5.5 H (3.3-5.1) mmol/L Chloride 98 (96-108) mmol/L Carbon Dioxide 16 L (22-30) mmol/L BUN 29 H (8-23) mg/dl Creatinine 1.2 H (0.6-1.1) mg/dl Glucose 227 H (70-105) mg/dL Calcium 7.8 L (8.6-10.4) mg/dl Total Bilirubin 0.4 (0.0-1.0) mg/dL AST 24 (0-37) U/l ALT 23 (0-40) U/l Alkaline Phosphatase 229 H (39-117) U/L Total Protein 5.4 L (5.9-8.4) gm/dL Albumin 2.3 L (3.2-5.2) gm/dL All other labs normal. Assessment and Plan (1) Drug-induced constipation Status: Acute (2) Sepsis Status: Acute (3) Change in mental status Status: Acute Qualifiers: Altered mental status type: unspecified Qualified Code(s): R41.82 - Altered mental status, unspecified (4) Opioid dependence Status: Chronic (5) Urinary incontinence Status: Chronic Comment: 12/24/17 refer to new urologist at patient request
[2019-06-17] MEDS ORDERED: METHYLNALTREXONE BROMIDE 12 MG/0.6 ML SYRINGE SC ONE (20:45)
[2019-06-17] MEDS: 0.9 % SODIUM CHLORIDE 1,000 ML IV SCH ×2 (21:09→21:45)
[2019-06-17] MEDS ORDERED: MAGNESIUM SULFATE 2 GM/50 ML BAG IV PRN (21:21)
[2019-06-17] MEDS ORDERED: POTASSIUM CHLORIDE 40 MEQ in DEXTROSE 5% IN WATER 500 ML IV PRN (21:21)
[2019-06-17] MEDS ORDERED: LACTULOSE 20 GM/30 ML ORAL.SOL PO PRN (21:21)
[2019-06-17] MEDS ORDERED: DEXTROSE 50% 50 ML VIAL IV PRN (21:21)
[2019-06-17] MEDS ORDERED: ACETAMINOPHEN 325 MG TABLET PO PRN (21:21)
[2019-06-17] MEDS ORDERED: IPRATROPIUM/ALBUTEROL 3 ML AMPUL.NEB NEB PRN (21:21)
[2019-06-17] MEDS ORDERED: DEXTROSE 31 GM ORAL.SUSP PO PRN (21:21)
[2019-06-17] MEDS ORDERED: ONDANSETRON 4 MG/2 ML VIAL IV PRN (21:21)
[2019-06-17] MEDS ORDERED: SENNOSIDES 1 TABLET PO PRN (21:21)
[2019-06-17] MEDS ORDERED: POLYETHYLENE GLYCOL 3350 17 GM PACKET PO PRN (21:21)
[2019-06-17] MEDS ORDERED: POTASSIUM CHLORIDE 20 MEQ TABLET PO PRN ×2 (21:21)
[2019-06-17] MEDS ORDERED: hydrALAZINE 20 MG/ML VIAL IV PRN (21:30)
[2019-06-17] MEDS ORDERED: SODIUM BICARBONATE 50 MEQ/50 ML VIAL IV ONE (21:31)
--- NOTE | 2019-06-17 21:42 | Internal Med History&Physical ---
Medical - H&P: [facility] Patient information: Note initiated : 06/17/19 at 9:37 pm Service Date, if different from initiated Date: [] Patient: Esme Soriano a 78 y/o F admitted on 06/17/19 for Abdominal Pain, No BM x4 days.. Chief Complaint: [] History of present illness: Ms. Soriano is a 78 year old F Patient presents to the ED for increasing abdominal pain and distention. She was recently admitted for E. coli urinary tract infection and C. difficile enterocolitis septic shock. Patient has had some nausea vomiting. She has not had a bowel movement since the day she was discharged. She is passing flatus. Abdominal pain is achy/crampy in all over. Had a poor oral intake over the past few days. Evaluation in the ED revealed a leukocytosis of mild bump in her creatinine and CT imaging which was concerning for high-grade bowel obstruction. Dr. Barker is constant tactic from the ED. She is afebrile but noted to have a leukocytosis. Has a history of recurrent urinary tract infections. Her urinalysis shows 25 leukocyte Estrace and 16 WbC. Urinalysis on the showed 250 leukocyte esterase and 174 WBC. Blood pressure was noted to be low in the 80s when she first arrived as well and was given IV fluid bolus with resolution and blood pressures in the 120s and 130s thereafter Review of Systems: Pertinent positives as above. Denies headache/fever/chills/chest pain/dyspnea/diarrhea. Remaining 10 point review of system reviewed negative Medical - H&P: [facility] Medical history: Medical History (Last Reviewed 05/29/19 @ 10:13 by CATHIE Padron) Pre-diabetes (Chronic) Infection due to Pseudomonas aeruginosa [place] Epidemic Strain (Chronic) Lumbar back pain (Chronic) Encounter for mini-mental status examination (Chronic) Systolic murmur (Chronic) Opioid dependence (Chronic) GERD (gastroesophageal reflux disease) (Chronic) Macular degeneration (Chronic) Chronic constipation (Chronic) Urinary incontinence (Chronic) Benign heart murmur (Chronic) History of recurrent UTIs (Chronic) Chronic right shoulder pain (Chronic) Chronic low back pain (Chronic) Muscle weakness (Chronic) Hypo-osmolality and hyponatremia (Chronic) Vitamin D deficiency (Chronic) Vitamin B 12 deficiency (Chronic) Overactive bladder (Chronic) Chronic pain (Chronic) Depression (Chronic) Hypertension (Chronic) Osteoporosis (Chronic) Muscle pain (Chronic) Arthritis (Chronic) Incisional hernia (Chronic) Acute diarrhea (Resolved) Altered mental state (Resolved) Chest pain (Resolved) Chronic UTI (urinary tract infection) (Resolved) Chronic neck pain (Resolved) Confusion (Resolved) Confusion (Resolved) Diarrhea (Resolved) Drug induced retention of urine (Resolved) Drug-induced retention of urine (Resolved) Excessive falling (Resolved) Excessive falling (Resolved) Fatigue (Resolved) Fatigue (Resolved) History of diabetes mellitus, type II (Resolved) Hyperkalemia (Resolved) Hyperkalemia (Resolved) Hyponatremia (Resolved) Hyponatremia (Resolved) Impingement syndrome of right shoulder (Resolved) Impingement syndrome of right shoulder (Resolved) 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) Lumbar back pain (Resolved) Nausea and vomiting (Resolved) Nausea and vomiting (Resolved) Neck pain, chronic (Resolved) Numbness and tingling of upper extremity (Resolved) Other assisted (current) drug therapy (Resolved) Peripheral edema (Resolved) Peripheral edema (Resolved) Pseudomonas infection (Resolved) Right lower lobe pneumonia (Resolved) Right shoulder pain (Resolved) Rotator cuff arthropathy (Resolved) Sepsis (Resolved) UTI (urinary tract infection) (Resolved) Urinary incontinence, mixed (Resolved) Past Surgical History (Last Reviewed 05/29/19 @ 10:13 by CATHIE Padron) H/O section (Chronic) H/O colonoscopy (Chronic) H/O gastric bypass (Chronic) History of back surgery (Chronic) History of cholecystectomy (Chronic) History of hernia surgery (Chronic) History of hysterectomy (Chronic ~1969) History of shoulder surgery (Chronic) History of total bilateral knee replacement (Chronic) Hx of cataract surgery (Chronic) Family History (Last Reviewed 05/29/19 @ 10:13 by CATHIE Padron) Mother Arthritis Diabetes Father Arthritis Cancer Prostate cancer Brother Cancer Esophageal cancer Social History (Last Updated 05/29/19 @ 11:40 by CATHIE Padron) Patient's former smoker No alcohol use Ambulates with a walker Resides assisted living facility but was recently discharged to [facility] Medical - H&P: Meds Home Medications Medication Instructions Recorded Confirmed Type acetaminophen 325 mg tablet 325 mg PO .COMPLEX PRN #150 tab 12/24/17 06/17/19 Rx magnesium hydroxide 400 mg/5 mL 30 ml PO ONCE ml 12/24/17 06/17/19 History oral suspension mirabegron 25 mg tablet,extended 25 mg PO QDAY 12/24/17 06/17/19 History release 24 hr tamsulosin 0.4 mg capsule 0.4 mg PO QDAY 12/24/17 06/17/19 History tizanidine 4 mg capsule 4 mg PO QHS cap 12/24/17 06/17/19 History walker, using at all times 1 dose MISC DAILY #1 each 12/24/17 06/17/19 History docusate sodium 100 mg capsule 100 mg PO QDAY #30 cap 01/08/18 06/17/19 Rx estradiol See Rx Instructions VAGINAL .QOD 01/08/18 06/17/19 Rx #42.5 g meloxicam 7.5 mg tablet 7.5 mg PO QDAY #30 tab 06/24/18 06/17/19 Rx Ferrous Sulfate [Iron] 325 mg PO DAILY 09/29/18 06/17/19 History oxybutynin chloride 5 mg tablet 5 mg PO QHS #30 tab 11/12/18 06/17/19 Rx phenazopyridine 97.5 mg tablet 97.5 mg PO TID PRN #30 tab 11/17/18 06/17/19 Rx hydroxyzine HCl 25 mg tablet 25 mg PO QID PRN #30 tab 11/19/18 06/17/19 Rx magnesium 250 mg tablet 500 mg PO BID tab 12/16/18 06/17/19 History sodium chloride 1 gram tablet 1,000 mg PO TID #90 tab 12/17/18 06/17/19 Rx blood sugar diagnostic See Rx Instructions .ROUTE 02/03/19 06/17/19 Rx .MEDSUPPLY #50 each blood-glucose meter See Rx Instructions .ROUTE 02/03/19 06/17/19 Rx .MEDSUPPLY #1 each ketorolac 0.5 % eye drops 1 drp OPHTHALMIC QID 02/03/19 06/17/19 History prednisolone acetate 1 % eye 1 drp OPHTHALMIC QID 02/03/19 06/17/19 History drops,suspension tobramycin 0.3 % eye drops 1 drp OPHTHALMIC QID ml 02/03/19 06/17/19 History omeprazole 20 mg capsule,delayed See Rx Instructions .ROUTE 03/09/19 06/17/19 Rx release .COMPLEX #30 each metformin 500 mg tablet 500 mg PO BID #60 tab 03/18/19 06/17/19 Rx duloxetine 60 mg capsule,delayed See Rx Instructions .ROUTE 04/13/19 06/17/19 Rx release .COMPLEX #30 each loperamide 2 mg capsule 2 mg PO .COMPLEX PRN #20 cap 04/28/19 06/17/19 Rx furosemide 20 mg tablet 40 mg PO QDAY #60 tab 05/18/19 06/17/19 Rx ondansetron HCl 8 mg tablet 8 mg PO Q8H PRN #30 tab 05/29/19 06/17/19 Rx Diltiazem [Cardizem] 30 mg PO TIDAC #90 tab 06/13/19 06/17/19 Rx HYDROcodone/ACETAMINOPHEN [[place] 1 tab PO QID PRN #20 tab 06/13/19 06/17/19 Rx 10-325 Tablet] Metoprolol Tartrate [Lopressor] 25 mg PO BID 06/17/19 06/17/19 History Allergies Allergy/AdvReac Type Severity Reaction Status Date / Time succinylcholine Allergy Severe Difficulty Verified 06/08/19 12:04 [From Anectine] Breathing ciprofloxacin [From Cipro] Allergy Mild Hives Verified 06/08/19 12:04 Sulfa (Sulfonamide Allergy Mild Hives Verified 06/08/19 12:04 Antibiotics) Medical - H&P: Exam - Constitutional Vitals: Temp Pulse Resp BP Pulse Ox 99.9 F H 113 H 20 135/79 100 06/17/19 21:00 06/17/19 21:00 06/17/19 21:00 06/17/19 21:00 06/17/19 21:00 Exam: General: Alert, Awake, mild distress from abdominal pain Eyes/N/T: EOMI, PERRL, dry MM Head/Neck: neck supple, normocephalic atraumatic CV: RRR, No murmurs, normal s1/s2 Pulm: Clear b/l, no wheezing/rhonchi/rales Abd: soft, generalized tenderness to palpation , decreased bowel sounds x4 Ext: no clubbing/cyanosis, 2-3+ b/l LE edema Neuro: Alert, no focal deficits, moves all extremities, CN 2-12 grossly intact, symmetrical strength b/l upper/lower, sensations intact b/l upper/lower Skin: warm/dry Medical - H&P: Reslt - Labs CBC & Chem 7: 06/17/19 15:29 06/17/19 15:29 Labs: Short CBC 06/17/19 Range/Units 15:29 WBC 23.3 H (4.50-11.00) K/mcL Hgb 9.7 L (11.2-15.7) g/dL Hct 29.2 L (34.1-44.9) % Plt Count 191 (140-440) K/mcL BMP 06/17/19 15:29 Sodium 135 Potassium 5.5 H Chloride 98 Carbon Dioxide 16 L BUN 29 H Creatinine 1.2 H Glucose 227 H Calcium 7.8 L Liver Function 06/17/19 Range/Units 15:29 Total Bilirubin 0.4 (0.0-1.0) mg/dL AST 24 (0-37) U/l ALT 23 (0-40) U/l Alkaline Phosphatase 229 H (39-117) U/L Albumin 2.3 L (3.2-5.2) gm/dL Urine 06/17/19 Range/Units 16:50 Urine Color Nava Urine Appearance Clear Urine pH 5.0 (5.0-9.0) Ur Specific [place] 1.024 (1.000-1.035) Urine Protein 30 A (NEG) mg/dL Urine Glucose (UA) Negative (NEG) mg/dL Medical - H&P: A/P - Narrative A/P Narrative: A: *SBO (h/o [place]-en-y): *UTI with recurrent UTI's (h/o pseudomonas/e coli/klebsiella): *Leukocytosis: 2/2 UTI likely vs GI source *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 difficile enterocolitis: a couple day left of oral vanco, switch to IV flagyl while npo *DM type II: *Chronic back pain/DJD: on opioids at home *HTN: *GERD: *Anemia chronic: Plan: -NPO, IVF -Dr. Barker following for bowel mgmt, f/u imaging in AM, -Cefepime/Flagyl, pending UC/BC -check man diff and PCT -pain control -monitor electrolytes -hold oral CCB/BB and will be on lopressor 5mg IV q6 while npo -hold home lasix for now -SSI, hold metformin/sitagliptin for now -pt/ot -f/u with urology -ppx: Heparin DNR
[2019-06-17] MEDS: 0.9 % SODIUM CHLORIDE 10 ML SYRINGE IV SCH (22:00)
[2019-06-17] MEDS: CEFEPIME 2 GM VIAL IV SCH (22:18)
[2019-06-17] MEDS: metroNIDAZOLE 500 MG/100 ML BAG IV SCH (23:45)
[2019-06-17] MEDS: METOCLOPRAMIDE 10 MG/2 ML VIAL IV SCH (23:45)
[2019-06-18 01:07] LABS: Lymphocytes % 2 % (15-49); Monocytes % (Manual) 5 % (1-12); Platelet Estimate NORMAL (NORMAL); RBC Morphology NORMAL (NORMAL); Segmented Neutrophils % 93 % (38-78)
[2019-06-18] MEDS: METOPROLOL TARTRATE 5 MG/5 ML VIAL IV SCH ×2 (02:07→18:58)
[2019-06-18] MEDS: 0.9 % SODIUM CHLORIDE 1,000 ML IV SCH ×3 (02:41→17:49)
[2019-06-18 03:24] LABS: Hemoglobin A1C 7.5 % HGB (4.0-6.0)
[2019-06-18] MEDS: metroNIDAZOLE 500 MG/100 ML BAG IV SCH ×3 (06:28→22:40)
[2019-06-18] MEDS: METOCLOPRAMIDE 10 MG/2 ML VIAL IV SCH ×3 (06:28→17:48)
[2019-06-18] MEDS: 0.9 % SODIUM CHLORIDE 10 ML SYRINGE IV SCH ×3 (06:35→21:13)
[2019-06-18] MEDS ORDERED: INSULIN LISPRO 1 UNIT/0.01 ML UNIT SQ SCH (07:30)
[2019-06-18 07:53] LABS: Hematocrit 24.8 % (34.1-44.9); Hemoglobin 8.3 g/dL (11.2-15.7); Mean Cell Volume 90.5 fL (80.0-100.0); Mean Corpuscular HGB Conc 33.5 g/dL (31.0-36.0); Mean Platelet Volume 13.1 fL (7.4-10.4); Platelet Count 169 K/mcL (140-440); RBC 2.74 M/mcL (3.59-5.38); Red Cell Distribution Width 18.1 % (11.5-14.5); WBC 17.8 K/mcL (4.50-11.00)
--- NOTE | 2019-06-18 08:14 | Internal Med Progress Note ---
Medical - PN: Subj Patient information: Note initiated : 06/18/19 at 8:10 am Service Date, if different from initiated Date: [] Patient: Esme Soriano a 78 y/o F admitted on 06/17/19 for Abdominal Pain, No BM x4 days.. Chief Complaint: [] Interval history: Ms. Soriano is a 78 year old F Patient presents to the ED for increasing abdominal pain and distention. She was recently admitted for E. coli urinary tract infection and C. difficile enterocolitis septic shock. Patient has had some nausea vomiting. She has not had a bowel movement since the day she was discharged. She is passing flatus. Abdominal pain is achy/crampy in all over. Had a poor oral intake over the past few days. Evaluation in the ED revealed a leukocytosis of mild bump in her creatinine and CT imaging which was concerning for high-grade bowel obstruction. Dr. Barker is constant tactic from the ED. She is afebrile but noted to have a leukocytosis. Has a history of recurrent urinary tract infections. Her urinalysis shows 25 leukocyte Estrace and 16 WbC. Urinalysis on the showed 250 leukocyte esterase and 174 WBC. Blood pressure was noted to be low in the 80s when she first arrived as well and was given IV fluid bolus with resolution and blood pressures in the 120s and 130s thereafter 06/18 No BM or flatus it sounds. Patient remembers me and states she does feel little better than yesterday but still seems to be in pain, chronic pain compounding issue. Leukocytosis improving. Kidney function improving. Potassium within normal limits. Pending abdominal film this morning and further recs per surgery. Review of Systems: denies headache/fever/chills/nausea/vomiting/chest pain/cough/dyspnea/diarrhea. Otherwise see above. - Constitutional Vitals: Vital Signs Temp Pulse Resp BP Pulse Ox 98.6 F 107 H 20 127/64 100 06/18/19 07:23 06/18/19 07:23 06/18/19 07:23 06/18/19 07:23 06/18/19 07:23 Period Temp Pulse Resp BP Sys/Romero Pulse Ox Last 24 Hr 98.0 F-99.9 F 50-116 0-22 80-142/47-106 82-100 Intake and Output 06/17/19 06/18/1906/18/20 21:59 05:59 13:59 Intake Total 1999 100 Output Total 200 Balance 1999 Weight 64.909 kg Intake & Output: Intake & Output 06/17/19 06/18/19 06/18/19 21:59 05:59 13:59 Intake Total 1999 100 Output Total 200 Balance 1999 Weight 64.909 kg Intake: IV 1999 100 Sodium Chloride 0.9% 1,000 ml @ 2000 Wide Open IV BOLUS ONE Rx#: [id number] Oral 0 Output: Urine Catheter Amount 200 Other: Urine Appearance Clear Urine Color Dark Nava Dark Nava Urine Odor Strong Exam: General: Alert, Awake, mild distress from abdominal pain Eyes/N/T: EOMI, Head/Neck: neck supple, CV: RRR, No murmurs, Pulm: Clear b/l, no wheezing/rhonchi/rales Abd: soft, generalized tenderness to palpation , + BSx4 Ext: no clubbing/cyanosis, 2-3+ b/l LE edema Neuro: Alert, no focal deficits, moves all extremities, Skin: warm/dry Medical - PN: Obj Da - Labs CBC & Chem 7: 06/18/19 06:10 06/18/19 06:10 Labs: Abnormal Lab Results 06/18/19 06/17/19 06/17/19 06:10 16:50 15:29 WBC 17.8 H RBC 2.74 L Hgb 8.3 L Hct 24.8 L RDW 18.1 H MPV 13.1 H Gran % Lymph % (Auto) Gran # Lymph # (Auto) Seg Neutrophils % Lymphocytes % Potassium 5.5 H Carbon Dioxide 16 L Anion Gap 21.0 H BUN 29 H Creatinine 1.2 H Glucose 227 H Hemoglobin A1c Calcium 7.8 L Alkaline Phosphatase 229 H Total Protein 5.4 L Albumin 2.3 L Albumin/Globulin Ratio 0.7 L Urine Protein 30 A Urine Ketones 5/tr A Urine Occult Blood 0.03 A Ur Leukocyte Esterase 25 A Urine RBC 7 H Urine WBC 16 H Hyaline Casts 21 H Urine Yeast (Budding) Mod A 06/17/19 06/17/19 06/17/19 15:29 15:28 15:28 WBC 23.3 H RBC 3.25 L Hgb 9.7 L Hct 29.2 L RDW 17.9 H MPV 13.2 H Gran % 94.2 H Lymph % (Auto) 1.8 L Gran # 21.90 H Lymph # (Auto) 0.43 L Seg Neutrophils % 93 H Lymphocytes % 2 L Potassium Carbon Dioxide Anion Gap BUN Creatinine Glucose Hemoglobin A1c 7.5 H Calcium Alkaline Phosphatase Total Protein Albumin Albumin/Globulin Ratio Urine Protein Urine Ketones Urine Occult Blood Ur Leukocyte Esterase Urine RBC Urine WBC Hyaline Casts Urine Yeast (Budding) Meds: Medications Acetaminophen (Tylenol) 650 mg PO Q6HP PRN PRN Reason: PAIN/FEVER > 101 Albuterol/Ipratropium (Duoneb) 3 ml NEB Q4HP PRN PRN Reason: Shortness Of Breath Cefepime HCl (Maxipime) 2 gm IV Q12H [facility]; Protocol Last Admin: 06/17/19 22:18 Dose: 2 gm Documented by: Dextrose (Dextrose 50%) 0 ml IV UD PRN PRN Reason: Hypoglycemia Diagnostic Test (Pha) (Accu-Chek) 1 each FS ACHS [facility] Last Admin: 06/18/19 07:18 Dose: 1 each Documented by: Duloxetine HCl (Cymbalta) 60 mg PO QAM SNOW Famotidine (Pepcid) 20 mg IV HS SNOW Glucose (Insta-Glucose) 15 gm PO PRN PRN PRN Reason: Hypoglycemia Heparin Sodium (Porcine) (Heparin) 5,000 unit SQ ONCE ONE Stop: 06/18/19 21:23 Heparin Sodium (Porcine) (Heparin) 5,000 unit SQ Q12 SNOW Hydralazine HCl (Apresoline) 0 mg IV Q2HP PRN PRN Reason: Hypertension Potassium Chloride 40 meq/ (Dextrose) 520 mls @ 130 mls/hr IV UD PRN PRN Reason: Potassium < 3 Magnesium Sulfate (Magnesium Sulfate) 2 gm in 50 mls @ 50 mls/hr IV UD PRN PRN Reason: Magnesium </= 1.6 Sodium Chloride (Sodium Chloride 0.9%) 1,000 mls @ 100 mls/hr IV .Q10H SNOW Last Admin: 06/17/19 21:45 Dose: 100 mls/hr Documented by: Metronidazole (Flagyl) 500 mg in 100 mls @ 100 mls/hr IV Q8H [facility]; Protocol Last Admin: 06/18/19 06:28 Dose: 100 mls/hr Documented by: Insulin Human Lispro (Humalog) 0 unit SQ ACHS [facility]; Protocol Last Admin: 06/18/19 07:39 Dose: 4 units Documented by: Lactulose (Cephulac) 20 gm PO DAILYP PRN PRN Reason: Constipation Methylnaltrexone Ensign (Relistor) 12 mg SQ DAILY [facility] Stop: 06/20/19 09:01 Metoclopramide HCl (Reglan) 10 mg IV Q6 [facility] Last Admin: 06/18/19 06:28 Dose: 10 mg Documented by: Metoprolol Tartrate (Lopressor) 5 mg IV Q6HP [facility] Last Admin: 06/18/19 02:07 Dose: 5 mg Documented by: Morphine Sulfate (Morphine) 0 mg IV Q3HP PRN PRN Reason: Pain Last Admin: 06/18/19 07:19 Dose: 2 mg Documented by: Non-Formulary Medication (Ketorolac Tromethamine [Ketorolac Tromethamine]) 1 drp OPHTHALMIC QID [facility] Non-Formulary Medication (Prednisolone Acetate [Prednisolone Acetate]) 1 drp OPHTHALMIC QID [facility] Non-Formulary Medication (Tobramycin 0.3% Ophth Drops [Tobrex 0.3% Ophth Drops]) 1 drp OPHTHALMIC QID [facility] Ondansetron HCl (Zofran) 4 mg IV Q4HP PRN PRN Reason: Nausea And Vomiting Last Admin: 06/17/19 22:55 Dose: 4 mg Documented by: Polyethylene Glycol (Miralax) 17 gm PO DAILYP PRN PRN Reason: Constipation Potassium Chloride (Kdur) 40 meq PO UD PRN PRN Reason: Potssium is 3-3.5 Potassium Chloride (Kdur) 40 meq PO UD PRN PRN Reason: Potassium < 3 Senna (Senokot) 2 tab PO DAILYP PRN PRN Reason: Constipation Sodium Chloride (Saline Flush) 10 ml IV Q8 [facility] Last Admin: 06/18/19 06:35 Dose: Not Given Documented by: Medical - PN: A/P - Time Spent With Patient Total time spent is greater than 50% in coordination of care (as documented) at patient's floor/unit and/or counseling patient: - Narrative A/P Narrative: A: *SBO (h/o [place]-en-y): -no BM *UTI with recurrent UTI's (h/o pseudomonas/e coli/klebsiella): *Leukocytosis: 2/2 UTI likely vs GI source. improving *SCOT on CKD II: *Volume depletion: improving *recent C. difficile enterocolitis: had a couple days left of oral vanco on admit, switched to IV flagyl while npo *DM type II: A1c 7.5 *Chronic back pain/DJD: on opioids at home *HTN: *GERD: *Anemia chronic: Plan: -NPO, IVF -Dr. Barker following for bowel mgmt, f/u imaging -Cefepime/Flagyl, pending UC/BC -pain control -monitor electrolytes -hold oral CCB/BB and will be on lopressor 5mg IV q6 while npo -hold home lasix for now -SSI, hold metformin/sitagliptin for now -pt/ot -ppx: Heparin DNR Medical - PN: Qual - VTE Deep Vein Thrombosis/Pulmonary Embolism Present on Admission: No
[2019-06-18 08:22] LABS: Bilirubin,Direct < 0.2 mg/dL (0.0-0.3); Chloride 106 mmol/L (96-108)
[2019-06-18 08:25] LABS: ALT/SGPT 19 U/l (0-40); AST/SGOT 18 U/l (0-37); Albumin 1.9 gm/dL (3.2-5.2); Albumin/Globulin Ratio 0.7 (1.0-2.3); Alkaline Phosphatase 197 U/L (39-117); Bilirubin,Total 0.3 mg/dL (0.0-1.0); Blood Urea Nitrogen 28 mg/dl (8-23); Carbon Dioxide 18 mmol/L (22-30); Globulin 2.8 gm/dL (2.2-3.7); Glomerular Filtration Rate 53; Glucose 206 mg/dL (70-105); Lactate Dehydrogenase 477 U/L (94-250); Phosphorous 3.3 mg/dL (2.7-4.5); Triglycerides 92 mg/dl (<150); Uric Acid 10.1 mg/dL (2.5-8.0)
[2019-06-18 08:42] LABS: Anisocytosis 2+ (NONE SEEN); Band Neutrophils % 8 % (0-10); Hypochromasia FEW (NONE SEEN); Lymphocytes % 3 % (15-49); Monocytes % (Manual) 4 % (1-12); Ovalocytes FEW (NONE SEEN); Platelet Estimate NORMAL (NORMAL); Polychromasia FEW (NONE SEEN); RBC Morphology ABNORM (NORMAL); Segmented Neutrophils % 85 % (38-78); Target Cells FEW (NONE SEEN)
[2019-06-18] MEDS ORDERED: TOBRAMYCIN 0.3% OPHTHALMIC SCH (09:00)
[2019-06-18] MEDS ORDERED: KETOROLAC TROMETHAMINE OPHTHALMIC SCH (09:00)
[2019-06-18] MEDS ORDERED: METHYLNALTREXONE BROMIDE 12 MG/0.6 ML SYRINGE SQ SCH (09:00)
[2019-06-18] MEDS ORDERED: PREDNISOLONE ACETATE OPHTHALMIC SCH (09:00)
[2019-06-18] MEDS: CEFEPIME 2 GM VIAL IV SCH ×2 (10:04→21:14)
[2019-06-18] MEDS: INSULIN LISPRO 1 UNIT/0.01 ML UNIT SQ SCH ×2 (11:42→18:25)
--- NOTE | 2019-06-18 12:20 | XRay Report ---
CLINICAL INFORMATION: FOLLOW -UP OF SMALL BOWEL OBSTRUCTION COMPARISON: Abdomen and pelvic CT 06/17/2019. FINDINGS: The stomach and proximal small bowel loops are mildly dilated with decompressed of the distal small bowel and colon. There is no free air, soft tissue mass, organomegaly or pathologic calcification. IMPRESSION: Partial small bowel obstruction pattern - no change Interpreted and Authenticated by: Rob Anglin 06/18/19
[2019-06-18] MEDS ORDERED: FUROSEMIDE 40 MG/4 ML VIAL IV ONE (14:26)
--- NOTE | 2019-06-18 17:37 | General Surgery Progress Note ---
Subjective Patient reports: still having pain, flatus (no), no bowel movement, afebrile Narrative: Note initiated : 06/18/19 at 5:37 pm Service Date, if different from initiated Date: [] Patient: Esme Soriano 78 y/o F admitted on 06/17/19 for Abdominal Pain, No BM x4 days.. Chief Complaint: [Patient is clinically better. She however is constantly groaning and complaining of pain. She has been afebrile since admission and her white blood count is decreased to 17.8. Hemoglobin is 8.3. BUN is improved at 28 with a creatinine of 1. Her lactate is 2.1. Her serum calcium is 7 with an ionized calcium of 1 however this is in the presence of a albumin of 1.9. Discussed her with Dr. Soriano and he will give her albumin and Lasix to mobilize some of her anasarca. She will get 4 doses of IV calcium. Small bowel follow- through will be ordered for the a.m.] Objective Temp Pulse Resp BP Pulse Ox 98.0 F 114 H 22 125/75 98 06/18/19 12:00 06/18/19 12:00 06/18/19 12:00 06/18/19 12:00 06/18/19 12:00 - Additional Data Intake & Output - Last 24 hours: Intake & Output 06/16/19 06/17/19 06/18/19 06/19/19 05:59 05:59 05:59 05:59 Intake Total 2100 1200 Output Total 200 101 Balance 1900 1099 Weight 143 lb 1.6 oz 143 lb 1.6 oz - General physical appearance moderate distress, moderate pain, cachectic, chronically ill - Eyes PERRL, normal ocular movement - ENT normal pinna, normal nares, normal mucosa, no hearing loss, no congestion - Neck no masses, no bruits, trachea midline, no lymphadenopathy, no venous distension - Respiratory normal expansion, normal respiratory effort, clear to auscultation - Cardiovascular Cardiovascular exam: Present: +S1, +S2, tachycardia. Absent: JVD - Abdomen tender (moderate diffuse tenderness but less distended; hypoactive bowel sounds) - Integumentary no rash, no growths, no abnormal pigmentation - Labs 06/18/19 06:10 06/18/19 06:10 Diabetes panel 02/06/17/19 06/18/19 Range/Units 15:28 15:29 06:10 Sodium 143 (133-145) mmol/L Potassium 4.6 (3.3-5.1) mmol/L Chloride 106 (96-108) mmol/L Carbon Dioxide 18 L (22-30) mmol/L BUN 28 H (8-23) mg/dl Creatinine 1.0 (0.6-1.1) mg/dl Glucose 206 H (70-105) mg/dL Hemoglobin A1c 7.5 H (4.0-6.0) % HGB Calcium 7.0 L (8.6-10.4) mg/dl AST 18 (0-37) U/l ALT 19 (0-40) U/l Alkaline Phosphatase 229 H 197 H (39-117) U/L Total Protein 4.7 L (5.9-8.4) gm/dL Albumin 2.3 L 1.9 L (3.2-5.2) gm/dL Triglycerides 92 (<150) mg/dl Calcium panel 06/17/19 06/18/19 06/18/19 Range/Units 15: 06:10 14:27 Calcium 7.0 L (8.6-10.4) mg/dl Ionized Calcium Jhonny 1.00 L (1.16-1.32) mmol/L Phosphorus 3.3 (2.7-4.5) mg/dL Albumin 2.3 L 1.9 L (3.2-5.2) gm/dL Pituitary panel 06/18/19 Range/Units 06:10 Sodium 143 (133-145) mmol/L Potassium 4.6 (3.3-5.1) mmol/L Chloride 106 (96-108) mmol/L Carbon Dioxide 18 L (22-30) mmol/L BUN 28 H (8-23) mg/dl Creatinine 1.0 (0.6-1.1) mg/dl Glucose 206 H (70-105) mg/dL Calcium 7.0 L (8.6-10.4) mg/dl Adrenal panel 06/17/19 06/18/19 Range/Units 15:29 06:10 Sodium 143 (133-145) mmol/L Potassium 4.6 (3.3-5.1) mmol/L Chloride 106 (96-108) mmol/L Carbon Dioxide 18 L (22-30) mmol/L BUN 28 H (8-23) mg/dl Creatinine 1.0 (0.6-1.1) mg/dl Glucose 206 H (70-105) mg/dL Calcium 7.0 L (8.6-10.4) mg/dl Total Bilirubin 0.3 (0.0-1.0) mg/dL AST 18 (0-37) U/l ALT 19 (0-40) U/l Alkaline Phosphatase 229 H 197 H (39-117) U/L Total Protein 4.7 L (5.9-8.4) gm/dL Albumin 2.3 L 1.9 L (3.2-5.2) gm/dL Assessment and Plan (1) Drug-induced constipation Status: Acute Assessment and plan: Continue Relistor 12 mg daily Current Visit: Yes (2) Sepsis Status: Acute Assessment and plan: Continue antibiotic coverage Current Visit: Yes (3) Change in mental status Status: Acute Current Visit: No (4) Opioid dependence Status: Chronic Current Visit: No (5) Urinary incontinence Problem details: 12/24/17 refer to new urologist at patient request Status: Pathology Laboratory Aide ronnie Current Visit: No - Time Spent With Patient Total time spent is greater than 50% in coordination of care (as documented) at patient's floor/unit and/or counseling patient:
[2019-06-18] MEDS ORDERED: CALCIUM GLUCONATE 4.65 MEQ/10 ML VIAL IV ONE (17:42)
[2019-06-18] MEDS ORDERED: ALBUMIN HUMAN 25 GM/100 ML BAG IV ONE (17:51)
[2019-06-18] MEDS ORDERED: CALCIUM GLUCONATE 4.65 MEQ/10 ML VIAL ONE ×2 (17:56→21:03)
[2019-06-18] MEDS: CALCIUM GLUCONATE 9.3 MEQ in DEXTROSE 5% IN WATER 50 ML IV SCH ×2 (18:25→21:11)
[2019-06-18] MEDS ORDERED: HEPARIN 5,000 UNIT/ML VIAL SQ SCH (21:00)
[2019-06-18] MEDS ORDERED: FAMOTIDINE/PF 20 MG/2 ML VIAL IV SCH (21:00)
[2019-06-18] MEDS ORDERED: HEPARIN 5,000 UNIT/ML VIAL SQ ONE (21:22)
[2019-06-18] MEDS ORDERED: FUROSEMIDE 100 MG/10 ML VIAL IV ONE (21:33)
[2019-06-19] MEDS: INSULIN LISPRO 1 UNIT/0.01 ML UNIT SQ SCH
[2019-06-19] MEDS ORDERED: METOPROLOL TARTRATE 5 MG/5 ML VIAL IV SCH
[2019-06-19] MEDS: 0.9 % SODIUM CHLORIDE 1,000 ML IV SCH ×2 (02:19→03:24)
[2019-06-19] MEDS: METOCLOPRAMIDE 10 MG/2 ML VIAL IV SCH (02:26)
[2019-06-19] MEDS ORDERED: LACTOPEROXI/GLUC OXID/POT THIO 1 EACH GEL..EA. TOPICAL PRN (02:42)
[2019-06-19] MEDS ORDERED: 0.9 % SODIUM CHLORIDE 1,000 ML BAG IV SCH (03:00)
[2019-06-19] MEDS ORDERED: LORazepam 2 MG/ML VIAL ONE (04:40)
[2019-06-19] MEDS: LORazepam 2 MG/ML VIAL IV PRN ×2 (04:44→23:37)
[2019-06-19] MEDS: 0.9 % SODIUM CHLORIDE 10 ML SYRINGE IV SCH ×3 (05:49→21:32)
[2019-06-19] MEDS ORDERED: 0.9 % SODIUM CHLORIDE 10 ML SYRINGE IV SCH (06:00)
[2019-06-19] MEDS ORDERED: SCOPOLAMINE 1 PATCH PATCH TOPICAL ONE (09:00)
[2019-06-19] MEDS ORDERED: DULoxetine 30 MG CAPSULE PO SCH (09:00)
--- NOTE | 2019-06-19 11:44 | Internal Med Progress Note ---
Medical - PN: Subj Patient information: Note initiated : 06/19/19 at 11:35 am Service Date, if different from initiated Date: [] Patient: Esme Soriano a 78 y/o F admitted on 06/17/19 for Abdominal Pain, No BM x4 days.. Chief Complaint: f/u bowel obstruction Interval history: 06/17 Ms. Soriano is a 78 year old F who patient presents to the ED for increasing abdominal pain and distention. She was recently admitted for E. coli urinary tract infection and C. difficile enterocolitis septic shock. Patient has had some nausea vomiting. She has not had a bowel movement since the day she was discharged. She is passing flatus. Abdominal pain is achy/crampy in all over. Had a poor oral intake over the past few days. Evaluation in the ED revealed a leukocytosis of mild bump in her creatinine and CT imaging which was concerning for high-grade bowel obstruction. Dr. Barker is constant tactic from the ED. She is afebrile but noted to have a leukocytosis. Has a history of recurrent urinary tract infections. Her urinalysis shows 25 leukocyte Estrace and 16 WbC. Urinalysis on the showed 250 leukocyte esterase and 174 WBC. Blood pressure was noted to be low in the 80s when she first arrived as well and was given IV fluid bolus with resolution and blood pressures in the 120s and 130s thereafter 06/18 No BM or flatus it sounds. Patient remembers me and states she does feel little better than yesterday but still seems to be in pain, chronic pain compounding issue. Leukocytosis improving. Kidney function improving. Potassium within normal limits. Pending abdominal film this morning and further recs per surgery. 06/19 During the afternoon yesterday, 06/18, patient was calling out with abdominal pain. Yesterday evening, she was not that responsive to nursing, and the patient's daughter was called back in yesterday evening. I saw the patient, she had upper airway sounds present, feet were cool, upper extremities were warm, posterior lung daily were without rales, there are transmitted upper airway sounds present. She rales slightly while he was moving her limbs to examine her back and did turn her face towards me, but did not see anything meaningfully. Patient received 40 mg of furosemide yesterday afternoon, as well as albumin, subsequently 80 mg of furosemide with only several 100 mL of urine output. Her daughter is quite worried about her course. I advised that we were p roviding supportive care and antibiotics and from a laboratory standpoint both her white count and renal function is improved from admission. Early this morning, 06/19, after the patient's son is also arrived, decision was made to move to comfort care. Pertinent ROS: Review of systems not available secondary to encephalopathy. - Constitutional Vitals: Vital Signs Temp Pulse Resp BP Pulse Ox 97.4 F 123 H 16 95/48 81 L 06/18/19 19:17 06/19/19 08:00 06/19/19 08:00 06/18/19 19:17 06/19/19 08:00 Period Temp Pulse Resp BP Sys/Romero Pulse Ox Last 24 Hr 97.4 F-98.3 F 110-123 16-22 95-125/48-75 81-100 Intake and Output 06/18/19 06/19/19 06/19/19 21:59 05:59 13:59 Intake Total 1200 338 Output Total 300 100 950 Balance 900 238 -950 Weight 143 lb 1.6 oz Intake & Output: Intake & Output 06/18/19 06/19/19 06/19/19 21:59 05:59 13:59 Intake Total 1200 338 Output Total 300 100 950 Balance 900 238 -950 Weight 143 lb 1.6 oz Intake: IV 1200 338 Sodium Chloride 0.9% 1,000 ml @ 1000 168 100 mls/hr IV .Q10H SNOW Rx#: [id number] Calcium Gluconate 9.3 Meq In 70 Dextrose 5% in Water 50 ml @ 70 mls/hr IV TID@0900,1800,2200 SNOW Rx#:[id number] Oral 0 Output: Urine Catheter Amount 300 100 950 Other: Urine Appearance Clear Clear Cloudy Uretheral (Chakraborty) Clear Cloudy Urine Color Light Nava Dark Nava Dark Yellow Uretheral (Chakraborty) Light Nava Dark Yellow Urine Odor Strong Strong Uretheral (Chakraborty) Strong Normal Exam: General: Appears comfortable Respirations: Bradypneic Neuro: Does not arouse to voice Medical - PN: Obj Da - Labs CBC & Chem 7: 06/18/19 06:10 06/18/19 06:10 Labs: Abnormal Lab Results 06/18/19 06/18/19 06/18/19 14:27 07:14 06:10 WBC RBC Hgb Hct RDW MPV Gran % Lymph % (Auto) Gran # Lymph # (Auto) Seg Neutrophils % Lymphocytes % RBC Morphology Polychromasia Hypochromasia Anisocytosis Target Cells Ovalocytes VBG Lactic Acid 2.1 H Potassium Carbon Dioxide 18 L Anion Gap 19.0 H BUN 28 H Creatinine Glucose 206 H Hemoglobin A1c Uric Acid 10.1 H Calcium 7.0 L Ionized Calcium Jhonny 1.00 L Magnesium 3.8 H Alkaline Phosphatase 197 H Lactate Dehydrogenase 477 H Total Protein 4.7 L Albumin 1.9 L Albumin/Globulin Ratio 0.7 L Urine Protein Urine Ketones Urine Occult Blood Ur Leukocyte Esterase Urine RBC Urine WBC Hyaline Casts Urine Yeast (Budding) 06/18/19 06/17/19 06/17/19 06:10 16:50 15:29 WBC 17.8 H RBC 2.74 L Hgb 8.3 L Hct 24.8 L RDW 18.1 H MPV 13.1 H Gran % Lymph % (Auto) Gran # Lymph # (Auto) Seg Neutrophils % 85 H Lymphocytes % 3 L RBC Morphology Abnorm A Polychromasia Few A Hypochromasia Few A Anisocytosis 2+ A Target Cells Few A Ovalocytes Few A VBG Lactic Acid Potassium 5.5 H Carbon Dioxide 16 L Anion Gap 21.0 H BUN 29 H Creatinine 1.2 H Glucose 227 H Hemoglobin A1c Uric Acid Calcium 7.8 L Ionized Calcium Jhonny Magnesium Alkaline Phosphatase 229 H Lactate Dehydrogenase Total Protein 5.4 L Albumin 2.3 L Albumin/Globulin Ratio 0.7 L Urine Protein 30 A Urine Ketones 5/tr A Urine Occult Blood 0.03 A Ur Leukocyte Esterase 25 A Urine RBC 7 H Urine WBC 16 H Hyaline Casts 21 H Urine Yeast (Budding) Mod A 06/17/19 06/17/19 06/17/19 15:29 15:28 15:28 WBC 23.3 H RBC 3.25 L Hgb 9.7 L Hct 29.2 L RDW 17.9 H MPV 13.2 H Gran % 94.2 H Lymph % (Auto) 1.8 L Gran # 21.90 H Lymph # (Auto) 0.43 L Seg Neutrophils % 93 H Lymphocytes % 2 L RBC Morphology Polychromasia Hypochromasia Anisocytosis Target Cells Ovalocytes VBG Lactic Acid Potassium Carbon Dioxide Anion Gap BUN Creatinine Glucose Hemoglobin A1c 7.5 H Uric Acid Calcium Ionized Calcium Jhonny Magnesium Alkaline Phosphatase Lactate Dehydrogenase Total Protein Albumin Albumin/Globulin Ratio Urine Protein Urine Ketones Urine Occult Blood Ur Leukocyte Esterase Urine RBC Urine WBC Hyaline Casts Urine Yeast (Budding) Meds: Medications Albuterol/Ipratropium (Duoneb) 3 ml NEB Q4HP PRN PRN Reason: Shortness Of Breath Glucose Oxid/Lactoperoxid/Muramidas (Biotene) 1 each TOPICAL PRN PRN PRN Reason: Dry Mouth Sodium Chloride (Sodium Chloride 0.9%) 1,000 mls @ 20 mls/hr IV .Q24H [facility] Last Admin: 06/19/19 03:24 Dose: 20 mls/hr Documented by: Lorazepam (Ativan) 0 mg IV Q1HP PRN; Protocol PRN Reason: ANXIETY/SEDATION Last Admin: 06/19/19 04:44 Dose: 1 mg Documented by: Morphine Sulfate (Morphine) 0 mg IV Q1HP PRN PRN Reason: Pain Last Admin: 06/19/19 09:29 Dose: 4 mg Documented by: Morphine Sulfate (Morphine) 4 mg NEB Q4HP PRN PRN Reason: Shortness Of Breath Ondansetron HCl (Zofran) 4 mg IV Q4HP PRN PRN Reason: Nausea And Vomiting Last Admin: 06/17/19 22:55 Dose: 4 mg Documented by: Sodium Chloride (Saline Flush) 10 ml IV Q8 [facility] Last Admin: 06/19/19 05:49 Dose: Not Given Documented by: Medical - PN: A/P - Time Spent With Patient Total time spent is greater than 50% in coordination of care (as documented) at patient's floor/unit and/or counseling patient: Greater than 35 minutes - Narrative A/P Narrative: A: *SBO (h/o [place]-en-y): -no BM, ongoing abdominal pain -Declining clinical status overnight, decision made to transition to comfort measures *UTI with recurrent UTI's (h/o pseudomonas/e coli/klebsiella): Ruled out, urine cultures no growth to date *Leukocytosis: Initially thought 2/2 UTI, though that is without growth. Now possible GI source. White count improving yesterday *SCOT on CKD II: Improved at last check yesterday *Volume depletion: improving *recent C. difficile enterocolitis: had a couple days left of oral vanco on ad suzie, switched to IV flagyl while npo, now off all antibiotics *DM type II: A1c 7.5 *Chronic back pain/DJD: on opioids at home, as needed pain and anxiety meds currently *HTN: *GERD: *Anemia chronic: Plan: Saline lock Morphine, lorazepam for comfort Discontinue antibiotics and other medications Suspect patient will pass in the hospital DNR Medical - PN: Qual - VTE Deep Vein Thrombosis/Pulmonary Embolism Present on Admission: No
[2019-06-20] MEDS: 0.9 % SODIUM CHLORIDE 1,000 ML IV SCH (04:55)
[2019-06-20] MEDS: 0.9 % SODIUM CHLORIDE 10 ML SYRINGE IV SCH (04:56)
--- NOTE | 2019-06-20 09:12 | Death Note ---
Discharge Sum: Prov - Provider Patient information: Note initiated : 06/20/19 at 9:08 am Service Date, if different from initiated Date: [] Patient: Esme Soriano a 78 y/o F admitted on 06/17/19 for Abdominal Pain, No BM x4 days.. Chief Complaint: [] Primary care physician: Amber Mak Attending physician on admission: Bernardo Lees Consults: 06/17/19 Consult to Physician [CONS] Stat Comment: Consulting Provider: Bernardo Lees Reason For Exam: Physician to Consult Consult to Physician [CONS] Stat Comment: Consulting Provider: Ned Barker Reason For Exam: Physician to Consult 06/20/19 04:22 Consult to Physician [CONS] Routine Comment: Consulting Provider: Evans Reason For Exam: Physician to Consult Pronouncing clinician: Nidhi Montes Discharge Sum: Diag - PCOD Cause of : Small bowel obstruction Discharge Sum: Summary - Date and Time Date of admission: 06/17/19 20:51 Date of : 06/20/19 Time of : 04:00 - Summary Details: 06/17 Ms. Soriano is a 78 year old F who patient presents to the ED for increasing abdominal pain and distention. She was recently admitted for E. coli urinary tract infection and C. difficile enterocolitis septic shock. Patient has had some nausea vomiting. She has not had a bowel movement since the day she was discharged. She is passing flatus. Abdominal pain is achy/crampy in all over. Had a poor oral intake over the past few days. Evaluation in the ED revealed a leukocytosis of mild bump in her creatinine and CT imaging which was concerning for high-grade bowel obstruction. Dr. Barker is constant tactic from the ED. She is afebrile but noted to have a leukocytosis. Has a history of recurrent urinary tract infections. Her urinalysis shows 25 leukocyte Estrace and 16 WbC. Urinalysis on the showed 250 leukocyte esterase and 174 WBC. Blood pressure was noted to be low in the 80s when she first arrived as well and was given IV fluid bolus with resolution and blood pressures in the 120s and 130s thereafter 06/18 No BM or flatus it sounds. Patient remembers me and states she does feel little better than yesterday but still seems to be in pain, chronic pain compounding issue. Leukocytosis improving. Kidney function improving. Potassium within normal limits. Pending abdominal film this morning and further recs per surgery. 06/19 During the afternoon yesterday, 06/18, patient was calling out with abdominal pain. Yesterday evening, she was not that responsive to nursing, and the patient's daughter was called back in yesterday evening. I saw the patient, she had upper airway sounds present, feet were cool, upper extremities were warm, posterior lung daily were without rales, there are transmitted upper airway sounds present. She rales slightly while he was moving her limbs to examine her back and did turn her face towards me, but did not see anything meaningfully. Patient received 40 mg of furosemide yesterday afternoon, as well as albumin, subsequently 80 mg of furosemide with only several 100 mL of urine output. Her daughter is quite worried about her course. I advised that we were providing supportive care and antibiotics and from a laboratory standpoint both her white count and renal function is improved from admission. Early this morning, 06/19, after the patient's son is also arrived, decision was made to move to comfort care. Patient passed at 0400 hours. She was pronounced by nursing staff. - Additional Data Attending physician: Nidhi Montes Was code activated?: No Autopsy requested?: No bar examiner notified?: No
== END 2019-06-20 05:40 | disposition expired | DRG 388 ==
LOC: ED 15:13 → MEDSUR 20:50
PROVIDERS: ADMIT Internal Medicine; ATTEND Internal Medicine